=== PATIENT | female | born 1980 | race Caucasian/White ===

== ENCOUNTER 2020-05-05 16:34 | Outpatient (REF) | payer BC, SELFPAY | END 2020-05-05 16:35 | disposition home or self-care (01) | LOC: HO.LAB 16:34 | PROVIDERS: Visit Provider Hospitalist | DX: Z20.828 Contact with and (suspected) exposure to other viral communicable diseases (principal) | CPT/HCPCS: U0003 ==

== ENCOUNTER 2020-07-23 20:38 | Emergency (ER) | payer BC, OTHER, SELFPAY ==
--- NOTE | ~2020-07-23 | XR_ITS ---
EXAMINATION: XR ANKLE, LEFT CLINICAL INFORMATION: Ankle pain COMPARISON: None TECHNIQUE: AP, lateral, and mortise views of the left ankle. FINDINGS: Visualized portion of the distal tibia and fibula demonstrate no fracture. There is no focal soft tissue swelling of the ankle. Ankle mortise is well-maintained. No gross ankle joint effusion. XR/XR ankle LT 2V IMPRESSION: No fracture or dislocation left ankle.
[2020-07-23 21:04] VITALS: BP 123/80; PULSE 82; RESP 15; TEMP 36.6; O2SAT 96; BMI 37.8
--- NOTE | 2020-07-23 21:13 | ED.LOWEXIN ---
HPI - Extremity Injury (Lower) General Chief Complaint: Extremity Injury, Lower Stated Complaint: Ankle Injury Time Seen by Provider: 07/23/20 21:13 Source: patient Mode of arrival: ambulatory History of Present Illness HPI Narrative: This is a 39-year-old female without significant past medical history who states that she misstepped and fell down 3 stairs and describes an inversion injury to the left ankle at which time she felt/heard a pop and had immediate swelling afterwards. She denies any numbness or tingling in that lower extremity. Patient denies hitting her head or LOC. Related Data Previous Rx's Medication Instructions Recorded ondansetron HCl 8 mg tablet 8 mg PO Q8H PRN #20 tab 05/05/20 hydroxyzine HCl 50 mg tablet 50 mg PO Q6H PRN 30 Days #120 tab 06/29/20 zolpidem 10 mg tablet 10 mg PO BEDTIME PRN 30 Days #30 06/29/20 tab Allergies Allergy/AdvReac Type Severity Reaction Status Date / Time acetaminophen [From PERCOCET] Allergy Severe HIVES Verified 07/23/20 21:01 oxycodone [From PERCOCET] Allergy Severe HIVES Verified 07/23/20 21:01 codeine [CODEINE] Allergy Unknown HIVES Verified 07/23/20 21:01 guaifenesin AdvReac Unknown HEART RACES Verified 07/23/20 21:01 [From ROBITUSSIN CHEST CONGESTION] Codeine Phosphate Allergy Unknown Hives Uncoded 07/23/20 21:01 Pt states no food allergies Allergy Unknown Unknown Uncoded 07/23/20 21:01 Robitussin Chest Congestion Allergy Unknown Hives Uncoded 07/23/20 21:01 Robitussin Cold/Congestion Allergy Unknown Hives Uncoded 07/23/20 21:01 Review of Systems Review of Systems: Pertinent positives and negatives as stated in HPI 10 point review of systems is otherwise negative. [facility] Past Medical History Source: nursing notes reviewed Social History Social History Alcohol intake: never Smoked in Last 30 Days: No Use of substances other than those prescribed or required for medical reasons: No Substance Use Type: Marijuana Advance Directives: No Advance Directives Information Provided: Yes Physical Exam Vital Signs: Vital Signs: Last Vital Signs Temp 97.8 F 07/23/20 21:04 Pulse 82 02/28/21 21:04 Resp 15 07/23/20 21:04 BP 123/80 07/23/20 21:04 Pulse Ox 96 07/23/20 21:04 Body Mass Index 37.8 VITAL SIGNS: Reviewed. GENERAL: Well developed, well nourished, in no acute distress. HEAD: Normocephalic/atraumatic OROPHARYNX: no oral lesions noted, posterior pharynx clear NECK: Supple, no adenopathy LUNGS: Normal breath sounds. No adventitious sounds or accessory muscle use. SpO2<96> CARDIOVASCULAR: Regular rate and rhythm without noted murmurs ABDOMEN: Soft, non-tender, non-distended with bowel sounds. LEFT ANKLE: There is swelling noted to the medial and lateral malleolus with tenderness on palpation, no mid foot or calcaneal tenderness, sensation is intact, capillary refill less than 3 seconds, palpable DP/PT pulses SKIN: Inspection of the skin reveals no rashes NEUROLOGIC: Alert and oriented x 4. Course Course Course Narrative: This is a 39-year-old female with history and clinical presentation consistent with ankle sprain which was further corroborated by x-rays that were negative for fracture or dislocation. Patient was treated with comp patient analgesics, and Alexis wrap was applied, and patient was provided with crutches and crutch training. She was then discharged in stable condition with instructions to follow-up with a primary care provider. Discharge Plan Discharge Clinical Impression: Left ankle sprain Qualifiers: Encounter type: initial encounter Involved ligament of ankle: unspecified ligament Qualified Code(s): S93.402A - Sprain of unspecified ligament of left ankle, initial encounter Patient Disposition: Home, Self-Care Instructions: Crutch Instructions (ED), Ankle Sprain (ED) Additional Instructions: 1. Tylenol 1000 mg, orally, every 6 hours as needed for pain control. Do not exceed 4000 mg within 24 hours. 2. Ibuprofen 400 mg, orally with milk or food, every 6 hours as needed for pain control. Take in conjunction with the Tylenol for synergistic effect. 3. Apply ice to unexposed skin for 15-20 minutes, 3 to 4 times a day, and elevate when possible. 4. Please follow-up with your primary care provider for re-evaluation and continued outpatient management in 2-3 days. Do not hesitate to return to the emergency department for any acute worsening of your symptoms. Prescriptions: No Action zolpidem [Ambien] 10 mg tablet 10 mg PO BEDTIME PRN (Reason: insomnia) 30 Days Qty: 30 RF: 3 hydroxyzine HCl 50 mg tablet 50 mg PO Q6H PRN (Reason: anxiety) 30 Days Qty: 120 RF: 3 ondansetron HCl 8 mg tablet 8 mg PO Q8H PRN (Reason: nausea and vomiting) Qty: 20 RF: 0 Referrals: Rikki Stearns MD [Primary Care Provider] - 2 days (Re-evaluation outpatient management of left ankle sprain.) Stand Alone Forms: Work/School Release
[2020-07-23] MEDS: Ketorolac Tromethamine 15 MG/ML VIAL IM (21:54)
[2020-07-23] MEDS: Acetaminophen 325 MG TABLET 975 MG PO (21:54)
== END 2020-07-23 22:40 | disposition home or self-care (01) ==
PROVIDERS: Emergency Provider Student in an Organized Health Care Education/Training Program; PCP Internal Medicine
DX: S93.402A Sprain of unspecified ligament of left ankle, initial encounter (principal); M25.572 Pain in left ankle and joints of left foot; W10.9XXA Fall (on) (from) unspecified stairs and steps, initial encounter; Y93.9 Activity, unspecified; Y92.9 Unspecified place or not applicable; Y99.9 Unspecified external cause status; Z79.899 Other long term (current) drug therapy
CPT/HCPCS: 73600; 96372; 99284; J1885

== ENCOUNTER 2021-03-20 09:58 | Outpatient (REF) | payer BC, OTHER, SELFPAY ==
[2021-03-20 13:05] LABS: HIV AB/AG Nonreactive (Nonreactive); HIV Num 1 0.06 S/CO (0.00-0.99); ~HepC Num1 0.07 S/CO (0.00-0.79); ~Hepatitis C Antibody Nonreactive (Nonreactive)
[2021-03-20 13:45] LABS: HBc Num1 0.07 S/CO (0.00-0.79); Hepatitis B Core Antibody Nonreactive (Nonreactive)
[2021-03-20 14:00] LABS: CT PCR NOT DETECTED (Not Detect.); NG PCR NOT DETECTED (Not Detect.)
[2021-03-21 07:49] LABS: Syphilis Screen Nonreactive (Nonreactive)
[2021-03-21 08:30] LABS: BV Int Neg Control Negative (Negative); BV Int Pos Control Positive (Positive)
[2021-03-23 15:01] LABS: HPV mRNA E6/E7 rflx Not Detected (Not Detected)
== END 2021-03-20 09:59 | disposition home or self-care (01) ==
LOC: HO.LAB 09:58
PROVIDERS: PCP Internal Medicine; Visit Provider Advanced Practice Midwife
DX: Z01.411 Encounter for gynecological examination (general) (routine) with abnormal findings (principal); Z11.4 Encounter for screening for human immunodeficiency virus [HIV]; Z11.3 Encounter for screening for infections with a predominantly sexual mode of transmission; N92.1 Excessive and frequent menstruation with irregular cycle; Z20.2 Contact with and (suspected) exposure to infections with a predominantly sexual mode of transmission; Z97.5 Presence of (intrauterine) contraceptive device
CPT/HCPCS: 36415; 86704; 86780; 86803; 87389; 87480; 87491; 87510; 87591; 87624; 87660; 88142

== ENCOUNTER → 2021-05-08 09:44 | Outpatient (BNVA) | payer BC, OTHER, SELFPAY | PROVIDERS: PCP Internal Medicine; Visit Provider Advanced Practice Midwife | DX: Z30.433 Encounter for removal and reinsertion of intrauterine contraceptive device (principal) | CPT/HCPCS: 58300; 58301 ==

== ENCOUNTER 2021-08-12 03:46 | Emergency (ER) | payer BC, OTHER, SELFPAY ==
[2021-08-12 03:49] VITALS: BP 128/78; PULSE 85; RESP 16; TEMP 36.7; O2SAT 97; BMI 35.6
[2021-08-12 05:10] VITALS: BP 129/81; PULSE 81; RESP 12; TEMP 36.7; O2SAT 96
--- NOTE | 2021-08-12 05:18 | ED_ITS ---
HPI - Dental/Oral General Chief complaint: Dental/Oral Stated complaint: facial swelling Time Seen by Provider: 08/12/21 05:18 Source: patient Mode of arrival: ambulatory Limitations: no limitations History of Present Illness HPI Narrative: Patient's history of dental cavities comes here for increased pain the right lower molar with swelling of the face for last 2 days no fever no chills patient able to open the mouth Related Data Previous Rx's Medication Instructions Recorded zolpidem 10 mg tablet (Ambien) 10 mg PO BEDTIME PRN 30 Days #30 02/15/21 tab hydroxyzine HCl 50 mg tablet 50 - 100 mg PO Q6H PRN #240 tab 07/26/21 mirtazapine 15 mg tablet 15 mg PO BEDTIME #30 tab 07/26/21 clindamycin HCl 300 mg capsule 300 mg PO Q6H #40 cap 08/12/21 tramadol 50 mg tablet 50 mg PO Q6H PRN #20 tab 08/12/21 Allergies Allergy/AdvReac Type Severity Reaction Status Date / Time acetaminophen [From PERCOCET] Allergy Severe HIVES Verified 05/08/21 10:31 oxycodone [From PERCOCET] Allergy Severe HIVES Verified 05/08/21 10:31 codeine [CODEINE] Allergy Unknown HIVES Verified 05/08/21 10:31 guaifenesin AdvReac Unknown HEART RACES Verified 05/08/21 10:31 [From ROBITUSSIN CHEST CONGESTION] Codeine Phosphate Allergy Unknown Hives Uncoded 01/09/21 13:07 Pt states no food allergies Allergy Unknown Unknown Uncoded 01/09/21 13:07 Robitussin Chest Congestion Allergy Unknown Hives Uncoded 01/09/21 13:07 Review of Systems Review of Systems: Yes all other systems are reviewed and are negative PMFSH Past Medical History Medical History Anxiety Depression GERD without esophagitis Insomnia Obesity Surgical History History of lumpectomy of right breast History of renal stent Social History Social History Housing: Apartment Alcohol intake: never Patient Tobacco Use Status: Never used Tobacco Second Hand Smoke Exposure: Yes Substance Use Type: Marijuana Advance Directives: No Patient : No service: No Current occupational status: employed 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 Oriented X3. No acute distress. ENT: Pharynx normal. Oral Mucosa moist Мария to right lower 2nd molar, diffuse caries, no significant gum swelling, right facial cellulitis+ sinuses not tender Neck: Normal inspection. Neck supple. CVS: Normal heart rate and rhythm. Pulses normal. Respiratory: No respiratory distress. Equal air entry bilateral, no wheezing/rales/rhonchi Abdomen: Soft and nontender. Bowel sounds are present, Skin: Skin warm and dry. Normal skin color. Normal skin turgor. Extremities: No lower extremity edema. No calf tenderness Neuro: Oriented X 3. HENMT: Teeth image: 1. Broken tooth with diffuse caries Discharge Plan Discharge Clinical Impression: Dental caries Patient Disposition: Home, Self-Care Instructions: Tooth Extraction (DC) Additional Instructions: Take medication as prescribed Follow with dentist Report to ER if worsening of the swelling of pain or high-grade Prescriptions: New clindamycin HCl 300 mg capsule 300 mg PO Q6H Qty: 40 0RF tramadol 50 mg tablet 50 mg PO Q6H PRN (Reason: pain) Qty: 20 0RF No Action zolpidem [Ambien] 10 mg tablet 10 mg PO BEDTIME PRN (Reason: insomnia) 30 Days Qty: 30 3RF Rx Instructions: #14 due to pts insurance - may partially fill hydroxyzine HCl 50 mg tablet 50 - 100 mg PO Q6H PRN (Reason: for anxiety) Qty: 240 0RF mirtazapine 15 mg tablet 15 mg PO BEDTIME Qty: 30 0RF Stand Alone Forms: Work/School Release Interventions: ED Discharge Assessment Last Done: 08/12/21 05:41 Discharge Date/Time: 08/12/21 05:43
[2021-08-12] MEDS: traMADoL HCL 50 MG TABLET PO (05:34)
[2021-08-12] MEDS: Clindamycin HCL 300 MG CAPSULE PO (05:34)
== END 2021-08-12 05:43 | disposition home or self-care (01) ==
PROVIDERS: Emergency Provider Internal Medicine; PCP Internal Medicine
DX: K02.9 Dental caries, unspecified (principal); Z79.899 Other long term (current) drug therapy
CPT/HCPCS: 99283

== ENCOUNTER 2021-12-19 12:00 | Outpatient (REF) | payer BC, OTHER, SELFPAY ==
[2021-12-19 13:19] LABS: Hematocrit 42.2 % (37.0-47.0); Hemoglobin 14.2 g/dl (12.0-16.0); Mean Corpuscular HGB Conc 33.6 g/dl (31.0-35.0); Mean Corpuscular Hemoglobin 28.4 pg (27.0-33.0); Mean Corpuscular Volume 84.4 fL (80.0-98.0); Mean Platelet Volume 8.6 fL (9.4-12.3); Platelet Count 324 X10*3/uL (160-400); Red Cell Distribution Width 12.4 % (11.0-16.0); White Blood Count 8.3 X10*3/uL (4.8-10.8)
[2021-12-19 13:40] LABS: Alanine Aminotransferase 30 U/L (0-31); Albumin Level 4.3 g/dL (3.5-5.0); Alkaline Phosphatase 53 U/L (39-117); Anion Gap 12 (12-20); Aspartate Amino Transferase 19 U/L (5-31); Bilirubin Direct 0.3 mg/dL (0.0-0.5); Bilirubin Total 0.7 mg/dL (0.0-1.0); Blood Urea Nitrogen 11 mg/dL (9-16); Carbon Dioxide 22 mmol/L (22-29); Chloride 105 mmol/L (96-108); Estimated Glomerular Filt Rate > 60; Glucose Random 105 mg/dL (60-115); Potassium 4.5 mmol/L (3.3-5.1); Sodium 134 mmol/L (135-145); Total Protein 7.3 g/dL (6.5-8.0)
[2021-12-19 14:02] LABS: TSH reflex Free T4 1.07 uIU/mL (0.32-4.0)
== END 2021-12-19 12:01 | disposition home or self-care (01) ==
LOC: HO.LAB 12:00
PROVIDERS: PCP Internal Medicine; Visit Provider Physician Assistant
DX: M54.81 Occipital neuralgia (principal); I10 Essential (primary) hypertension
CPT/HCPCS: 36415; 80048; 80076; 84443; 85027

== ENCOUNTER 2022-06-24 16:47 | Outpatient (REF) | payer BC, OTHER, SELFPAY ==
[2022-06-24 17:30] LABS: Influenza A PCR NEGATIVE (Negative); Influenza B PCR NEGATIVE (Negative); Resp Syncy Virus RNA Qual PCR NEGATIVE (Negative); SARS COV2 PCR INHOUSE NEGATIVE (Negative)
== END 2022-06-24 16:48 | disposition home or self-care (01) ==
LOC: HO.LNP 16:47
PROVIDERS: Visit Provider Physician Assistant
DX: Z20.822 Contact with and (suspected) exposure to COVID-19 (principal); R51.9 Headache, unspecified
CPT/HCPCS: 0241U

== ENCOUNTER 2022-07-29 10:28 | Outpatient (REF) | payer BC, OTHER, SELFPAY ==
--- NOTE | ~2022-07-29 | XR_ITS ---
EXAMINATION: CERVICAL SPINE 3 VIEWS CLINICAL INFORMATION: Cervicalgia. COMPARISON: None. TECHNIQUE: Frontal, lateral and odontoid views are obtained. FINDINGS: Vertebral body heights are normal. There is mild reversal of the normal lordotic curvature. At C3-C4, there is a 2 mm anterolisthesis. At C4-C5 and C5-C6, there are 3 mm anterolistheses. No acute fracture or spondylolisthesis is seen. There is multi-level mild lower cervical anterior spondylosis. The dens is intact. The posterior elements are intact. No prevertebral soft tissue swelling is seen. XR/XR thoracic spine 2V IMPRESSION: 1. There is mild degenerative disc disease at C3-C4 through C5-C6. 2. There is mild lower cervical spondylosis. EXAMINATION: XR THORACIC SPINE CLINICAL INFORMATION: Pain. COMPARISON: None TECHNIQUE: AP and lateral views of the thoracic spine were obtained. FINDINGS: Vertebral body heights and alignment are normal. The disc spaces are well-maintained. No acute fracture or spondylolisthesis is seen. There is multi-level mild lower thoracic spondylosis. The posterior elements are intact. There is no prevertebral soft tissue swelling. The dens and C7-T1 interface are normal. IMPRESSION: 1. No acute fracture or spondylolisthesis is seen. 2. The thoracic disc spaces are well-maintained. 3. There is multi-level mild lower thoracic spondylosis.
--- NOTE | ~2022-07-29 | XR_ITS ---
EXAMINATION: CERVICAL SPINE 3 VIEWS CLINICAL INFORMATION: Cervicalgia. COMPARISON: None. TECHNIQUE: Frontal, lateral and odontoid views are obtained. FINDINGS: Vertebral body heights are normal. There is mild reversal of the normal lordotic curvature. At C3-C4, there is a 2 mm anterolisthesis. At C4-C5 and C5-C6, there are 3 mm anterolistheses. No acute fracture or spondylolisthesis is seen. There is multi-level mild lower cervical anterior spondylosis. The dens is intact. The posterior elements are intact. No prevertebral soft tissue swelling is seen. XR/XR cervical spine 2V IMPRESSION: 1. There is mild degenerative disc disease at C3-C4 through C5-C6. 2. There is mild lower cervical spondylosis. EXAMINATION: XR THORACIC SPINE CLINICAL INFORMATION: Pain. COMPARISON: None TECHNIQUE: AP and lateral views of the thoracic spine were obtained. FINDINGS: Vertebral body heights and alignment are normal. The disc spaces are well-maintained. No acute fracture or spondylolisthesis is seen. There is multi-level mild lower thoracic spondylosis. The posterior elements are intact. There is no prevertebral soft tissue swelling. The dens and C7-T1 interface are normal. IMPRESSION: 1. No acute fracture or spondylolisthesis is seen. 2. The thoracic disc spaces are well-maintained. 3. There is multi-level mild lower thoracic spondylosis.
[2022-07-29 10:41] LABS: MANUAL DIFF FLAG NO
[2022-07-29 11:08] LABS: Basophils Absolute Auto 0.1 X10*3/uL (0.0-0.2); Basophils Percent Auto 0.6 % (0-2); Eosinophils Absolute Auto 0.1 X10*3/uL (0.0-0.4); Eosinophils Percent Auto 1.2 % (0-4); Hemoglobin 14.5 g/dl (12.0-16.0); Imm Gran Abs Auto 0.06 X10*3/uL (0.00-0.03); Imm Gran Pct Auto 0.7 % (0.0-0.4); Lymphocytes Absolute Auto 2.2 X10*3/uL (1.2-4.9); Lymphocytes Percent Auto 26.3 % (20-40); Mean Corpuscular Hemoglobin 28.7 pg (27.0-33.0); Mean Platelet Volume 8.5 fL (9.4-12.3); Monocytes Absolute Auto 0.7 X10*3/uL (0.1-1.2); Monocytes Percent Auto 8.2 % (2-11); Neutrophils Absolute Auto 5.1 x10*3/uL (2.0-8.3); Platelet Count 317 X10*3/uL (160-400); Red Blood Count 5.06 X10*6/uL (4.20-5.50); Red Cell Distribution Width 13.1 % (11.0-16.0); White Blood Count 8.2 X10*3/uL (4.8-10.8)
[2022-07-29 12:02] LABS: Alanine Aminotransferase 28 U/L (0-31); Albumin Level 4.2 g/dL (3.5-5.0); Alkaline Phosphatase 54 U/L (39-117); Anion Gap 12 (12-20); Aspartate Amino Transferase 17 U/L (5-31); Bilirubin Total 0.9 mg/dL (0.0-1.0); Blood Urea Nitrogen 9 mg/dL (9-16); Calcium 8.8 mg/dL (8.4-10.2); Carbon Dioxide 25 mmol/L (22-29); Chloride 106 mmol/L (96-108); Cholesterol 184 mg/dL; Estimated Glomerular Filt Rate > 60; Glucose Random 119 mg/dL (60-115); HDL Cholesterol 48 mg/dL; LDL Cholesterol Calculated 119 mg/dl; Potassium 4.7 mmol/L (3.3-5.1); Sodium 138 mmol/L (135-145); Total Protein 6.9 g/dL (6.5-8.0); Triglycerides 88 mg/dL
[2022-07-29 12:24] LABS: TSH reflex Free T4 1.37 uIU/mL (0.32-4.0); Vitamin B12 281 pg/mL (200-900); Vitamin D 25-OH Total 6.7 ng/mL (>30)
== END 2022-07-29 10:29 | disposition home or self-care (01) ==
LOC: HO.LAB 10:28
PROVIDERS: PCP Internal Medicine; Visit Provider Nurse Practitioner Family
DX: Z13.29 Encounter for screening for other suspected endocrine disorder (principal); Z13.21 Encounter for screening for nutritional disorder; Z13.0 Encounter for screening for diseases of the blood and blood-forming organs and certain disorders involving the immune mechanism; M54.2 Cervicalgia; M54.6 Pain in thoracic spine
CPT/HCPCS: 36415; 72040; 72070; 80053; 80061; 82306; 82607; 84443; 85025

== ENCOUNTER 2022-08-12 10:47 | Emergency (ER) | payer BC, OTHER, SELFPAY ==
--- NOTE | ~2022-08-12 | CT_ITS ---
EXAMINATION: CT ABDOMEN AND PELVIS WITHOUT CONTRAST CLINICAL INFORMATION: Right-sided abdominal pain. COMPARISON: None available. TECHNIQUE: Multidetector volumetric imaging was performed from the superior aspect of the liver through the pubic symphysis. Sagittal and coronal reformatted images were obtained on the technologist's workstation. This CT examination was performed using dose optimization techniques as appropriate, variously including the following: *Automated exposure control *Adjustment of mA and/or kV according to patient size (this includes techniques or standardized protocols for targeted exams where dose is matched to indication/reason for exam; i.e. extremities or head) *Use of iterative reconstruction technique DLP: 840 mGy-cm FINDINGS: Lung bases: There is minimal atelectatic changes in both lung bases. Heart size is normal. LIVER, GALLBLADDER, AND BILIARY TREE: The liver is normal in size, shape, and attenuation. No focal hepatic lesion or biliary ductal dilatation is present. The gallbladder is unremarkable with no evidence of radiopaque gallstones, gallbladder wall thickening, or obvious pericholecystic inflammatory changes. PANCREAS: Unremarkable. SPLEEN: Unremarkable. ADRENAL GLANDS: Unremarkable. KIDNEYS AND URETERS: The kidneys are normal in size, shape, and attenuation. No hydronephrosis, hydroureter, or calculi seen. No perinephric stranding. BLADDER: Unremarkable. GASTROINTESTINAL TRACT: The small and large bowel are unremarkable. The appendix is unremarkable. ABDOMINAL WALL: No significant hernia is appreciated. LYMPH NODES: Normal. VASCULAR: Unremarkable. PELVIC VISCERA: There is 3.8 x 3.4 cm left ovarian cyst. The uterus is anteverted with an IUD in place. OSSEOUS STRUCTURES: No aggressive lytic or sclerotic process seen. CT/CT abdomen pelvis wo IV con IMPRESSION: No significant abnormality seen. Especially there is no abnormality seen in the right lower quadrant. Left ovarian simple cyst. Fleischner guidelines were followed.
[2022-08-12 10:50] VITALS: BP 148/86; PULSE 85; RESP 18; TEMP 36.6; O2SAT 98; BMI 37.8
--- NOTE | 2022-08-12 10:54 | ED.ABDPAIN ---
HPI - Abdominal Pain General Chief Complaint: Abdominal Pain <ROSAS Cabrales - Last Filed: 08/12/22 10:56> Stated Complaint: sharp abd pain, nauseous, vomiting <ROSAS Cabrales - Last Filed: 08/12/22 10:56> Time Seen by Provider: 08/12/22 12:23 <ROSAS Cabrales - Last Filed: 08/12/22 10:56> Source: patient <Trent Macias MD - Last Filed: 08/12/22 16:18> Mode of arrival: ambulatory <Trent Macias MD - Last Filed: 08/12/22 16:18> Limitations: no limitations <Trent Macias MD - Last Filed: 08/12/22 16:18> History of Present Illness HPI narrative: 41-year-old female came in for evaluation of abdominal pain. Since yesterday patient been having mid abdominal pain stabbing wound that radiates to the right upper quadrant area and the right lower quadrant area. Pain is intermittent associated with nausea but no vomiting. Patient has no frequency urination, no dysuria, no blood in the urine, normal bowel movement yesterday with no diarrhea or blood. Never had surgery in the past. Patient decline of being . <Trent Macias MD - Last Filed: 08/12/22 16:18> Related Data Home Medications: Previous Rx's Medication Instructions Recorded albuterol sulfate 90 mcg/actuation 2 puff inhalation Q6H PRN 02/11/22 aerosol inhaler (ProAir HFA) shortness of breath or wheezing 30 days #18 grams hydroxyzine HCl 50 mg tablet 50 - 100 mg PO Q6H PRN for anxiety 07/01/22 #240 tabs tizanidine 2 mg tablet 2 mg PO Q8H PRN muscle spasms 30 07/01/22 days #90 tabs zolpidem 10 mg tablet (Ambien) 10 mg PO BEDTIME PRN insomnia 30 07/01/22 days #30 tabs cholecalciferol (vitamin D3) 50 50 mcg PO DAILY #30 caps 07/29/22 mcg (2,000 unit) capsule nitrofurantoin 100 mg PO BID #14 caps 08/12/22 monohydrate/macrocrystals 100 mg capsule (Macrobid) <ROSAS Cabrales - Last Filed: 08/12/22 10:56> Allergies/Adverse Reactions: Allergies Allergy/AdvReac Type Severity Reaction Status Date / Time acetaminophen [From PERCOCET] Allergy Severe HIVES Verified 08/12/22 10:50 oxycodone [From PERCOCET] Allergy Severe HIVES Verified 08/12/22 10:50 codeine [CODEINE] Allergy Unknown HIVES Verified 08/12/22 10:50 guaifenesin AdvReac Unknown HEART RACES Verified 08/12/22 10:50 [From ROBITUSSIN CHEST CONGESTION] Codeine Phosphate Allergy Unknown Hives Uncoded 08/12/22 10:50 Pt states no food allergies Allergy Unknown Unknown Uncoded 08/12/22 10:50 Robitussin Chest Congestion Allergy Unknown Hives Uncoded 08/12/22 10:50 <ROSAS Cabrales - Last Filed: 08/12/22 10:56> Review of Systems Review of Systems All other systems are reviewed and are negative Constitutional: Reports as per HPI and Reports no additional constitutional complaints Eyes: Reports as per HPI and Reports no additional eye complaints Reports system reviewed and no additional complaints, except as documented Cardiovascular: Reports as per HPI and Reports no additional cardiovascular complaints Respiratory: Reports as per HPI and Reports no additional respiratory complaints Gastrointestinal: Reports as per HPI and Reports no additional gastrointestinal complaints Genitourinary: Reports no additional female genitourinary complaints Musculoskeletal: Reports no additional musculoskeletal complaints Skin/Breast: Reports system reviewed and no additional complaints, except as docu Psychiatric: Reports no additional psychiatric complaints Endocrine: Reports no additional endocrine complaints Hematologic/Lymphatic: Reports no additional hematologic/lymphatic complaints Allergic/Immunologic: Reports no additional allergic/immunologic complaints Reports system reviewed and no additional complaints, except as documented and Reports Abnormal speech present <Trent Macias MD - Last Filed: 08/12/22 16:18> [facility] Past Medical History Medical History: Medical History Anxiety Degenerative disc disease, cervical Depression GERD without esophagitis Impaired glucose metabolism Insomnia Migraines Obesity Right leg paresthesias Thoracic back pain Thoracic spondylosis <ROSAS Cabrales - Last Filed: 08/12/22 10:56> Surgical History: Surgical History History of lumpectomy of right breast History of renal stent <ROSAS Cabrales - Last Filed: 08/12/22 10:56> Social History Social History: Social History Housing: Apartment Alcohol intake: never Patient Tobacco Use Status: Never used Tobacco Tobacco use type: Cigarette Smoked in Last 30 Days: Yes e-Cigarette/Vaping Use: Never Used Second Hand Smoke Exposure: Yes Use of substances other than those prescribed or required for medical reasons: No Substance Use Type: Marijuana Advance Directives: No Advance Directives Information Provided: Yes Patient : No service: No Current occupational status: employed 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 Cognitive needs: No Hearing needs: No Vision needs: No <ROSAS Cabrales - Last Filed: 08/12/22 10:56> Physical Exam ED Vital Signs: Vital Signs - 24 hr 08/12/22 10:50 08/12/22 11:15 08/12/22 12:25 Temperature 98 F 98.9 F 98 F Pulse Rate 85 79 81 Respiratory Rate 18 18 18 Blood Pressure 148/86 H 140/80 H 126/73 Pulse Oximetry 98 98 95 Oxygen Delivery Method Room Air Room Air Room Air 08/12/22 15:17 Temperature 98 F Pulse Rate 70 Respiratory Rate 17 Blood Pressure 128/77 Pulse Oximetry 96 Oxygen Delivery Method Room Air BMI result Body Mass Index 37.8 <ROSAS Cabrales - Last Filed: 08/12/22 10:56> Vital Signs - 24 hr 08/12/22 10:50 08/12/22 11:15 08/12/22 12:25 Temperature 98 F 98.9 F 98 F Pulse Rate 85 79 81 Respiratory Rate 18 18 18 Blood Pressure 148/86 H 140/80 H 126/73 Pulse Oximetry 98 98 95 Oxygen Delivery Method Room Air Room Air Room Air 08/12/22 15:17 Temperature 98 F Pulse Rate 70 Respiratory Rate 17 Blood Pressure 128/77 Pulse Oximetry 96 Oxygen Delivery Method Room Air BMI result Body Mass Index 37.8 Vital signs have been reviewed as appeared to be correct. Blood pressure normal. Heart rate normal. Respiration rate normal. Temperature normal. Oxygen saturation normal. <Trent Macias MD - Last Filed: 08/12/22 16:18> Appearance: Alert. Oriented X3. No acute distress. Head: Normal external exam. Normocephalic. Atraumatic. No Michelle signs noted. No raccoon eyes noted Eyes: PERRLA. EOMI. Conjunctiva and sclera normal. Eyelids normal. ENT: TM's Normal. Pharynx normal. Uvula midline. Moist mucous membranes. No trismus noted. No drooling noted. No muffled voice noted. Neck: Normal inspection. Neck supple. FROM. No adenopathy. Thyroid Normal. No meningeal signs. No neck mass noted. CVS: Normal heart rate and rhythm. Heart sound normal. No murmurs noted. Pulses normal throughout. Respiratory: No respiratory distress. Painless inspiration. Breath sounds normal. No wheezes/rales/rhonchi noted. Chest nontender. No accessory muscle usage noted or decreased air movement noted. Abdomen: Soft and nontender. Bowel sounds normal in all 4 quadrants. No distention noted. No organomegaly noted. No visible injury noted. Back: No CVA tenderness. Full range of motion noted. Skin: Skin warm and dry. Normal skin color. Normal skin turgor. No rashes/lesions/lacerations noted. Extremities: No lower extremity edema. Extremities exhibit normal range of motion. Extremities nontender. Neuro: Oriented X 3. Cranial nerve exam: II-XII are grossly intact No motor deficit. No sensory deficit. Reflexes normal. <Trent Macias MD - Last Filed: 08/12/22 16:18> Course Course Course Narrative: This is an RME: Additional HPI, ROS, PE not included below will be deferred to primary provider. 41-year-old female history of depression, bipolar disorder presents with epigastric pain that radiates to the right upper quadrant 20 meds 1 day. Patient reports associated nausea, vomiting, diarrhea. No known sick contacts. Was not drinking for the holidays. Denies fevers, chills, chest pain, shortness of breath, hematemesis, hematochezia. Physical exam-well appearing, no acute distress Plan- labs, medication. <ROSAS Cabrales - Last Filed: 08/12/22 10:56> This is an RME: Additional HPI, ROS, PE not included below will be deferred to primary provider. 41-year-old female history of depression, bipolar disorder presents with epigastric pain that radiates to the right upper quadrant 20 meds 1 day. Patient reports associated nausea, vomiting, diarrhea. No known sick contacts. Denies fevers, chills, chest pain, shortness of breath, hematemesis, hematochezia. Physical exam-well appearing, no acute distress Plan- labs, medication. <Trent Macias MD - Last Filed: 08/12/22 16:18> Reevaluation(s) Reevaluation #1: UTI start on Macrobid and encouraged to drink plenty of fluids. <Trent Macias MD - Last Filed: 08/12/22 16:18> Time: 14:41 <Trent Macias MD - Last Filed: 08/12/22 16:18> Medical Decision Making Differential Diagnosis Differential Diagnoses: The differential diagnosis associated with the presentation includes (Kidney stone, kidney infection, gallbladder disease, sepsis, gastritis.) <Trent Macias MD - Last Filed: 08/12/22 16:18> Lab Data MDM Lab Attestation statement: I reviewed the patient's lab results. <Trent Macias MD - Last Filed: 08/12/22 16:18> Result Diagrams: 08/12/22 11:02 08/12/22 11:02 <ROSAS Cabrales - Last Filed: 08/12/22 10:56> Labs: Lab Results 08/12/22 08/12/22 08/12/22 Range/Units 11:02 11:02 11:02 WBC 10.4 (4.8-10.8) X10*3/uL RBC 4.90 (4.20-5.50) X10*6/uL Hgb 14.1 (12.0-16.0) g/dl Hct 42.8 (37.0-47.0) % MCV 87.3 (80.0-98.0) fL MCH 28.8 (27.0-33.0) pg MCHC 32.9 (31.0-35.0) g/dl RDW 13.0 (11.0-16.0) % Plt Count 270 (160-400) X10*3/uL MPV 8.5 L (9.4-12.3) fL Immature Gran % (Auto) 0.7 H (0.0-0.4) % Neut % (Auto) 73.1 H (45-73) % Lymph % (Auto) 17.5 L (20-40) % [place] % (Auto) 7.3 (2-11) % Eos % (Auto) 0.9 (0-4) % Baso % (Auto) 0.5 (0-2) % Lymph # (Auto) 1.8 (1.2-4.9) X10*3/uL [place] # (Auto) 0.8 (0.1-1.2) X10*3/uL Eos # (Auto) 0.1 (0.0-0.4) X10*3/uL Baso # (Auto) 0.1 (0.0-0.2) X10*3/uL Abs Immat Gran (auto) 0.07 H (0.00-0.03) X10*3/uL Absolute Neuts (auto) 7.6 (2.0-8.3) x10*3/uL Absolute Nucleated RBC 0.000 (0.0-0.012) X10*3/uL Nucleated RBC % (auto) 0.0 (0.0-0.2) /100WBC Sodium 137 (135-145) mmol/L Potassium 4.2 (3.3-5.1) mmol/L Chloride 106 (96-108) mmol/L Carbon Dioxide 25 (22-29) mmol/L Anion Gap 10 L (12-20) BUN 10 (9-16) mg/dL Creatinine 0.75 (0.5-1.4) mg/dL Estim Creat Clear Calc 113.5 Estimated GFR > 60 Random Glucose 128 H (60-115) mg/dL Calcium 8.6 (8.4-10.2) mg/dL Magnesium 2.2 (1.6-2.6) mg/dL Total Bilirubin 0.7 (0.0-1.0) mg/dL AST 15 (5-31) U/L ALT 27 (0-31) U/L Alkaline Phosphatase 58 (39-117) U/L Total Protein 6.9 (6.5-8.0) g/dL Albumin 4.0 (3.5-5.0) g/dL Lipase 14 (8-78) U/L Urine Color Urine Appearance Urine pH (5.0-9.0) Ur Specific [place] (1.005-1.025) Urine Protein (Neg-Trace) mg/dL Urine Glucose (UA) (Negative) mg/dL Urine Ketones (Negative) mg/dL Urine Blood (Negative) Urine Nitrite (Negative) Ur Leukocyte Esterase (Negative) Urine RBC (0-2) /HPF Urine WBC (0-5) /HPF Ur Squamous Epith Cells (0-2) /HPF Urine Bacteria (None Seen) Hyaline Casts (0-2) /LPF Urine Test (NEGATIVE) COVID-19 (BRYAN) (Negative) COVID-19 Clin Com Influenza Type A (BART) Negative (Negative) Influenza Type B (BART) Negative (Negative) Influenza A & B Note See Note 08/12/22 08/12/22 08/12/22 Range/Units 11:02 11:02 11:02 WBC (4.8-10.8) X10*3/uL RBC (4.20-5.50) X10*6/uL Hgb (12.0-16.0) g/dl Hct (37.0-47.0) % MCV (80.0-98.0) fL MCH (27.0-33.0) pg MCHC (31.0-35.0) g/dl RDW (11.0-16.0) % Plt Count (160-400) X10*3/uL MPV (9.4-12.3) fL Immature Gran % (Auto) (0.0-0.4) % Neut % (Auto) (45-73) % Lymph % (Auto) (20-40) % [place] % (Auto) (2-11) % Eos % (Auto) (0-4) % Baso % (Auto) (0-2) % Lymph # (Auto) (1.2-4.9) X10*3/uL [place] # (Auto) (0.1-1.2) X10*3/uL Eos # (Auto) (0.0-0.4) X10*3/uL Baso # (Auto) (0.0-0.2) X10*3/uL Abs Immat Gran (auto) (0.00-0.03) X10*3/uL Absolute Neuts (auto) (2.0-8.3) x10*3/uL Absolute Nucleated RBC (0.0-0.012) X10*3/uL Nucleated RBC % (auto) (0.0-0.2) /100WBC Sodium (135-145) mmol/L Potassium (3.3-5.1) mmol/L Chloride (96-108) mmol/L Carbon Dioxide (22-29) mmol/L Anion Gap (12-20) BUN (9-16) mg/dL Creatinine (0.5-1.4) mg/dL Estim Creat Clear Calc Estimated GFR Random Glucose (60-115) mg/dL Calcium (8.4-10.2) mg/dL Magnesium (1.6-2.6) mg/dL Total Bilirubin (0.0-1.0) mg/dL AST (5-31) U/L ALT (0-31) U/L Alkaline Phosphatase (39-117) U/L Total Protein (6.5-8.0) g/dL Albumin (3.5-5.0) g/dL Lipase (8-78) U/L Urine Color Yellow Urine Appearance Clear Urine pH 6.0 (5.0-9.0) Ur Specific [place] 1.020 (1.005-1.025) Urine Protein Negative (Neg-Trace) mg/dL Urine Glucose (UA) Negative (Negative) mg/dL Urine Ketones Negative (Negative) mg/dL Urine Blood Negative (Negative) Urine Nitrite Negative (Negative) Ur Leukocyte Esterase Moderate (2+) H (Negative) Urine RBC 0-2 (0-2) /HPF Urine WBC 11-20 H (0-5) /HPF Ur Squamous Epith Cells 3-5 (0-2) /HPF Urine Bacteria Trace (None Seen) Hyaline Casts 0-2 (0-2) /LPF Urine Test NEGATIVE (NEGATIVE) COVID-19 (BRYAN) Negative (Negative) COVID-19 Clin Com See Note Influenza Type A (BART) (Negative) Influenza Type B (BART) (Negative) Influenza A & B Note <ROSAS Cabrales Last Filed: 08/12/22 10:56> Lab Results 08/12/22 08/12/22 08/12/22 Range/Units 11:02 11:02 11:02 WBC 10.4 (4.8-10.8) X10*3/uL RBC 4.90 (4.20-5.50) X10*6/uL Hgb 14.1 (12.0-16.0) g/dl Hct 42.8 (37.0-47.0) % MCV 87.3 (80.0-98.0) fL MCH 28.8 (27.0-33.0) pg MCHC 32.9 (31.0-35.0) g/dl RDW 13.0 (11.0-16.0) % Plt Count 270 (160-400) X10*3/uL MPV 8.5 L (9.4-12.3) fL Immature Gran % (Auto) 0.7 H (0.0-0.4) % Neut % (Auto) 73.1 H (45-73) % Lymph % (Auto) 17.5 L (20-40) % [place] % (Auto) 7.3 (2-11) % Eos % (Auto) 0.9 (0-4) % Baso % (Auto) 0.5 (0-2) % Lymph # (Auto) 1.8 (1.2-4.9) X10*3/uL [place] # (Auto) 0.8 (0.1-1.2) X10*3/uL Eos # (Auto) 0.1 (0.0-0.4) X10*3/uL Baso # (Auto) 0.1 (0.0-0.2) X10*3/uL Abs Immat Gran (auto) 0.07 H (0.00-0.03) X10*3/uL Absolute Neuts (auto) 7.6 (2.0-8.3) x10*3/uL Absolute Nucleated RBC 0.000 (0.0-0.012) X10*3/uL Nucleated RBC % (auto) 0.0 (0.0-0.2) /100WBC Sodium 137 (135-145) mmol/L Potassium 4.2 (3.3-5.1) mmol/L Chloride 106 (96-108) mmol/L Carbon Dioxide 25 (22-29) mmol/L Anion Gap 10 L (12-20) BUN 10 (9-16) mg/dL Creatinine 0.75 (0.5-1.4) mg/dL Estim Creat Clear Calc 113.5 Estimated GFR > 60 Random Glucose 128 H (60-115) mg/dL Calcium 8.6 (8.4-10.2) mg/dL Magnesium 2.2 (1.6-2.6) mg/dL Total Bilirubin 0.7 (0.0-1.0) mg/dL AST 15 (5-31) U/L ALT 27 (0-31) U/L Alkaline Phosphatase 58 (39-117) U/L Total Protein 6.9 (6.5-8.0) g/dL Albumin 4.0 (3.5-5.0) g/dL Lipase 14 (8-78) U/L Urine Color Urine Appearance Urine pH (5.0-9.0) Ur Specific [place] (1.005-1.025) Urine Protein (Neg-Trace) mg/dL Urine Glucose (UA) (Negative) mg/dL Urine Ketones (Negative) mg/dL Urine Blood (Negative) Urine Nitrite (Negative) Ur Leukocyte Esterase (Negative) Urine RBC (0-2) /HPF Urine WBC (0-5) /HPF Ur Squamous Epith Cells (0-2) /HPF Urine Bacteria (None Seen) Hyaline Casts (0-2) /LPF Urine Test (NEGATIVE) COVID-19 ([facility]AN) (Negative) COVID-19 Clin Com Influenza Type A (BART) Negative (Negative) Influenza Type B (BART) Negative (Negative) Influenza A & B Note See Note 08/12/22 08/12/22 08/12/22 Range/Units 11:02 11:02 11:02 WBC (4.8-10.8) X10*3/uL RBC (4.20-5.50) X10*6/uL Hgb (12.0-16.0) g/dl Hct (37.0-47.0) % MCV (80.0-98.0) fL MCH (27.0-33.0) pg MCHC (31.0-35.0) g/dl RDW (11.0-16.0) % Plt Count (160-400) X10*3/uL MPV (9.4-12.3) fL Immature Gran % (Auto) (0.0-0.4) % Neut % (Auto) (45-73) % Lymph % (Auto) (20-40) % [place] % (Auto) (2-11) % Eos % (Auto) (0-4) % Baso % (Auto) (0-2) % Lymph # (Auto) (1.2-4.9) X10*3/uL [place] # (Auto) (0.1-1.2) X10*3/uL Eos # (Auto) (0.0-0.4) X10*3/uL Baso # (Auto) (0.0-0.2) X10*3/uL Abs Immat Gran (auto) (0.00-0.03) X10*3/uL Absolute Neuts (auto) (2.0-8.3) x10*3/uL Absolute Nucleated RBC (0.0-0.012) X10*3/uL Nucleated RBC % (auto) (0.0-0.2) /100WBC Sodium (135-145) mmol/L Potassium (3.3-5.1) mmol/L Chloride (96-108) mmol/L Carbon Dioxide (22-29) mmol/L Anion Gap (12-20) BUN (9-16) mg/dL Creatinine (0.5-1.4) mg/dL Estim Creat Clear Calc Estimated GFR Random Glucose (60-115) mg/dL Calcium (8.4-10.2) mg/dL Magnesium (1.6-2.6) mg/dL Total Bilirubin (0.0-1.0) mg/dL AST (5-31) U/L ALT (0-31) U/L Alkaline Phosphatase (39-117) U/L Total Protein (6.5-8.0) g/dL Albumin (3.5-5.0) g/dL Lipase (8-78) U/L Urine Color Yellow Urine Appearance Clear Urine pH 6.0 (5.0-9.0) Ur Specific [place] 1.020 (1.005-1.025) Urine Protein Negative (Neg-Trace) mg/dL Urine Glucose (UA) Negative (Negative) mg/dL Urine Ketones Negative (Negative) mg/dL Urine Blood Negative (Negative) Urine Nitrite Negative (Negative) Ur Leukocyte Esterase Moderate (2+) H (Negative) Urine RBC 0-2 (0-2) /HPF Urine WBC 11-20 H (0-5) /HPF Ur Squamous Epith Cells 3-5 (0-2) /HPF Urine Bacteria Trace (None Seen) Hyaline Casts 0-2 (0-2) /LPF Urine Test NEGATIVE (NEGATIVE) COVID-19 ([facility]YAN) Negative (Negative) COVID-19 Clin Com See Note Influenza Type A (BART) (Negative) Influenza Type B (BART) (Negative) Influenza A & B Note <Trent Macias MD - Last Filed: 08/12/22 16:18> Independent Interpretation I performed an independent interpretation of an: CT Scan (Abdomen: No acute pathology.) <Trent Macias MD - Last Filed: 08/12/22 16:18> Radiology Impression Discussion of test interpretation with radiology: I have reviewed the radiologist's reading. (No significant abnormality seen. Especially there is no abnormality seen in the right lower quadrant. Left ovarian simple cyst. ) <Trent Macias MD - Last Filed: 08/12/22 16:18> Medications Administered Discontinued Medications Generic Name Dose Route Start Last Admin Trade Name Freq PRN Reason Stop Dose Admin Al Hydroxide/Mg Hydroxide 30 ml 08/12/22 10:53 08/12/22 11:42 Magnesium Hydrox/Alum Hydrox 30 Ml Oral.Susp PO 08/12/22 10:54 30 ml ONCE ONE Administration Belladonna Alkaloids/Phenobarbital 10 ml 08/12/22 10:53 08/12/22 11:42 Phenobarb/Hyoscy/Atropine/Scop 10 Ml Elixir PO 08/12/22 10:54 10 ml ONCE ONE Administration Hydromorphone HCl 1 mg 08/12/22 15:02 08/12/22 15:28 Hydromorphone Hcl 2 Mg Tablet PO 08/12/22 15:03 1 mg ONCE ONE Administration Loperamide HCl 2 mg 08/12/22 10:53 08/12/22 11:41 Loperamide Hcl 2 Mg Capsule PO 08/12/22 10:54 2 mg ONCE ONE Administration Ondansetron HCl 4 mg 08/12/22 10:53 08/12/22 11:41 Ondansetron Odt 4 Mg Tab.Rapdis TRANSLINGU 08/12/22 10:54 4 mg ONCE ONE Administration <ROSAS Cabrales - Last Filed: 08/12/22 10:56> Medications Administered Discontinued Medications Generic Name Dose Route Start Last Admin Trade Name Torsten PRN Reason Stop Dose Admin Al Hydroxide/Mg Hydroxide 30 ml 08/12/22 10:53 08/12/22 11:42 Magnesium Hydrox/Alum Hydrox 30 Ml Oral.Susp PO 08/12/22 10:54 30 ml ONCE ONE Administration Belladonna Alkaloids/Phenobarbital 10 ml 08/12/22 10:53 08/12/22 11:42 Phenobarb/Hyoscy/Atropine/Scop 10 Ml Elixir PO 08/12/22 10:54 10 ml ONCE ONE Administration Hydromorphone HCl 1 mg 08/12/22 15:02 08/12/22 15:28 Hydromorphone Hcl 2 Mg Tablet PO 08/12/22 15:03 1 mg ONCE ONE Administration Loperamide HCl 2 mg 08/12/22 10:53 08/12/22 11:41 Loperamide Hcl 2 Mg Capsule PO 08/12/22 10:54 2 mg ONCE ONE Administration Ondansetron HCl 4 mg 08/12/22 10:53 08/12/22 11:41 Ondansetron Odt 4 Mg Tab.Rapdis TRANSLINGU 08/12/22 10:54 4 mg ONCE ONE Administration <Trent Macias MD - Last Filed: 08/12/22 16:18> Discharge Plan Discharge Clinical Impression: Abdominal pain, UTI (urinary tract infection) <ROSAS Cabrales - Last Filed: 08/12/22 10:56> Patient Disposition: Home, Self-Care <ROSAS Cabrales - Last Filed: 08/12/22 10:56> Instructions: Urinary Tract Infection in Women (ED) <ROSAS Cabrales - Last Filed: 08/12/22 10:56> Prescriptions: New nitrofurantoin monohyd/m-cryst [Macrobid] 100 mg capsule 100 mg PO BID Qty: 14 0RF Rx Instructions: must administer with a meal/food No Action albuterol sulfate [ProAir HFA] 90 mcg/actuation HFA aerosol inhaler 2 puff inhalation Q6H PRN (Reason: shortness of breath or wheezing) 30 Days Qty: 18 1RF cholecalciferol (vitamin D3) 50 mcg (2,000 unit) capsule 50 mcg PO DAILY Qty: 30 3RF hydroxyzine HCl 50 mg tablet 50 - 100 mg PO Q6H PRN (Reason: for anxiety) Qty: 240 2RF tizanidine 2 mg tablet 2 mg PO Q8H PRN (Reason: muscle spasms) 30 Days Qty: 90 2RF zolpidem [Ambien] 10 mg tablet 10 mg PO BEDTIME PRN (Reason: insomnia) 30 Days Qty: 30 2RF Rx Instructions: #14 due to pts insurance - may partially fill <ROSAS Cabrales - Last Filed: 08/12/22 10:56> Referrals: Rikki Stearns MD [Primary Care Provider] - <ROSAS Cabrales - Last Filed: 08/12/22 10:56> Stand Alone Forms: Work/School Release <ROSAS Cabrales - Last Filed: 08/12/22 10:56>
[2022-08-12 11:08] LABS: MANUAL DIFF FLAG NO
[2022-08-12 11:10] LABS: Basophils Absolute Auto 0.1 X10*3/uL (0.0-0.2); Basophils Percent Auto 0.5 % (0-2); Eosinophils Absolute Auto 0.1 X10*3/uL (0.0-0.4); Eosinophils Percent Auto 0.9 % (0-4); Hematocrit 42.8 % (37.0-47.0); Hemoglobin 14.1 g/dl (12.0-16.0); Imm Gran Abs Auto 0.07 X10*3/uL (0.00-0.03); Imm Gran Pct Auto 0.7 % (0.0-0.4); Lymphocytes Absolute Auto 1.8 X10*3/uL (1.2-4.9); Lymphocytes Percent Auto 17.5 % (20-40); Mean Corpuscular HGB Conc 32.9 g/dl (31.0-35.0); Mean Corpuscular Hemoglobin 28.8 pg (27.0-33.0); Mean Corpuscular Volume 87.3 fL (80.0-98.0); Mean Platelet Volume 8.5 fL (9.4-12.3); Monocytes Absolute Auto 0.8 X10*3/uL (0.1-1.2); Monocytes Percent Auto 7.3 % (2-11); Neutrophils Absolute Auto 7.6 x10*3/uL (2.0-8.3); Neutrophils Percent Auto 73.1 % (45-73); Platelet Count 270 X10*3/uL (160-400); White Blood Count 10.4 X10*3/uL (4.8-10.8)
[2022-08-12 11:12] LABS: Appearance Urine Clear; Color Urine Yellow; Glucose Urine UA Negative (Negative); Leukocyte Esterase Urine Moderate (2+) (Negative); Nitrite Urine Negative (Negative); UMIC TRIGGER UACC YES; Urine Blood Negative (Negative); Urine Ketones Negative (Negative); Urine Protein Negative (Neg-Trace)
[2022-08-12 11:15] VITALS: BP 140/80; PULSE 79; RESP 18; TEMP 37.2; O2SAT 98
[2022-08-12 11:18] LABS: UPreg QC Valid YES; Urine Pregnancy NEGATIVE (NEGATIVE)
[2022-08-12 11:25] LABS: IDNOW Serial# 9DB6401D; Influenza A Negative (Negative); Influenza B2 Negative (Negative)
[2022-08-12 11:26] LABS: COVID-19 Test Negative (Negative); IDNOW Serial# BCCEAD1C
[2022-08-12 11:29] LABS: Alanine Aminotransferase 27 U/L (0-31); Alkaline Phosphatase 58 U/L (39-117); Anion Gap 10 (12-20); Aspartate Amino Transferase 15 U/L (5-31); Bilirubin Total 0.7 mg/dL (0.0-1.0); Blood Urea Nitrogen 10 mg/dL (9-16); Calcium 8.6 mg/dL (8.4-10.2); Carbon Dioxide 25 mmol/L (22-29); Chloride 106 mmol/L (96-108); Creatinine Clr Calc Pharmacy 113.5; Estimated Glomerular Filt Rate > 60; Glucose Random 128 mg/dL (60-115); Magnesium 2.2 mg/dL (1.6-2.6); Potassium 4.2 mmol/L (3.3-5.1); Sodium 137 mmol/L (135-145); Total Protein 6.9 g/dL (6.5-8.0)
[2022-08-12] MEDS: Loperamide HCl 2 MG CAPSULE PO (11:41)
[2022-08-12] MEDS: Ondansetron ODT 4 MG TAB.RAPDIS TRANSLINGU (11:41)
[2022-08-12] MEDS: Magnesium Hydrox/Alum Hydrox 30 ML ORAL.SUSP PO (11:42)
[2022-08-12] MEDS: PHENobarb/Hyoscy/Atropine/Scop 10 ML ELIXIR PO (11:42)
[2022-08-12 12:05] LABS: Bacteria Urine Trace (None Seen); Hyaline Casts Urine 0-2 /LPF (0-2); RBC Urine 0-2 /HPF (0-2); UACC Culture Trigger YES
[2022-08-12 12:06] LABS: Lipase 14 U/L (8-78)
[2022-08-12 12:25] VITALS: BP 126/73; PULSE 81; RESP 18; TEMP 36.6; O2SAT 95
--- NOTE | 2022-08-12 13:10 | PC.NURSE ---
jacquie (mlp) at bedside. pt/son-in-law aware of plan of care.
[2022-08-12 15:17] VITALS: BP 128/77; PULSE 70; RESP 17; TEMP 36.6; O2SAT 96
[2022-08-12] MEDS: HYDROmorphone HCl 2 MG TABLET 1 MG PO (15:28)
[2022-08-12 17:21] VITALS: BP 128/69; PULSE 84; RESP 16; O2SAT 97
== END 2022-08-12 17:22 | disposition home or self-care (01) ==
PROVIDERS: Physician Assistant; Emergency Provider Emergency Medicine; PCP Internal Medicine
DX: N39.0 Urinary tract infection, site not specified (principal); R10.11 Right upper quadrant pain; R10.31 Right lower quadrant pain; Z20.822 Contact with and (suspected) exposure to COVID-19; R11.0 Nausea; M50.30 Other cervical disc degeneration, unspecified cervical region
CPT/HCPCS: 74176; 80053; 81001; 81025; 83690; 83735; 85025; 87086; 87502; 87635; 99284

== ENCOUNTER 2022-10-09 13:30 | Outpatient (RCR) | payer BC, OTHER, SELFPAY ==
[2022-09-20 10:55] VITALS: BP 136/82; PULSE 88; TEMP 37
[2022-09-20 10:58] VITALS: BMI 36.3
--- NOTE | 2022-09-20 11:33 | PC.ADMIT ---
Patient is a 41 year old female who was referred to PHP by [facility] crisis d/t increased depression and anxiety with panic attacks. Patient denied SI. 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 Patient also reports having panic attacks at work. Patient reports she has been on a leave of absence from work since August 27, 2022 d/t her mental health sxs. 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 Patient presents with depressed mood, anxious affect. Denied SI or thoughts to harm herself. She is alert and oriented x4. Calm and cooperative. Medications reconciled with patient and patient's pharmacy. Patient stated she takes Hydroxyzine 50 mg tab for anxiety prn and at times has taken 4 tabs to try and relieve her anxiety however it is still not working. I advised her not to take 4 tabs and to take it as prescribed. I also educated her on potential side effects of taken more than the prescribed dose. Ashely Issa CNP is aware. She also reports Ambien not working for sleep. Ashely Whalen CNP is also aware.
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
--- NOTE | 2022-09-20 14:36 | PC.NURSE ---
Ashely Issa CNP discontinued Hydroxyzine.
--- NOTE | 2022-09-26 15:18 | HO.PHP ---
Clients case was reviewed and opened today in treatment team.
--- NOTE | 2022-09-27 09:55 | P.PNPSP_ITS ---
Subjective Subjective Date of Service: 09/27/22 Reason For Visit: bipolar depression, anxiety Medical Problems Affecting Mental Status: No Interim History: Reports having increased anxiety, panic attacks. Grieving loss of her aunt who earlier this week. States ?I am super emotional right now ?. No SI, no safety concerns. Medication Compliance: Yes Side effects from medications: No Attending Groups: Yes Review of Systems Acute medical concerns: No Medical Review of Systems: unchanged Review of Systems Review of Systems Yes all other systems are reviewed and are negative Constitutional: Reports no additional constitutional complaints Mental Status Exam Mental Status Exam Narrative: Anxious, tearful during encounter Patient Appearance: Well Grooomed Patient Orientation: Person, Place, Time and Situation Level of Consciousness: Appropriate Patient Behavior: Appropriate, Cooperative and Crying Mood Description: Depressed and Anxious Affect Description: Depressed and Anxious Patient Cognition Impaired: No Ability to Follow Directions: Excellent Speech Pattern: Clear Memory Description: Intact Hallucinations: None Delusions: Not Present Thought Process: Intact Thought Content: positive for Intact Depressive Symptoms: Increased Anxiety, Crying Spells, Sleeping More Than Usual, Loss of Int. in Activity, Isolating-Friends/Family, Unhappiness, Increased Fatigue, Low Self Esteem and Loss of Energy Judgement: Fair Diagnostics Vital Signs (24Hr): BMI result Body Mass Index 36.3 Assessment & Plan Assessment & Plan (1) Bipolar 2 disorder: Status: Acute Code(s): F31.81 - Bipolar II disorder Assessment and Plan: Continues with anxiety, depression. Experiencing anxiety regarding eventual return to work. Also lost her on a earlier this week, grieving her passing. Reports experiencing panic attacks several times past few days. States that these have been debilitating when they occur. States the clonidine is helping overall with anxiety, she has been using 0.1 mg b.i.d. with good effect. Blood pressure has been okay. Checked in this office, currently 129/87, pulse 94. We discussed her ongoing depression. Due to underlying bipolar disorder hesitant to start an antidepressant, discussed this with her in detail, as not wanting to induce manic or hypomanic state. She was in agreement with this. She denies any SI, feels safe. Reviewed lamotrigine titration schedule. Has taken 1 full week of lamotrigine 25 mg, 1 week left. Discussed titrating up to 50 mg x 2 weeks, to be followed by 100 mg daily. She states that she understands. She has not experienced any side effects. Patient has taken lorazepam in the past, found it helpful. Discussed adding a short 1 times script, due to current panic attacks. Discussed 1st trying the clonidine and coping skills learned in group, and if no positive affect, then will try the Ativan. She was in agreement with this plan. Reviewed medications in general, including indications for use, side effects both benign and more serious, benefits. (2) Generalized anxiety disorder: Status: Acute Code(s): F41.1 - Generalized anxiety disorder Plan 1. Continue with current [facility] plan of care. 2. Refill for clonidine 0.1 mg b.i.d. p.r.n./anxiety sent to pharmacy. 3. Start lorazepam 0.5 mg daily p.r.n./anxiety, panic. 4. Patient to continue with 1 week left of lamotrigine 25 mg daily. 5. Two week script for lamotrigine 50 mg daily times 14 days sent, along with lamotrigine 100 mg daily, to start after completion of 50 mg daily. 6. Follow-up as per protocol. Patient educated on: diagnosis, medication risk/benefits and therapeutic strategies Informed Consent: understands Reason for contiued partial hosp. stay Substantial Risk for: inability to function and rapid decompensation Certification I certify that partial hospital treatment is medically necessary due to the symptoms and problems resulting from the patient's mental illness and the failure to treat the patient at the partial hospital level of care would likely result in the patient requiring inpatient psychiatric care which could not be prevented at a less intensive level of care. Total time managing care of this patient today _20___ minutes. Discharge Plan Discharge Attending provider: Stefano Ashford Medications: New lamotrigine 25 mg tablet 25 mg PO DAILY 14 Days Qty: 14 0RF clonidine HCl 0.1 mg tablet See Rx Instructions .ROUTE .COMPLEX Qty: 14 0RF Rx Instructions: Take 1/2 half to one tab twice daily as needed for anxiety. Hold if bp below 90/60. lamotrigine 25 mg tablet 50 mg PO DAILY 14 Days Qty: 28 0RF Rx Instructions: After completion of lamotrigine 25mg daily for 14 days, start taking lamotrigine 50mg (2 tabs) for 14 days. lamotrigine 100 mg tablet 100 mg PO DAILY Qty: 30 0RF Rx Instructions: After completion of lamotrigine 50mg daily for 14 days, start lamotrigine 100mg daily. clonidine HCl 0.1 mg tablet 0.1 mg PO BID PRN (Reason: anxiety) Qty: 60 0RF Rx Instructions: Take one tab twice daily as needed for anxiety. Hold for BP under 90/60 lorazepam 0.5 mg tablet 0.5 mg PO DAILY PRN (Reason: anxiety ) Qty: 10 0RF Rx Instructions: Take one daily as needed for anxiety. No Action cholecalciferol (vitamin D3) 50 mcg (2,000 unit) capsule 50 mcg PO DAILY Qty: 30 3RF zolpidem [Ambien] 10 mg tablet 10 mg PO BEDTIME PRN (Reason: insomnia) 30 Days Qty: 30 2RF Rx Instructions: #14 due to pts insurance - may partially fill tizanidine 2 mg tablet 2 mg PO Q8H PRN (Reason: muscle spasms) 30 Days Qty: 90 2RF Stand Alone Forms: Patient Portal Discharge page Patient Education: Clonidine (By mouth), Lorazepam (By mouth), Lamotrigine (By mouth)
--- NOTE | 2022-09-27 15:33 | HO.PHP ---
[facility] staff met with Misti to review her treatment plan. After reviewing the treatment plan, Misti was struggling with controlling her emotions and was crying. Misti engaged in conversation with [facility] staff around the passing of her family member and how that is bringing a lot of other emotions up around losing her brother and parents. Misti talked about her relationship with her half sister and the reason she resents her. Misti mentioned wanting a relationship with her half sister because she cares about her but doesn't know if her half sister will ever understand. [facility] staff actively listened to Misti and provided support. Misti was able to regulate and return back to groups.
--- NOTE | 2022-09-30 15:00 | HO.PHP ---
Contacted [facility] to place a referral and left a message. [facility] staff is awaiting a phone call back.
--- NOTE | 2022-10-01 07:33 | HO.PHP ---
[facility] staff placed a referral for OP and Psychiatric Services through [facility] for Misti.
--- NOTE | 2022-10-07 13:36 | HO.PHP ---
PHP staff followed up with Misti after the third group and prior to the fourth group to gather information regarding if she was feeling unsafe due to having feelings of being watched. Misti disclosed that she is not feeling unsafe. Misti mentioned her home is her safe place. Misti disclosed that she does not think someone is actually watching her and was more so scared due to seeing shadows and hearing knocking. PHP staff was receptive and stated if she was feeling unsafe she could go to get evaluated. Misti expressed no concerns around safety. PHP staff further assessed for safety and there were no concerns presented around self-harm, SI, plan and intent, or HI. Misti spoke with the staff member about her level of stress. Misti noted wanting to join a DBT group. PHP staff disclosed that she has been actively looking and mentioned that there is a waitlist at this time for the programs contacted. Misti was receptive. PHP staff mentioned she will continue to look and place referrals. Misti was in agreement.
--- NOTE | 2022-10-09 11:13 | P.PNPSP_ITS ---
Subjective Subjective Date of Service: 10/09/22 Reason For Visit: bipolar depression, anxiety Interim History: Continues with dysphoric mood, anxious, some panic attacks. Reports that she had ?a rough weekend ?. States that she felt as if somebody was watching her, believes it was related to increased anxiety. Reports the panic mostly regarding expected RTW, as she is hesitant to do so. 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 No SI, no safety concerns. Engaging in SIB, scratching antecubital areas on arms. REports a rash, states that it appears periodically when she is experiencing increased levels of stress. Currently taking lamotrigine 50mg, does not believe rash is related to medication, as she often has had it prior to meds. Medication Compliance: Yes Side effects from medications: No Attending Groups: Yes Review of Systems Acute medical concerns: No Medical Review of Systems: unchanged Review of Systems Review of Systems Yes all other systems are reviewed and are negative Skin/Breast: Reports rash (L arm antecub area, approx 7-8 cm area fine rash, multiple scratch chávez) Mental Status Exam Mental Status Exam Narrative: Anxious, tearful at times. Patient Appearance: Appropriate Patient Orientation: Person, Place, Time and Situation Level of Consciousness: Appropriate Patient Behavior: Appropriate, Cooperative and Crying (tearful at times) Mood Description: Depressed and Anxious Affect Description: Depressed (appears improving) and Anxious (less) Patient Cognition Impaired: No Ability to Follow Directions: Excellent Speech Pattern: Clear Memory Description: Intact Hallucinations: None Delusions: Not Present Thought Process: Intact Thought Content: positive for Intact and positive for Perseveration (focused on expected return to work, which she finds extremely stressful.) Depressive Symptoms: Increased Anxiety, Crying Spells, Loss of Int. in Activity and Loss of Energy Judgement: Good Diagnostics Vital Signs (24Hr): BMI result Body Mass Index 36.3 Assessment & Plan Assessment & Plan (1) Bipolar 2 disorder: Status: Acute Code(s): F31.81 - Bipolar II disorder Assessment and Plan: Continues with dysphoric mood, anxious, some panic attacks. Reports that she had ?a rough weekend ?. States that she felt as if somebody was watching her, believes it was related to increased anxiety. Sensation has ceased. Reports the panic mostly regarding expected RTW, as she is hesitant to do so. Feels overwhelmed at current position, has been seeking employment elsewhere. Has been interviewing, waiting to hear back. Is hopeful regarding this. Plans to return to current position part-time, at first. No SI, no safety concerns. Engaging in SIB, scratching antecubital areas on arms. Upon examination there are some scratch chávez present, slight rash. She states that this is normal for her, that she has a rash in this area whenever she feels overwhelmed, with multiple stressors. Reviewed lamotrigine titration schedule. In several days she is scheduled to increase dose to 100 mg daily. If rash worsens/breads, she knows to stop taking the medication and notify provider. She has outpatient therapy appointment scheduled for this Friday, and psychiatric intake appointment on October 22. Took the short script of lorazepam an, found it helpful. Using clonidine, with good effect. Feels fairly stable for discharge from [facility] at this time. (2) Generalized anxiety disorder: Status: Acute Code(s): F41.1 - Generalized anxiety disorder Plan 1. Patient appears stable for discharge from [facility] at this time. 2. Patient has adequate supply of medication until psychiatry appointment on October 22. 3. Patient to follow-up with outpatient providers going forward. Patient educated on: diagnosis, medication risk/benefits and therapeutic strategies Informed Consent: understands Reason for contiued partial hosp. stay Substantial Risk for: stable for discharge Certification I certify that partial hospital treatment is medically necessary due to the symptoms and problems resulting from the patient's mental illness and the failure to treat the patient at the partial hospital level of care would likely result in the patient requiring inpatient psychiatric care which could not be prevented at a less intensive level of care. Total time managing care of this patient today ___20_ minutes. Discharge Plan Discharge Attending provider: Stefano Ashford Medications: New lamotrigine 25 mg tablet 25 mg PO DAILY 14 Days Qty: 14 0RF clonidine HCl 0.1 mg tablet See Rx Instructions .ROUTE .COMPLEX Qty: 14 0RF Rx Instructions: Take 1/2 half to one tab twice daily as needed for anxiety. Hold if bp below 90/60. lamotrigine 25 mg tablet 50 mg PO DAILY 14 Days Qty: 28 0RF Rx Instructions: After completion of lamotrigine 25mg daily for 14 days, start taking lamot rigine 50mg (2 tabs) for 14 days. lamotrigine 100 mg tablet 100 mg PO DAILY Qty: 30 0RF Rx Instructions: After completion of lamotrigine 50mg daily for 14 days, start lamotrigine 100mg daily. clonidine HCl 0.1 mg tablet 0.1 mg PO BID PRN (Reason: anxiety) Qty: 60 0RF Rx Instructions: Take one tab twice daily as needed for anxiety. Hold for BP under 90/60 lorazepam 0.5 mg tablet 0.5 mg PO DAILY PRN (Reason: anxiety ) Qty: 10 0RF Rx Instructions: Take one daily as needed for anxiety. No Action cholecalciferol (vitamin D3) 50 mcg (2,000 unit) capsule 50 mcg PO DAILY Qty: 30 3RF zolpidem [Ambien] 10 mg tablet 10 mg PO BEDTIME PRN (Reason: insomnia) 30 Days Qty: 30 2RF Rx Instructions: #14 due to pts insurance - may partially fill tizanidine 2 mg tablet 2 mg PO Q8H PRN (Reason: muscle spasms) 30 Days Qty: 90 2RF Stand Alone Forms: Patient Portal Discharge page Patient Education: Clonidine (By mouth), Lorazepam (By mouth), Lamotrigine (By mouth), Depression (DC)
== END 2022-10-09 23:59 | disposition home or self-care (01) ==
LOC: HO.PHPA 13:30
PROVIDERS: Visit Provider Psychiatry & Neurology Psychiatry
DX: F31.81 Bipolar II disorder (principal); F41.1 Generalized anxiety disorder
CPT/HCPCS: 90791; 90853

== ENCOUNTER 2023-01-10 11:05 | Outpatient (REF) | payer BC, OTHER, SELFPAY ==
--- NOTE | ~2023-01-10 | XR_ITS ---
EXAMINATION: XR CHEST 2 VIEWS CLINICAL INFORMATION: Cough. COMPARISON: Chest radiographs dated 10/11/2018. TECHNIQUE: Frontal and lateral views of the chest were obtained. FINDINGS: The heart, great vessels, pulmonary vasculature and mediastinum are normal. The lungs show no focal infiltrate, effusion or pneumothorax. There is no acute osseous abnormality. There is mild thoracic spondylosis. XR/XR chest 2V IMPRESSION: No active cardiopulmonary disease.
[2023-01-10 11:18] LABS: MANUAL DIFF FLAG NO
[2023-01-10 11:44] LABS: Basophils Absolute Auto 0.1 X10*3/uL (0.0-0.2); Basophils Percent Auto 0.6 % (0-2); Eosinophils Absolute Auto 0.1 X10*3/uL (0.0-0.4); Hematocrit 44.4 % (37.0-47.0); Hemoglobin 14.7 g/dl (12.0-16.0); Imm Gran Abs Auto 0.06 X10*3/uL (0.00-0.03); Imm Gran Pct Auto 0.7 % (0.0-0.4); Lymphocytes Percent Auto 22.5 % (20-40); Mean Corpuscular HGB Conc 33.1 g/dl (31.0-35.0); Mean Corpuscular Hemoglobin 30.1 pg (27.0-33.0); Mean Platelet Volume 9.1 fL (9.4-12.3); Monocytes Absolute Auto 0.7 X10*3/uL (0.1-1.2); Monocytes Percent Auto 7.8 % (2-11); Neutrophils Absolute Auto 5.9 x10*3/uL (2.0-8.3); Neutrophils Percent Auto 67.4 % (45-73); Platelet Count 331 X10*3/uL (160-400); Red Blood Count 4.88 X10*6/uL (4.20-5.50); Red Cell Distribution Width 12.7 % (11.0-16.0); White Blood Count 8.8 X10*3/uL (4.8-10.8)
[2023-01-10 12:45] LABS: Alanine Aminotransferase 41 U/L (0-31); Albumin Level 4.3 g/dL (3.5-5.0); Alkaline Phosphatase 59 U/L (39-117); Anion Gap 14 (12-20); Aspartate Amino Transferase 21 U/L (5-31); Bilirubin Total 0.4 mg/dL (0.0-1.0); Blood Urea Nitrogen 12 mg/dL (9-16); Calcium 9.2 mg/dL (8.4-10.2); Carbon Dioxide 23 mmol/L (22-29); Chloride 106 mmol/L (96-108); Cholesterol 173 mg/dL; Estimated Glomerular Filt Rate > 60; Glucose Fasting 151 mg/dL (60-99); HDL Cholesterol 47 mg/dL; LDL Cholesterol Calculated 105 mg/dl; Potassium 4.3 mmol/L (3.3-5.1); Sodium 139 mmol/L (135-145); Total Protein 7.4 g/dL (6.5-8.0); Triglycerides 107 mg/dL
[2023-01-10 12:46] LABS: Troponin-I High Sensitivity < 2.7 ng/L (<3.5-17.0)
[2023-01-10 13:00] LABS: TSH reflex Free T4 0.83 uIU/mL (0.32-4.0); Vitamin D 25-OH Total 16.2 ng/mL (>30)
[2023-01-10 13:45] LABS: Appearance Urine Clear; Color Urine Yellow; Glucose Urine UA Negative (Negative); Leukocyte Esterase Urine Moderate (2+) (Negative); Nitrite Urine Negative (Negative); Specific Gravity - Urine 1.025 (1.005-1.025); UMIC TRIGGER UACC YES; Urine Blood Negative (Negative); Urine Ketones Negative (Negative); Urine Protein Negative (Neg-Trace)
[2023-01-10 13:47] LABS: Bacteria Urine 1+ (None Seen); Hyaline Casts Urine 0-2 /LPF (0-2); RBC Urine 0-2 /HPF (0-2); UACC Culture Trigger YES; WBC Urine 21-50 /HPF (0-5)
== END 2023-01-10 11:06 | disposition home or self-care (01) ==
LOC: HO.LAB 11:05
PROVIDERS: PCP Internal Medicine; Visit Provider Internal Medicine
DX: Z00.00 Encounter for general adult medical examination without abnormal findings (principal); R07.9 Chest pain, unspecified; I10 Essential (primary) hypertension; E55.9 Vitamin D deficiency, unspecified; J98.8 Other specified respiratory disorders; R05.9 Cough, unspecified; E78.00 Pure hypercholesterolemia, unspecified; R30.0 Dysuria
CPT/HCPCS: 36415; 71046; 80053; 80061; 81001; 82306; 84443; 84484; 85025; 87086

== ENCOUNTER 2023-02-19 13:28 | Outpatient (AMB) | payer BC, OTHER, SELFPAY ==
[2023-02-19 13:31] VITALS: BP 124/80; PULSE 90; O2SAT 97; BMI 34.2
--- NOTE | 2023-02-19 13:31 | A.OFFPC_ITS ---
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 Accompanied by: Self / Same As Patient Allergies acetaminophen [From PERCOCET] Allergy (Severe, Verified 02/19/23 14:01) HIVES oxycodone [From PERCOCET] Allergy (Severe, Verified 02/19/23 14:01) HIVES codeine [CODEINE] Allergy (Unknown, Verified 02/19/23 14:01) HIVES guaifenesin [From ROBITUSSIN CHEST CONGESTION] Adverse Reaction (Unknown, Verified 02/19/23 14:01) HEART RACES Codeine Phosphate Allergy (Unknown, Uncoded 02/19/23 14:01) Hives Pt states no food allergies Allergy (Unknown, Uncoded 02/19/23 14:01) Unknown Robitussin Chest Congestion Allergy (Unknown, Uncoded 02/19/23 14:01) Hives Medication List - Last Reconciled 02/19/23 by Rikki Stearns MD buspirone 7.5 mg PO BID clonidine HCl 0.1 mg PO TID PRN lamotrigine 100 mg PO DAILY lamotrigine 50 mg (2 x 25 mg) PO DAILY 14 days prazosin 1 mg PO BID tizanidine 2 mg PO Q8H PRN 30 days zolpidem (Ambien) 10 mg PO BEDTIME PRN 30 days Tobacco use date assessed: 02/19/23 Dental Screening Dental Screen Date: 02/19/23 Did you have a dental visit in the last 12 months?: No Did you have a dental problem in the last 6 months where you did not have access to dental care?: No Was dental information given to patient?: No HPI 3 MONTH F/U HPI Details Patient comes in today for her follow up visit States that she still has frequent MANJARREZ, jimena in the morning Notes (+) recurrent non-productive cough often and states that her breathing will then start to ease up once her coughing fits calm down She denies any nasal or sinus congestion; denies any fever or sore throat Denies any headaches or dizziness Denies any chest pains No nausea/vomiting, no abdominal pain No change in bowel habits noted States that she has noticed high blood sugar readings lately when she checks her blood sugar and reports that her readings went up to over 250 mg/dl a couple of times States that her grandmother is a diabetic so she is aware of what to look out for and what dietary changes to make or do for diabetes Feels that her anxiety and depression are now better controlled States that she went back to work a while ago and going back to work actually helped her a lot as it helps keep her mind busy Had her follow up labs done last month - to discuss her results [facility] Medical History (Updated 02/19/23 @ 15:23 by Rikki Stearns MD) Vitamin D deficiency Diabetes mellitus Obesity (BMI 30-39.9) Osteoarthritis Degenerative disc disease, cervical Thoracic spondylosis Impaired glucose metabolism Thoracic back pain Right leg paresthesias Migraines Obesity GERD without esophagitis Depression Anxiety Insomnia Surgical History History of renal stent History of lumpectomy of right breast Social History Household Members: Other Household Members Other:: 22 yr old daughter Housing: Apartment Alcohol intake: never Patient Tobacco Use Status: Never used Tobacco Tobacco use type: Cigarette e-Cigarette/Vaping Use: Never Used Second Hand Smoke Exposure: Yes Substance Use Type: Marijuana service: No Current occupational status: employed 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 1. Little interest or pleasure in doing things: nearly every day 2. Feeling down, depressed, or hopeless: nearly every day 3. Trouble falling or staying asleep, or sleeping too much: nearly every day 4. Feeling tired or having little energy: nearly every day 5. Poor appetite or overeating: nearly every day 6. Feeling bad about yourself - or that you are a failure or have let yourself or your family down: nearly every day 7. Trouble concentrating on things, such as reading the newspaper or watching television: nearly every day 8. Moving or speaking so slowly that other people could have noticed. Or the opposite - being so fidgety or restless that you have been moving around a lot more than usual: nearly every day 9. Thoughts that you would be better off or of hurting yourself in some way: not at all Total score: 24 Depression Screening Interpretation: Positive Depression Screening Follow-up: Existing condition and In treatment 91434 - PHQ-9 Billing: Yes Source: Developed by Drs. Misha Rock, Linda Forbes, James Jones and colleagues, with an educational irene from [employer]. Thrive Questionnaire Date Thrive assessed: 02/19/23 I am a: Patient What is your living situation today?: I have a steady place to live Within the past 12 months, did the food you bought not last and you didn't have the money to get more?: Never true Within the past 12 months, did you worry whether your food would run out before you got money to buy more?: Never true Do you have trouble paying for medicines?: No Do you have trouble getting transportation to medical appointments?: No Do you have trouble paying your heating and electricity bill?: No Do you have trouble taking care of your child, family member or friend?: No Do you have trouble with day-to-day activities such as bathing, preparing meals, shopping, managing finances, etc.?: No Are you currently unemployed and looking for a job?: No Are you interested in more education?: No Please select the resources that you would like help with: None Currently or been in a relationship where the following occur: no concerns reported AUDIT C Alcohol Use Questionnaire (AUDIT-C) 1. How often do you have a drink containing alcohol?: Never 3. How often do you have six or more drinks on one occasion?: Never Total Score: 0 Score Reviewed/Action Taken: Yes ELLEN-7 AMB Questionnaire ELLEN-7 Date ELLEN - 7 assessed: 02/19/23 Feeling nervous, anxious, or on edge: 0 = Not at all Not being able to stop or control worryin = Not at all Worrying too much about different things: 0 = Not at all Trouble relaxin = Not at all Being so restless that it is hard to sit still: 0 = Not at all Becoming easily annoyed or irritable: 0 = Not at all Feeling afraid as if something awful might happen: 0 = Not at all Total ELLEN-7 score (0-4 normal; 5-9 mild; 10-14 moderate; 15-21 severe): 0 Source: Developed by Drs. Misha Rock, Linda Forbes, James Jones and colleagues, with an educational irene from [employer]. Review of Systems Const Reports difficulty sleeping (better lately), Reports fatigue, Denies fever(s) and Denies headache(s) ENT Denies dysphagia, Denies dizziness, Denies otalgia, Denies headache(s), Reports neck pain (on and off), Denies odynophagia and Denies sore throat Card Denies chest pain, Denies rapid heart rate, Denies irregular heart rhythm, Denies palpitations and Reports dyspnea on exertion Resp Denies chest congestion (but chest feels tight at times), Reports cough (recurrent - see HPI), Reports dyspnea on exertion and Denies wheezing GI Denies abdominal pain, Denies constipation, Denies dysphagia, Denies heartburn, Denies diarrhea, Denies nausea, Denies odynophagia and Denies vomiting Denies hematuria, Denies urinary frequency, Reports nocturia, Denies dysuria, Denies urinary incontinence and Denies urinary urgency Musc Reports back pain (on and off), Denies arthralgias and Reports neck pain (on and off) Skin/Breast Denies rash Neuro Denies dizziness, Denies headache(s) and Denies paresthesias Psych Denies anxiety and Denies depression Endo Reports fatigue and Denies palpitations Harvey/Lymph Denies easy bruising Aller/Immun Denies wheezing Physical exam (Primary Care) Vital Signs: Last Vital Signs Pulse 90 02/19/23 13:31 BP 124/80 02/19/23 13:31 Pulse Ox 97 02/19/23 13:31 Oxygen Delivery Method Room Air 02/19/23 13:31 BMI result Body Mass Index 34.2 Tobacco/Smoking Status: Tobacco use Status Tobacco use date assessed 02/19/23 02/19/23 13:38 Patient Tobacco Use Status Never used Tobacco 02/19/23 13:38 Tobacco use type Cigarette 02/19/23 13:38 e-Cigarette/Vaping Use Never Used 02/19/23 13:38 PHQ-9: PHQ-9 Score PHQ-9: Total score 24 02/19/23 14:08 Depression Screening Interpretation: Positive Depression Screening Follow-up: Existing condition and In treatment Thrive Assessment: Date of Thrive Assessment Date Thrive assessed 02/19/23 02/19/23 13:38 Currently or been in a relationship where the following occur: no concerns reported Const General: no acute distress and alert HENMT Ears: TM's normal bilaterally and EAC's normal Throat: Yes posterior oropharynx normal and Yes tonsils normal (no TP congestion) Neck Neck: Yes no lymphadenopathy and Yes supple Thyroid: Thyroid normal Resp Auscultation: no rales, no wheezes and diminished lung sounds (lungs sound tight) bilateral Cardio Rate: regular rate Rhythm: regular rhythm Heart sounds: no murmurs GI Palpation (GI): Soft to palpation and nontender Auscultation: normal bowel sounds Back/Spine/Pelvis Cervical Spine: Cervical spine tenderness (mild) Thoracic/Lumbar Spine: thoracic spinal tenderness (mild) Skin Rashes: no rashes Extrem General: Yes no clubbing, cyanosis or edema Results AMB Hemoglobin A1c AMB Hemoglobin A1c 6.8 % Last Edit by Rolando Desai on 02/19/23 14:17 Results Reviewed Results Reviewed: Laboratory Tests 01/10/23 01/10/23 11:17 12:35 WBC 8.8 Hgb 14.7 Hct 44.4 Plt Count 331 Sodium 139 Potassium 4.3 Creatinine 0.79 Estimated GFR > 60 Fasting Glucose 151 H Calcium 9.2 D AST 21 ALT 41 H Triglycerides 107 Cholesterol 173 LDL Cholesterol, Calc 105 HDL Cholesterol 47 25-OH Vitamin D Total 16.2 TSH 0.83 Ur Specific Gooding 1.025 Urine Protein Negative Urine Glucose (UA) Negative Urine Blood Negative Assessment and Plan Assessment & Plan (1) Diabetes mellitus: Code(s): E11.9 - Type 2 diabetes mellitus without complications Qualifiers: Diabetes mellitus type: type 2 Diabetes mellitus nursing home insulin use: without watermelon inspector use Diabetes mellitus complication status: with hyperglycemia Qualified Code(s): E11.65 - Type 2 diabetes mellitus with hyperglycemia Plan: Newly-diagnosed In-office HgbA1c done today is at 6.8% Patient reports getting high blood sugar readings often lately when she checks her own blood sugar, and has gotten readings as high as >250 mg/dl a couple of times Advised that a HgbA1c of 6.8% classifies her now as a diabetic Discussed diabetic diet - patient states that she has prior knowledge and experience with diabetes and diabetic diets as her grandmother is a diabetic Will start her on Metformin 500 mg BID Will have her recheck her labs in 3 months for follow up (2) Dyspnea: Code(s): R06.00 - Dyspnea, unspecified Qualifiers: Dyspnea type: unspecified Qualified Code(s): R06.00 - Dyspnea, unspecified Plan: Patient reports feeling SOB often lately, 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 activities tend to trigger bouts/fits of coughing for a while Advised that her exam today revealed (+) tight breath sounds bilaterally Chest x-rays done last month came out normal Will send her for PFTs for further evaluation Will start her for now on Albuterol HFA 1 to 2 inhalations every 6 hours PRN (3) Migraines: Code(s): G43.909 - Migraine, unspecified, not intractable, without status migrainosus Qualifiers: Migraine type: unspecified Status migrainosus presence: without status migrainosus Intractability: not intractable Qualified Code(s): G43.909 - Migraine, unspecified, not intractable, without status migrainosus Plan: Reinforced avoidance of all potential migraine triggers May continue taking OTC headache meds PRN (4) Vitamin D deficiency: Code(s): E55.9 - Vitamin D deficiency, unspecified Plan: Advised that her Vitamin D level was very low on her recent labs Will start her on Vitamin D3 2000 units QD (5) Degenerative disc disease, cervical: Comment: mild degenerative disc disease C3-C4 throughout C5-C6 Code(s): M50.30 - Other cervical disc degeneration, unspecified cervical region Plan: Continue OTC Ibuprofen PRN (6) Thoracic spondylosis: Code(s): M47.814 - Spondylosis without myelopathy or radiculopathy, thoracic region Plan: Continue Tizanidine 2 mg Q HS PRN - Rx refilled (7) Insomnia: Code(s): G47.00 - Insomnia, unspecified Qualifiers: Insomnia type: unspecified Qualified Code(s): G47.00 - Insomnia, unspe cified Plan: Sleep hygiene reinforced Continue Zolpidem 10 mg Q HS (8) Generalized anxiety disorder: Code(s): F41.1 - Generalized anxiety disorder Plan: Continue Clonidine 0.1 mg TID and Buspirone 7.5 mg BID Follow up with psychiatry as scheduled (9) PTSD (post-traumatic stress disorder): Code(s): F43.10 - Post-traumatic stress disorder, unspecified Plan: Continue Prazosin 1 mg BID Follow up with psychiatry as scheduled (10) Bipolar 2 disorder: Code(s): F31.81 - Bipolar II disorder Plan: Continue Lamotrigine 150 mg QD and Prazosin 1 mg BID Follow up with psychiatry as scheduled (11) Obesity (BMI 30-39.9): Code(s): E66.9 - Obesity, unspecified Plan: Reinforced diet/exercise as tolerated/lose weight Plan Follow up in 3 months Orders: Orders Hemoglobin A1c 3 Months E11.9 - Type 2 diabetes mellitus without complications Complete Blood Count Auto Diff 3 Months I10 - Essential (primary) hypertension UA CC w/rflx Micro + Cult 3 Months R30.0 - Dysuria AMB Hemoglobin A1c Today Z13.9 - Encounter for screening, unspecified PFT pulmonary function test Today R06.00 - Dyspnea, unspecified Comprehensive [place]. Panel Fast 3 Months E78.00 - Pure hypercholesterolemia, unspecified Lipid Panel 3 Months E78.00 - Pure hypercholesterolemia, unspecified Microalbumin, Random (w Creat) 3 Months E11.9 - Type 2 diabetes mellitus without complications Medications: New metformin 500 mg PO BID 30 days 60 tabs 3RF albuterol sulfate 90 mcg/actuation (Ventolin HFA) 2 puffs inhalation Q6H 30 days PRN 8.5 grams 5RF shortness of breath or wheezing cholecalciferol (vitamin D3) 50 mcg PO DAILY 90 caps 3RF 90 days E55.9 - Vitamin D deficiency, unspecified Refilled tizanidine 2 mg PO Q8H 30 days PRN 90 tabs 2RF muscle spasms M54.2 - Cervicalgia zolpidem (Ambien) #14 due to pts insurance - may partially fill 10 mg PO BEDTIME 30 days PRN 30 tabs 2RF insomnia Coding Level of Care Code Est Pt Level 4 (47798) Diagnoses Type 2 diabetes mellitus with hyperglycemia, without long-term current use of insulin E11.65 Diabetes mellitus type: type 2 Diabetes mellitus nursing home insulin use: without nursing home use Diabetes mellitus complication status: with hyperglycemia Dyspnea, unspecified type R06.00 Dyspnea type: unspecified Migraine without status migrainosus, not intractable, unspecified migraine type G43.909 Migraine type: unspecified Status migrainosus presence: without status migrainosus Intractability: not intractable Vitamin D deficiency E55.9 Degenerative disc disease, cervical M50.30 Thoracic spondylosis M47.814 Insomnia, unspecified type G47.00 Insomnia type: unspecified Generalized anxiety disorder F41.1 PTSD (post-traumatic stress disorder) F43.10 Bipolar 2 disorder F31.81 Obesity (BMI 30-39.9) E66.9
== END 2023-02-19 14:28 | disposition home or self-care (01) ==
PROVIDERS: PCP Internal Medicine; Visit Provider Internal Medicine
DX: E11.65 Type 2 diabetes mellitus with hyperglycemia (principal); F31.81 Bipolar II disorder; R06.00 Dyspnea, unspecified; G43.909 Migraine, unspecified, not intractable, without status migrainosus; E55.9 Vitamin D deficiency, unspecified; M50.30 Other cervical disc degeneration, unspecified cervical region; M47.814 Spondylosis without myelopathy or radiculopathy, thoracic region; G47.00 Insomnia, unspecified; F41.1 Generalized anxiety disorder; F43.10 Post-traumatic stress disorder, unspecified; E66.9 Obesity, unspecified; Z68.34 Body mass index [BMI] 34.0-34.9, adult
CPT/HCPCS: 83036; 99214

== ENCOUNTER 2023-03-31 14:58 | Outpatient (REF) | payer BC, OTHER, SELFPAY ==
--- NOTE | 2023-03-31 15:55 | PFT_ITS ---
Forced vital capacity 75%, FEV1 72%. FEV1/FVC ratio is 78. [id number] 64% and MVV 63%. Post bronchodilator therapy, there is no significant change. Total lung capacity 70%. Residual volume 72%. Diffusion capacity 64%. CONCLUSION: Moderate degree of restrictive pulmonary disorder. There may be a mild degree of small airway obstructive disorder. No response to bronchodilator therapy. Clinical correlation is recommended. MD JENN Garcia/DANELLE / [id number]
== END 2023-03-31 14:59 | disposition home or self-care (01) ==
LOC: HO.RESP 14:58
PROVIDERS: PCP Internal Medicine; Visit Provider Internal Medicine
DX: R06.00 Dyspnea, unspecified (principal)
CPT/HCPCS: 94010; 94727; 94729

== ENCOUNTER → 2023-03-31 15:55 | Outpatient (BNV) | payer BC, OTHER, SELFPAY | PROVIDERS: PCP Internal Medicine; Visit Provider Internal Medicine | DX: R06.00 Dyspnea, unspecified (principal) | CPT/HCPCS: 94060; 94727; 94729 ==

== ENCOUNTER 2023-04-20 10:04 | Emergency (ER) | payer BC, OTHER, SELFPAY ==
[2023-04-20 10:13] VITALS: BP 166/100; PULSE 98; RESP 16; TEMP 37.1; O2SAT 98; BMI 34.2
[2023-04-20 10:31] LABS: Hematocrit 45.8 % (37.0-47.0); Hemoglobin 15.3 g/dl (12.0-16.0); Mean Corpuscular HGB Conc 33.4 g/dl (31.0-35.0); Mean Corpuscular Hemoglobin 30.3 pg (27.0-33.0); Mean Corpuscular Volume 90.7 fL (80.0-98.0); Mean Platelet Volume 8.5 fL (9.4-12.3); Platelet Count 321 X10*3/uL (160-400); Red Blood Count 5.05 X10*6/uL (4.20-5.50); Red Cell Distribution Width 12.4 % (11.0-16.0); White Blood Count 10.7 X10*3/uL (4.8-10.8)
--- NOTE | 2023-04-20 10:44 | ED_ITS ---
HPI - Headache General Chief Complaint: Nausea/Vomiting/Diarrhea Stated Complaint: Nausea, vomiting, fever Time Seen by Provider: 04/20/23 10:43 Source: patient and old records reviewed Mode of arrival: ambulatory Limitations: no limitations History of Present Illness HPI Narrative: 42 yo female with PMH of migraines, DM, bipolar disorder, anxiety here with c/o gradual onset headache yesterday while at rest that has worsened today. She is not on thinners but notes headache makes her feel woozy with photophobia, and n/v. She also feels more pain in face and pain with leaning forward. MD elicited complaint: migraine Pertinent past history: migraines Onset (ago): day(s) (yesterday) Onset description: gradually Location: frontal Severity: moderate Quality & Timing: throbbing Exacerbating factors: light and noise Relieving factors: rest and dark room Context: occurred at rest Associated symptoms: nausea, photophobia and other (facial pain) Treatments prior to arrival: none Related Data Home Medications Medication Instructions Recorded Confirmed buspirone 7.5 mg tablet 7.5 mg PO BID 11/20/22 02/19/23 clonidine HCl 0.1 mg tablet 0.1 mg PO TID PRN anxiety 11/20/22 02/19/23 prazosin 1 mg capsule 1 mg PO BID 11/20/22 02/19/23 Previous Rx's Medication Instructions Recorded lamotrigine 100 mg tablet 100 mg PO DAILY #30 tabs 09/27/22 lamotrigine 25 mg tablet 50 mg (2 x 25 mg) PO DAILY 14 days 09/27/22 #28 tabs albuterol sulfate 90 mcg/actuation 2 puff inhalation Q6H PRN 02/19/23 aerosol inhaler (Ventolin HFA) shortness of breath or wheezing 30 days #8.5 grams cholecalciferol (vitamin D3) 50 50 mcg PO DAILY 90 days #90 caps 02/19/23 mcg (2,000 unit) capsule metformin 500 mg tablet 500 mg PO BID 30 days #60 tabs 02/19/23 zolpidem 10 mg tablet (Ambien) 10 mg PO BEDTIME PRN insomnia 30 02/19/23 days #30 tabs fluticasone propionate 115 2 puff inhalation BID #12 grams 04/08/23 mcg-salmeterol 21 mcg/actuation HFA inhaler (Advair HFA) tizanidine 2 mg tablet 2 mg PO Q8H PRN muscle spasms 30 04/10/23 days #90 tabs Allergies Allergy/AdvReac Type Severity Reaction Status Date / Time acetaminophen [From PERCOCET] Allergy Severe HIVES Verified 04/20/23 10:13 oxycodone [From PERCOCET] Allergy Severe HIVES Verified 04/20/23 10:13 codeine [CODEINE] Allergy Unknown HIVES Verified 04/20/23 10:13 guaifenesin AdvReac Unknown HEART RACES Verified 04/20/23 10:13 [From ROBITUSSIN CHEST CONGESTION] Codeine Phosphate Allergy Unknown Hives Uncoded 04/20/23 10:13 Pt states no food allergies Allergy Unknown Unknown Uncoded 04/20/23 10:13 Robitussin Chest Congestion Allergy Unknown Hives Uncoded 04/20/23 10:13 Review of Systems 2 Review of Systems: Constitutional : No Fever, No Chills, No Fatigue ENT/Mouth : No sore throat, No Rhinorrhea, pos nasal congestion Eyes: pos Eye Pain, No Swelling, No Redness Cardiovascular : No Chest Pain, No SOB, No Dyspnea on Exertion Respiratory : No Cough, No Sputum Gastrointestinal : pos Nausea, No Vomiting, No Diarrhea, No abdominal Pain Genitourinary : No Dysuria, No Urinary Frequency, No Hematuria, Musculoskeletal : No joint pain, No Myalgias, No Joint Swelling Skin : No Skin Lesions, No rash Neuro : No Weakness, No Numbness, No Dizziness, positive Headache Psych : No Anxiety/Panic, No Depression Heme/Lymph: No Bruising, No Bleeding,No Lymphadenopathy Endocrine : No Polyuria, No Polydipsia All other systems reviewed and are negative [facility] Past Medical History Attestation statement: The following information was validated with the patient. Source: old records reviewed Medical History Vitamin D deficiency Diabetes mellitus Obesity (BMI 30-39.9) Osteoarthritis Degenerative disc disease, cervical Thoracic spondylosis Impaired glucose metabolism Thoracic back pain Right leg paresthesias Migraines Obesity GERD without esophagitis Depression Anxiety Insomnia Surgical History History of renal stent History of lumpectomy of right breast Social History (Reviewed 11/26/23 @ 11:16 by KESHA Lechuga Household Members: Other Household Members Other:: 22 yr old daughter Housing: Apartment Alcohol intake: never Patient Tobacco Use Status: Never used Tobacco Tobacco use type: Cigarette e-Cigarette/Vaping Use: Never Used Second Hand Smoke Exposure: Yes Substance Use Type: Marijuana Advance Directives: No Advance Directives Information Provided: No Patient : No service: No Current occupational status: employed 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 Oriented X3. No acute distress. Eyes: Pupils equal, round and reactive to light. ENT: Pharynx normal. Neck: Normal inspection. Neck supple. no meningeal signs CVS: Normal heart rate and rhythm. Pulses normal. Respiratory: No respiratory distress. Breath sounds normal. Abdomen: Soft and non-tender. Skin: Skin warm and dry. Normal skin color. Normal skin turgor. Extremities: No lower extremity edema. No calf ttp Neuro: Oriented X 3. No motor deficit. No sensory deficit. Medications Administered Discontinued Medications Generic Name Dose Route Start Last Admin Trade Name Freq PRN Reason Stop Dose Admin Diphenhydramine HCl 25 mg 04/20/23 10:55 04/20/23 11:03 Diphenhydramine Hcl 50 Mg/Ml Vial IVPUSH 04/20/23 10:56 25 mg ONCE ONE Administration Sodium Chloride 1,000 mls @ 999 mls/hr 04/20/23 11:00 04/20/23 11:03 Ns IV 04/20/23 12:00 999 mls/hr .Q1H1M SIDRA Administration Ketorolac Tromethamine 15 mg 04/20/23 10:55 04/20/23 11:03 Ketorolac Tromethamine 15 Mg/Ml Vial IVPUSH 04/20/23 10:56 15 mg ONCE ONE Administration Metoclopramide HCl 10 mg 04/20/23 10:55 04/20/23 11:03 Metoclopramide Hcl 10 Mg/2 Ml Vial IVPUSH 04/20/23 10:56 10 mg ONCE ONE Administration Medical Decision Making Medical Decision Making [facility] Narrative: 42 yo female with PMH of migraines, DM, bipolar disorder, anxiety now with c/o gradual onset headache but not on thinners no meningeal signs no fevers, not on thinners - doubt [employer] infection, gradual onset hx of headaches in past doubt SAH. At this time could be viral infection, sinusitis or migraine headache - viral panel, supportive medications ordered. Differential Diagnosis Differential Diagnoses: The differential diagnosis associated with the presentation includes migraine headache, viral panel, sinusitis Admission/Observation Consideration of admission/observation: Escalation of care including admission/observation considered feels much better stable for DC Lab Data [facility] Lab Attestation statement: I reviewed the patient's lab results. 04/20/23 10:23 04/20/23 10:23 Labs: Lab Results 04/20/23 Range/Units 10:23 WBC 10.7 (4.8-10.8) X10*3/uL RBC 5.05 (4.20-5.50) X10*6/uL Hgb 15.3 (12.0-16.0) g/dl Hct 45.8 (37.0-47.0) % MCV 90.7 (80.0-98.0) fL MCH 30.3 (27.0-33.0) pg MCHC 33.4 (31.0-35.0) g/dl RDW 12.4 (11.0-16.0) % Plt Count 321 (160-400) X10*3/uL MPV 8.5 L (9.4-12.3) fL Absolute Nucleated RBC 0.000 (0.0-0.012) X10*3/uL Nucleated RBC % (auto) 0.0 (0.0-0.2) /100WBC Sodium 140 (135-145) mmol/L Potassium 4.0 (3.3-5.1) mmol/L Chloride 106 (96-108) mmol/L Carbon Dioxide 25 (22-29) mmol/L Anion Gap 13 (12-20) BUN 8 L (9-16) mg/dL Creatinine 0.82 (0.5-1.4) mg/dL Estim Creat Clear Calc 97.2 Estimated GFR > 60 Random Glucose 126 H (60-115) mg/dL Calcium 9.7 (8.4-10.2) mg/dL Total Bilirubin 0.6 (0.0-1.0) mg/dL AST 19 (5-31) U/L ALT 37 H (0-31) U/L Alkaline Phosphatase 58 (39-117) U/L Total Protein 7.8 (6.5-8.0) g/dL Albumin 4.6 (3.5-5.0) g/dL Influenza Type A (PCR) NEGATIVE (Negative) Influenza Type B (PCR) NEGATIVE (Negative) RSV RNA Qual (PCR) NEGATIVE (Negative) SARS-CoV-2 RNA (RT-PCR) NEGATIVE (Negative) External Record Review External record reviewed: Inpatient record Prescription Management no fevers, no sig congestion will hold off oral antibiotics did discuss with patient Discharge Plan Discharge Clinical Impression: Viral syndrome Headache, migraine Qualifiers: Migraine type: unspecified Status migrainosus presence: without status migrainosus Intractability: not intractable Qualified Code(s): G43.909 - Migraine, unspecified, not intractable, without status migrainosus Patient Disposition: Home, Self-Care Instructions: Migraine Headache (ED), Viral Syndrome (ED) Additional Instructions: return for worsening pain, fevers, confusion, numbness, weakness or any other concerns. negative for flu and covid Prescriptions: No Action fluticasone propion-salmeterol [Advair HFA] 115-21 mcg/actuation HFA aerosol inhaler 2 puff inhalation BID Qty: 12 2RF tizanidine 2 mg tablet 2 mg PO Q8H PRN (Reason: muscle spasms) 30 Days Qty: 90 2RF lamotrigine 25 mg tablet 50 mg PO DAILY 14 Days Qty: 28 0RF Rx Instructions: After completion of lamotrigine 25mg daily for 14 days, start taking lamotrigine 50mg (2 tabs) for 14 days. lamotrigine 100 mg tablet 100 mg PO DAILY Qty: 30 0RF Rx Instructions: After completion of lamotrigine 50mg daily for 14 days, start lamotrigine 100mg daily. prazosin 1 mg capsule 1 mg PO BID buspirone 7.5 mg tablet 7.5 mg PO BID clonidine HCl 0.1 mg tablet 0.1 mg PO TID PRN (Reason: anxiety) Rx Instructions: Take one tab 3 times daily for anxiety. Hold for BP under 90/60 metformin 500 mg tablet 500 mg PO BID 30 Days Qty: 60 3RF albuterol sulfate [Ventolin HFA] 90 mcg/actuation HFA aerosol inhaler 2 puff inhalation Q6H PRN (Reason: shortness of breath or wheezing) 30 Days Qty: 8.5 5RF zolpidem [Ambien] 10 mg tablet 10 mg PO BEDTIME PRN (Reason: insomnia) 30 Days Qty: 30 2RF Rx Instructions: #14 due to pts insurance - may partially fill cholecalciferol (vitamin D3) 50 mcg (2,000 unit) capsule 50 mcg PO DAILY 90 Days Qty: 90 3RF Stand Alone Forms: Work/School Release
[2023-04-20 10:46] LABS: Alanine Aminotransferase 37 U/L (0-31); Albumin Level 4.6 g/dL (3.5-5.0); Alkaline Phosphatase 58 U/L (39-117); Anion Gap 13 (12-20); Aspartate Amino Transferase 19 U/L (5-31); Bilirubin Total 0.6 mg/dL (0.0-1.0); Blood Urea Nitrogen 8 mg/dL (9-16); Calcium 9.7 mg/dL (8.4-10.2); Carbon Dioxide 25 mmol/L (22-29); Chloride 106 mmol/L (96-108); Creatinine Clr Calc Pharmacy 97.2; Estimated Glomerular Filt Rate > 60; Glucose Random 126 mg/dL (60-115); Sodium 140 mmol/L (135-145); Total Protein 7.8 g/dL (6.5-8.0)
[2023-04-20] MEDS: 0.9 % Sodium Chloride 1,000 ML 999 ML IV (11:03)
[2023-04-20] MEDS: Metoclopramide HCl 10 MG/2 ML VIAL IVPUSH (11:03)
[2023-04-20] MEDS: diphenhydrAMINE HCL 50 MG/ML VIAL 25 MG IVPUSH (11:03)
[2023-04-20] MEDS: Ketorolac Tromethamine 15 MG/ML VIAL IVPUSH (11:03)
[2023-04-20 11:13] LABS: Influenza A PCR NEGATIVE (Negative); Influenza B PCR NEGATIVE (Negative); Resp Syncy Virus RNA Qual PCR NEGATIVE (Negative); SARS COV2 PCR INHOUSE NEGATIVE (Negative)
== END 2023-04-20 12:46 | disposition home or self-care (01) ==
PROVIDERS: Emergency Provider Emergency Medicine; PCP Internal Medicine
DX: B34.9 Viral infection, unspecified (principal); G43.909 Migraine, unspecified, not intractable, without status migrainosus; R11.2 Nausea with vomiting, unspecified; H53.143 Visual discomfort, bilateral; Z20.822 Contact with and (suspected) exposure to COVID-19; Z20.828 Contact with and (suspected) exposure to other viral communicable diseases; Z79.899 Other long term (current) drug therapy
CPT/HCPCS: 0241U; 36415; 80053; 85027; 96361; 96374; 96375; 99284; J1200; J1885; J2765

== ENCOUNTER 2023-05-15 10:44 | Outpatient (AMB) | payer BC, OTHER, SELFPAY ==
[2023-05-15 10:45] VITALS: BP 122/86; PULSE 84; O2SAT 98; BMI 34.2
--- NOTE | 2023-05-15 10:45 | MHC.OFFVIS ---
Intake Vital Signs 05/15/23 10:45 Height 5 ft 4 in Weight 199 lb 8.293 oz BMI 34.2 BP 122/86 Blood Pressure Location Rt brachial Position Sitting Pulse 84 Pulse Source Doppler Pulse Oximetry (%) 98 Oxygen Delivery Method Room Air Intake Visit Reasons: dyspnea Allergies acetaminophen [From PERCOCET] Allergy (Severe, Verified 05/15/23 10:48) HIVES oxycodone [From PERCOCET] Allergy (Severe, Verified 05/15/23 10:48) HIVES codeine [CODEINE] Allergy (Unknown, Verified 05/15/23 10:48) HIVES guaifenesin [From ROBITUSSIN CHEST CONGESTION] Adverse Reaction (Unknown, Verified 05/15/23 10:48) HEART RACES Codeine Phosphate Allergy (Unknown, Uncoded 04/20/23 10:13) Hives Pt states no food allergies Allergy (Unknown, Uncoded 04/20/23 10:13) Unknown Robitussin Chest Congestion Allergy (Unknown, Uncoded 04/20/23 10:13) Hives HPI dyspnea HPI Details 42-year-old lady, nonsmoker, referred for evaluation of dyspnea on exertion. Patient states that she gets dyspnea when walking on level ground after several 100 yd, and also with significant dyspnea when going up hill climbing stairs. Furthermore patient complains of orthopnea and paroxysmal nocturnal dyspnea symptoms. However, she denies lower extremity edema. 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 She has no family history of lung disease. Patient does have a cat as a pet. [facility] Medical History Vitamin D deficiency Diabetes mellitus Obesity (BMI 30-39.9) Osteoarthritis Degenerative disc disease, cervical Thoracic spondylosis Impaired glucose metabolism Thoracic back pain Right leg paresthesias Migraines Obesity GERD without esophagitis Depression Anxiety Insomnia Surgical History History of renal stent History of lumpectomy of right breast Social History Household Members: Other Household Members Other:: 22 yr old daughter Housing: Apartment Alcohol intake: never Patient Tobacco Use Status: Never used Tobacco Tobacco use type: Cigarette e-Cigarette/Vaping Use: Never Used Second Hand Smoke Exposure: Yes Substance Use Type: Marijuana service: No Current occupational status: employed 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 Current occupational exposures/hazards: No Cognitive needs: No Hearing needs: No Vision needs: No Review of Systems Const Denies daytime sleepiness, Denies excessive sweating, Denies fatigue, Denies fever(s), Denies lethargy, Denies malaise, Denies night sweats, Denies snoring and Denies weight loss Eyes Denies blurry vision and Denies itchy eyes ENT Denies nasal congestion, Denies post nasal drip, Denies sinus pain, Denies sinus pressure and Denies other ( Thrush) Card Denies chest pain, Denies pedal edema, Denies dyspnea, Reports dyspnea on exertion, Reports orthopnea and Denies paroxysmal nocturnal dyspnea Resp Denies cough, Denies hemoptysis, Denies excessive phlegm production, Denies dyspnea, Reports dyspnea on exertion, Denies snoring and Denies wheezing GI Denies abdominal pain and Denies heartburn Musc Denies myalgias, Denies arthralgias and Denies joint swelling Skin/Breast Denies rash Neuro Denies memory loss and Denies seizure-like activity Psych Denies abnormal sleep pattern, Denies anxiety and Denies memory loss Endo Denies excessive sweating, Denies fatigue and Denies heat intolerance Harvey/Lymph Denies easy bruising Aller/Immun Denies itchy eyes, Denies seasonal rhinorrhea and Denies wheezing Physical Exam Vital Signs: Last Vital Signs Pulse 84 05/15/23 10:45 BP 122/86 05/15/23 10:45 Pulse Ox 98 05/15/23 10:45 Oxygen Delivery Method Room Air 05/15/23 10:45 BMI result Body Mass Index 34.2 Const General: no acute distress and alert Nutritional Appearance: not obese Orientation/consciousness: Other orientation findings ( oriented) HEENT Head: Yes atraumatic Eyes General: appearance normal, both eyes and all related structures Sclerae: sclerae normal EOM: EOMs intact bilaterally Neck Neck: Yes supple Lymphatic: no lymphadenopathy noted Resp Effort & Inspection: normal respiratory effort and no use of accessory muscles Auscultation: clear to auscultation bilaterally Cardio Rate: regular rate Rhythm: regular rhythm Heart sounds: no gallops, no murmurs and no rubs Skin General skin exam: other ( warm) Extrem General: No clubbing, No cyanosis and No edema Assessment & Plan Assessment & Plan (1) Dyspnea: Code(s): R06.00 - Dyspnea, unspecified Qualifiers: Dyspnea type: unspecified Qualified Code(s): R06.00 - Dyspnea, unspecified Plan: Unclear etiology, may have pulmonary and/or cardiac component. Will obtain 2D echocardiogram to evaluate cardiac contribution. (2) ILD (interstitial lung disease): Code(s): J84.9 - Interstitial pulmonary disease, unspecified Plan: Results for function test reviewed, underlying mild restrictive physiology with decreased diffusion capacity, concern for an early ILD, will obtain CT chest. Orders: Orders CA echo transthoracic complete Today R06.00 - Dyspnea, unspecified CT chest wo IV con Today J84.9 - Interstitial pulmonary disease, unspecified Medications: New fluticasone propion-salmeterol 115-21 mcg/actuation (Advair HFA) administer with spacer 2 puffs inhalation BID 1 ea 6RF 30 days Coding Level of Care Code New Pt Level 4 (49757) Diagnoses Dyspnea, unspecified type R06.00 Dyspnea type: unspecified ILD (interstitial lung disease) J84.9
== END 2023-05-15 11:03 | disposition home or self-care (01) ==
PROVIDERS: PCP Internal Medicine; Referring Provider Internal Medicine; Visit Provider Internal Medicine Pulmonary Disease
DX: R06.00 Dyspnea, unspecified (principal); J84.9 Interstitial pulmonary disease, unspecified
CPT/HCPCS: 99204

== ENCOUNTER → 2023-05-15 10:44 | Outpatient (BNVA) | payer BC, OTHER, SELFPAY | PROVIDERS: PCP Internal Medicine; Referring Provider Internal Medicine; Visit Provider Internal Medicine Pulmonary Disease ==

== ENCOUNTER → 2023-06-25 10:59 | Outpatient (REF) | payer BC, SELFPAY ==
--- NOTE | 2023-06-25 11:02 | CA_ITS ---
Transthoracic Echocardiogram Patient (Last, First, Middle): Misti Cornell I Gender: Female Date of : 1980 Age: 42 Procedure Date: 06/25/2023 Procedure Type: Transthoracic Echocardiogram Location: OP Height: 162.56 cm Weight: 90.27 kg BSA: 1.95 m2 Heart Rate: bpm BP: 126 / 86 mmHg Steam Station Supervisor: MARLEN Referring MD: Obdulio Steward MD Raspberry Checker: Odell Ruiz MD Symptoms: R06.00 - Dyspnea, unspecified Study Quality: Adequate ECG Rhythm: Sinus Conclusions: - 1. Normal LV systolic function with grade 1 diastolic dysfunction 2. Normal cardiac valvular Doppler 3. No gross pericardial effusion Findings Left Ventricle Normal left ventricular size, thickness, and systolic function. The visually estimated ejection fraction is between 65-70%. Spectral Doppler is indicative of an impaired relaxation filling pattern. E/E prime ratio is <8, consistent with normal filling pressures. Peak GLS is -19.7%, which is within normal limits. Right Ventricle Normal right ventricular cavity size and systolic function. Atria Both atria are normal in size. There is no evidence of interatrial shunt. Aortic Valve Normal aortic valve structure and function. There is no aortic valve stenosis. There is no aortic valve regurgitation. Mitral Valve Normal mitral valve structure and function. There is trace mitral valve regurgitation. There is no mitral valve stenosis. Pulmonic Valve The pulmonic valve is likely normal. There is trace pulmonic valve regurgitation. Tricuspid Valve Normal tricuspid valve structure. Tricuspid regurgitation envelope is inadequate for calculation of right ventricular systolic pressure. Normal right atrial pressure. Great Vessels All visible segments of the aorta are normal in size. The pulmonary artery was not well visualized. There is no dilatation of the sinuses of Valsalva. Venous The inferior vena cava is normal in size and collapses greater than 50% with inspiration. Pericardium/Pleural There is no evidence of pericardial effusion. Prior Study Comparison No prior study available for comparison. Measurements 2D Linear Measurements IVSd: 0.99 0.6-0.9/0.6-1.0 cm LVIDd: 4.37 3.9-5.3/4.2-5.9 cm LVIDd Index: 2.24 2.4-3.2/2.2-3.1 cm/m2 LVIDs: 2.70 2.0-3.6 cm LVPWd: 0.97 0.7-1.1 cm LA Diam: 3.40 2.7-3.8/3.0-4.0 cm LAIDs Index: 1.74 1.5-2.3 cm/m2 LV Mass: 177.87 67-162/88-224 g LV Mass Index: 91.21 43-95/49-115 g/m2 LVOT Diam: 1.90 3.0+(-)1.3 cm 2D Systolic Function EF 4C: 66.00 >55% EF 2C: 66.30 >55% EF BiP: 67.00 >55% Mitral Valve MV Pk E: 0.67 MV PK A: 0.83 MV Decel Time: 242.00 E/A: 0.80 E'Lateral: 7.40 E'Medial: 5.11 E/E' Med: 13.20 E/E' Lat: 9.10 PHT: 71.00 MVA PHT: 3.10 Decel Pinal: 2.78 Aortic Valve AoV Pk Harley: 1.40 AoV Mn Harley: 0.97 AoV VTI: 0.30 AoV Pk Grad: 8.00 Aov Mn Grad: 4.00 HECTOR Cont.VTI: 1.81 LVOT LVOT Pk Harley: 0.89 LVOT Mn Harley: 0.61 LVOT VTI: 0.19 LVOT Pk Grad: 3.00 LVOT Mn Grad: 2.00 LVOT Diam: 1.90 LVOT Area: 2.84 Diastolic Function MV Pk E: 0.67 MV Pk A: 0.83 E/A: 0.80 E'Medial: 5.11 E/E' Med: 13.20 E' Laterial: 7.40 E/E' Lat: 9.10 Right Ventricle TAPSE (mm): 18.20 TVS' Harley: 10.20 Tricuspid Valve RA Press: 3.00 Great Vessels Aorta Sinus of Valsalva: 3.03 2.0-3.[address] Ridge: 2.43 1.7-3.4 cm Ao Asc: 3.30 2.1-3.4 cm Ao Arch: 2.60 Updated in Other Vendor System with Status of Final Odell Ruiz MD electronically signed on 06/27/2023 8:51:13 AM with status of Final
== END ==
LOC: HO.CARD 10:59
PROVIDERS: PCP Internal Medicine; Visit Provider Internal Medicine Pulmonary Disease
DX: R06.00 Dyspnea, unspecified (principal)
CPT/HCPCS: 93306; 93356

== ENCOUNTER → 2023-06-25 11:02 | Outpatient (BNV) | payer BC, SELFPAY | PROVIDERS: PCP Internal Medicine; Visit Provider Internal Medicine Cardiovascular Disease | DX: R06.02 Shortness of breath (principal) | CPT/HCPCS: 93306 ==

== ENCOUNTER 2023-07-30 10:03 | Outpatient (AMB) | payer BC, MEDICAID, SELFPAY ==
[2023-07-30 10:08] VITALS: BP 120/80; PULSE 99; O2SAT 99; BMI 33.8
--- NOTE | 2023-07-30 10:08 | MHC.PC.OV ---
Vital Signs 07/30/23 10:08 Height 5 ft 4 in Weight 197 lb BMI 33.8 BP 120/80 Blood Pressure Location Lt brachial Position Sitting Pulse 99 Pulse Source Pulse Oximeter Pulse Oximetry (%) 99 Oxygen Delivery Method Room Air Intake Visit Reasons: follow up Stopper Maker Required: No Accompanied by: Self / Same As Patient Allergies acetaminophen [From PERCOCET] Allergy (Severe, Verified 07/30/23 10:49) HIVES oxycodone [From PERCOCET] Allergy (Severe, Verified 07/30/23 10:49) HIVES codeine [CODEINE] Allergy (Unknown, Verified 07/30/23 10:49) HIVES guaifenesin [From ROBITUSSIN CHEST CONGESTION] Adverse Reaction (Unknown, Verified 07/30/23 10:49) HEART RACES Codeine Phosphate Allergy (Unknown, Uncoded 07/30/23 10:49) Hives Pt states no food allergies Allergy (Unknown, Uncoded 07/30/23 10:49) Unknown Robitussin Chest Congestion Allergy (Unknown, Uncoded 07/30/23 10:49) Hives Medication List - Last Reconciled 07/30/23 by Rikki Stearns MD albuterol sulfate 90 mcg/actuation (Ventolin HFA) 2 puffs inhalation Q6H PRN 30 days clonidine HCl 0.1 mg PO Q6H PRN fluticasone propion-salmeterol 115-21 mcg/actuation (Advair HFA) 2 puffs inhalation BID 30 days lamotrigine 200 mg PO DAILY metformin 500 mg PO BID 30 days tizanidine 2 mg PO Q8H PRN 30 days zolpidem (Ambien) 10 mg PO BEDTIME PRN 30 days Tobacco use date assessed: 07/30/23 Dental Screening Dental Screen Date: 07/30/23 Did you have a dental visit in the last 12 months?: No Did you have a dental problem in the last 6 months where you did not have access to dental care?: No Was dental information given to patient?: No HPI follow up HPI Details Patient comes in today for her follow up visit States that she feels okay Is still experiencing increased anxiety and depression - states that psychiatry recently adjusted some of her medications and she is starting to feel some improvement of her symptoms She denies any headaches or dizziness Denies any chest pains, no increased SOB No nausea/vomiting, no abdominal pain No change in bowel habits noted She has not yet gotten her previously ordered follow up labs done yet - states that she will try to get them done [facility] Medical History Vitamin D deficiency Diabetes mellitus Obesity (BMI 30-39.9) Osteoarthritis Degenerative disc disease, cervical Thoracic spondylosis Impaired glucose metabolism Thoracic back pain Right leg paresthesias Migraines Obesity GERD without esophagitis Depression Anxiety Insomnia Surgical History History of renal stent History of lumpectomy of right breast Social History Household Members: Other Household Members Other:: 22 yr old daughter Housing: Apartment Alcohol intake: never Patient Tobacco Use Status: Never used Tobacco Tobacco use type: Cigarette e-Cigarette/Vaping Use: Never Used Second Hand Smoke Exposure: Yes Substance Use Type: Marijuana service: No Current occupational status: employed 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 1. Little interest or pleasure in doing things: nearly every day 2. Feeling down, depressed, or hopeless: nearly every day 3. Trouble falling or staying asleep, or sleeping too much: nearly every day 4. Feeling tired or having little energy: nearly every day 5. Poor appetite or overeating: nearly every day 6. Feeling bad about yourself - or that you are a failure or have let yourself or your family down: nearly every day 7. Trouble concentrating on things, such as reading the newspaper or watching television: nearly every day 8. Moving or speaking so slowly that other people could have noticed. Or the opposite - being so fidgety or restless that you have been moving around a lot more than usual: nearly every day 9. Thoughts that you would be better off or of hurting yourself in some way: not at all Total score: 24 Depression Screening Interpretation: Positive Depression Screening Follow-up: Existing condition and In treatment Depression Screening Done: Yes 38660 - PHQ-9 Billing: Yes Source: Developed by Drs. Misha Rock, James Guy and colleagues, with an educational irene from [email or web address]. Thrive Questionnaire Date Thrive assessed: 07/30/23 I am a: Patient What is your living situation today?: I have a steady place to live Within the past 12 months, did the food you bought not last and you didn't have the money to get more?: Never true Within the past 12 months, did you worry whether your food would run out before you got money to buy more?: Never true Do you have trouble paying for medicines?: No Do you have trouble getting transportation to medical appointments?: No Do you have trouble paying your heating and electricity bill?: No Do you have trouble taking care of your child, family member or friend?: No Do you have trouble with day-to-day activities such as bathing, preparing meals, shopping, managing finances, etc.?: No Are you currently unemployed and looking for a job?: No Are you interested in more education?: No Please select the resources that you would like help with: None Currently or been in a relationship where the following occur: no concerns reported THRIVE Score: 0 AUDIT C Alcohol Use Questionnaire (AUDIT-C) 1. How often do you have a drink containing alcohol?: Never 3. How often do you have six or more drinks on one occasion?: Never Total Score: 0 Score Reviewed/Action Taken: Yes ELLEN-7 AMB Questionnaire ELLEN-7 Date ELLEN - 7 assessed: 07/30/23 Feeling nervous, anxious, or on edge: 0 = Not at all Not being able to stop or control worryin = Not at all Worrying too much about different things: 0 = Not at all Trouble relaxin = Not at all Being so restless that it is hard to sit still: 0 = Not at all Becoming easily annoyed or irritable: 0 = Not at all Feeling afraid as if something awful might happen: 0 = Not at all Total ELLEN-7 score (0-4 normal; 5-9 mild; 10-14 moderate; 15-21 severe): 0 Source: Developed by Linda Love Kurt Kroenke and colleagues, with an educational irene from [email or web address]. Review of Systems Const Denies chills, Reports difficulty sleeping, Reports fatigue, Denies fever(s) and Denies headache(s) ENT Denies dysphagia, Denies dizziness, Denies otalgia, Denies headache(s), Denies neck pain, Denies odynophagia and Denies sore throat Card Denies chest pain, Denies palpitations and Reports dyspnea on exertion (frequent) Resp Denies chest congestion, Denies cough, Denies pain on inspiration and Reports dyspnea on exertion (frequent) GI Denies abdominal pain, Denies constipation, Denies dysphagia, Denies heartburn, Denies diarrhea, Denies nausea, Denies odynophagia and Denies vomiting Denies difficulty voiding, Denies nocturia, Denies dysuria and Denies urinary urgency Musc Denies neck pain Skin/Breast Denies rash Neuro Denies dizziness and Denies headache(s) Psych Reports anxiety and Reports depression Endo Reports fatigue and Denies palpitations Physical exam (Primary Care) Vital Signs: Last Vital Signs Pulse 99 07/30/23 10:08 BP 120/80 07/30/23 10:08 Pulse Ox 99 07/30/23 10:08 Oxygen Delivery Method Room Air 07/30/23 10:08 BMI result Body Mass Index 33.8 Tobacco/Smoking Status: Tobacco use Status Tobacco use date assessed 07/30/23 07/30/23 10:11 Patient Tobacco Use Status Never used Tobacco 07/30/23 10:11 Tobacco use type Cigarette 07/30/23 10:11 e-Cigarette/Vaping Use Never Used 07/30/23 10:11 PHQ-9: PHQ-9 Score PHQ-9: Total score 08/16/23 00:31 Depression Screening Interpretation: Positive Depression Screening Follow-up: Existing condition and In treatment Thrive Assessment: Date of Thrive Assessment Date Thrive assessed 07/30/23 07/30/23 10:11 Currently or been in a relationship where the following occur: no concerns reported Const General: no acute distress and alert HENMT Ears: TM's normal bilaterally and EAC's normal Throat: Yes posterior oropharynx normal and Yes tonsils normal (no TP congestion) Neck Neck: Yes no lymphadenopathy and Yes supple Resp Auscultation: no crackles, no rales, no wheezes and diminished lung sounds bilateral Cardio Rate: regular rate Rhythm: regular rhythm Heart sounds: no murmurs GI Palpation (GI): Soft to palpation, nontender and No hepatosplenomegaly present Skin General skin exam: no rashes or lesions noted Extrem General: Yes no clubbing, cyanosis or edema Assessment and Plan Assessment & Plan (1) Diabetes mellitus: Code(s): E11.9 - Type 2 diabetes mellitus without complications Qualifiers: Diabetes mellitus type: type 2 Diabetes mellitus longterm insulin use: without superintendent [employer] use Diabetes mellitus complication status: with hyperglycemia Qualified Code(s): E11.65 - Type 2 diabetes mellitus with hyperglycemia Plan: In-office HgbA1c was at 6.8% when last checked a few months ago - goal is at least <7.0% She has not yet gotten her follow up labs done and is encouraged to try to get them done DARIUS Reinforced diabetic diet Continue Metformin 500 mg BID for now Will have her recheck her labs again in 3 months for follow up (2) Dyspnea: Code(s): R06.00 - Dyspnea, unspecified Qualifiers: Dyspnea type: unspecified Qualified Code(s): R06.00 - Dyspnea, unspecified Plan: Patient continues to report experiencing SOB often, 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 where even minimal exertional activities tend to trigger bouts/fits of coughing Her physical exam continues to reveal (+) tight breath sounds bilaterally Chest x-rays done a few months ago came out normal PFTs done in March 2023 revealed findings of mild restrictive lung disease with decreased diffusion capacity, which raises concerns for possible interstitial disease She was seen by pulmonary and send for chest CT for further evaluation - this was scheduled for last month but it looks like patient did not get this done - she is encouraged to reach out to radiology to get this rescheduled DARIUS Continue Albuterol HFA 1 to 2 inhalations every 6 hours PRN for now Follow up with pulmonary as scheduled (3) Migraines: Code(s): G43.909 - Migraine, unspecified, not intractable, without status migrainosus Qualifiers: Migraine type: unspecified Status migrainosus presence: without status migrainosus Intractability: not intractable Qualified Code(s): G43.909 - Migraine, unspecified, not intractable, without status migrainosus Plan: Reinforced avoidance of all potential migraine triggers May continue taking OTC headache meds PRN for now (4) Vitamin D deficiency: Code(s): E55.9 - Vitamin D deficiency, unspecified Plan: Continue Vitamin D3 2000 units QD (5) Degenerative disc disease, cervical: Comment: mild degenerative disc disease C3-C4 throughout C5-C6 Code(s): M50.30 - Other cervical disc degeneration, unspecified cervical region Plan: Continue OTC Ibuprofen PRN (6) Thoracic spondylosis: Code(s): M47.814 - Spondylosis without myelopathy or radiculopathy, thoracic region Plan: Continue Tizanidine 2 mg Q HS PRN (7) Insomnia: Code(s): G47.00 - Insomnia, unspecified Qualifiers: Insomnia type: unspecified Qualified Code(s): G47.00 - Insomnia, unspecified Plan: Sleep hygiene reinforced Continue Zolpidem 10 mg Q HS (8) Generalized anxiety disorder: Code(s): F41.1 - Generalized anxiety disorder Plan: Continue Clonidine 0.1 mg TID and Buspirone 7.5 mg BID Follow up with psychiatry as scheduled (9) PTSD (post-traumatic stress disorder): Code(s): F43.10 - Post-traumatic stress disorder, unspecified Plan: Continue Prazosin 1 mg BID Follow up with psychiatry as scheduled (10) Bipolar 2 disorder: Code(s): F31.81 - Bipolar II disorder Plan: Continue Prazosin 1 mg BID; will try increasing her Lamotrigine to 200 mg BID but she is encouraged to also speak to psychiatry about this as I would prefer to leave the management of her bipolar disorder and mood disorder up to psychiatry Follow up with psychiatry as scheduled (11) Obesity (BMI 30-39.9): Code(s): E66.9 - Obesity, unspecified Plan: Reinforced diet/exercise as tolerated/lose weight Plan Follow up in 3 months Orders: Orders Hemoglobin A1c 3 Months E11.9 - Type 2 diabetes mellitus without complications TSH reflex Free T4 3 Months E78.00 - Pure hypercholesterolemia, unspecified UA CC w/rflx Micro + Cult 3 Months R30.0 - Dysuria Complete Blood Count Auto Diff 3 Months D64.9 - Anemia, unspecified Comprehensive [place]. Panel Fast 3 Months E78.00 - Pure hypercholesterolemia, unspecified Lipid Panel 3 Months E78.00 - Pure hypercholesterolemia, unspecified Microalbumin, Random (w Creat) 3 Months E11.9 - Type 2 diabetes mellitus without complications Vitamin D 25-OH Total 3 Months E55.9 - Vitamin D deficiency, unspecified Medications: Changed From lamotrigine After completion of lamotrigine 50mg daily for 14 days, start lamotrigine 100mg daily. 100 mg PO DAILY 30 tabs 0RF To lamotrigine After completion of lamotrigine 50mg daily for 14 days, start lamotrigine 100mg daily. 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 Diabetes mellitus complication status: with hyperglycemia Dyspnea, unspecified type R06.00 Dyspnea type: unspecified Migraine without status migrainosus, not intractable, unspecified migraine type G43.909 Migraine type: unspecified Status migrainosus presence: without status migrainosus Intractability: not intractable Vitamin D deficiency E55.9 Degenerative disc disease, cervical M50.30 Thoracic spondylosis M47.814 Insomnia, unspecified type G47.00 Insomnia type: unspecified Generalized anxiety disorder F41.1 PTSD (post-traumatic stress disorder) F43.10 Bipolar 2 disorder F31.81 Obesity (BMI 30-39.9) E66.9
== END 2023-07-30 10:56 | disposition home or self-care (01) ==
PROVIDERS: PCP Internal Medicine; Visit Provider Internal Medicine
DX: E11.65 Type 2 diabetes mellitus with hyperglycemia (principal); F31.81 Bipolar II disorder; R06.00 Dyspnea, unspecified; G43.909 Migraine, unspecified, not intractable, without status migrainosus; E55.9 Vitamin D deficiency, unspecified; M50.30 Other cervical disc degeneration, unspecified cervical region; M47.814 Spondylosis without myelopathy or radiculopathy, thoracic region; G47.00 Insomnia, unspecified; F41.1 Generalized anxiety disorder; F43.10 Post-traumatic stress disorder, unspecified; E66.9 Obesity, unspecified
CPT/HCPCS: 99214

== ENCOUNTER 2023-08-18 05:57 | Emergency (ER) | payer MEDICAID, SELFPAY ==
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
[2023-08-18 05:58] VITALS: BP 153/93; PULSE 98; RESP 18; TEMP 36.8; O2SAT 99; BMI 32.1
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
[2023-08-18 07:39] LABS: Glucose, Whole Blood 104 mg/dL (60-115)
[2023-08-18] MEDS: Albuterol Sulfate 90 MCG 8 GM INHALER 2 PUFF INHALE (07:39)
--- NOTE | 2023-08-18 07:40 | PC.NURSE ---
patient ambulated to room independently, speaking in full clear sentences. medicated per the MAR. no obvious signs/symptoms of distress noted at this time, call gordillo within reach
[2023-08-18 08:05] VITALS: BP 145/94; PULSE 83; RESP 18; TEMP 36.7; O2SAT 99
== END 2023-08-18 08:06 | disposition home or self-care (01) ==
PROVIDERS: Emergency Provider Emergency Medicine; PCP Internal Medicine
DX: T59.811A Toxic effect of smoke, accidental (unintentional), initial encounter (principal); R06.02 Shortness of breath; Y92.039 Unspecified place in apartment as the place of occurrence of the external cause; J45.909 Unspecified asthma, uncomplicated; I10 Essential (primary) hypertension; E11.9 Type 2 diabetes mellitus without complications; F31.9 Bipolar disorder, unspecified
CPT/HCPCS: 71045; 82947; 99282; 99284

== ENCOUNTER 2023-10-31 14:58 | Outpatient (AMB) | payer OTHER, SELFPAY ==
[2023-10-31 15:10] VITALS: BP 118/70; PULSE 91; O2SAT 98; BMI 33.3
--- NOTE | 2023-10-31 15:10 | A.OFFPC_ITS ---
Vital Signs 10/31/23 15:10 Height 5 ft 4 in Weight 194 lb BMI 33.3 BP 118/70 Blood Pressure Location Lt brachial Position Sitting Pulse 91 Pulse Source Pulse Oximeter Pulse Oximetry (%) 98 Oxygen Delivery Method Room Air Intake Visit Reasons: DM, depression, anxiety Product Development Consultant Required: No Jailer Chief: Not Required per policy Accompanied by: Self / Same As Patient Allergies acetaminophen [From PERCOCET] Allergy (Severe, Verified 10/31/23 15:40) HIVES oxycodone [From PERCOCET] Allergy (Severe, Verified 10/31/23 15:40) HIVES codeine [CODEINE] Allergy (Unknown, Verified 10/31/23 15:40) HIVES guaifenesin [From ROBITUSSIN CHEST CONGESTION] Adverse Reaction (Unknown, Verified 10/31/23 15:40) HEART RACES Codeine Phosphate Allergy (Unknown, Uncoded 10/31/23 15:40) Hives Pt states no food allergies Allergy (Unknown, Uncoded 10/31/23 15:40) Unknown Robitussin Chest Congestion Allergy (Unknown, Uncoded 10/31/23 15:40) Hives Medication List - Last Reconciled 10/31/23 by Rikki Stearns MD albuterol sulfate 90 mcg/actuation 2 puffs inhalation QID PRN albuterol sulfate 90 mcg/actuation (Ventolin HFA) 2 puffs inhalation Q6H PRN 30 days clonidine HCl 0.1 mg PO QID PRN clonidine HCl 0.1 mg PO Q6H PRN fluticasone propion-salmeterol 115-21 mcg/actuation (Advair HFA) 2 puffs inhalation BID 30 days lamotrigine 200 mg PO .QHS metformin 500 mg PO BID 30 days tizanidine 2 mg PO Q8H PRN 30 days zolpidem (Ambien) 10 mg PO BEDTIME PRN 30 days Tobacco use date assessed: 07/30/23 Dental Screening Dental Screen Date: 07/30/23 HPI DM, depression, anxiety HPI Details Patient comes in today for her follow up visit She feels that her anxiety and depression are currently much better controlled on her current Rx She has also lost some weight recently and is happy about her weight loss Notes that she feels less SOB lately - thinks that this is partly because of her weight loss She denies any headaches or dizziness Denies any chest pains No nausea/vomiting, no abdominal pain No change in bowel habits noted Needs a couple of her Rx refilled States that she was not able to get labs done yet as she had no insurance for a while since she lost her job recently She now has insurance coverage again and will try to get her labs done [facility] History Vitamin D deficiency Diabetes mellitus Obesity (BMI 30-39.9) Osteoarthritis Degenerative disc disease, cervical Thoracic spondylosis Impaired glucose metabolism Thoracic back pain Right leg paresthesias Migraines Obesity GERD without esophagitis Depression Anxiety Insomnia Surgical History History of renal stent History of lumpectomy of right breast Social History Household Members: Other Household Members Other:: 22 yr old daughter Housing: Apartment Alcohol intake: never Patient Tobacco Use Status: Never used Tobacco Tobacco use type: Cigarette e-Cigarette/Vaping Use: Never Used Second Hand Smoke Exposure: Yes Substance Use Type: Marijuana service: No Current occupational status: employed 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 Misha Rock, Linda Forbes, James Jones and colleagues, with an educational irene from [employer]. Review of Systems Const Denies chills, Denies fatigue, Denies fever(s) and Denies headache(s) ENT Denies dysphagia, Denies dizziness, Denies otalgia, Denies headache(s), Denies neck pain, Denies odynophagia and Denies sore throat Card Denies chest pain, Denies palpitations and Denies dyspnea Resp Denies chest congestion, Denies cough and Denies dyspnea GI Denies abdominal pain, Denies constipation, Denies dysphagia, Denies heartburn, Denies diarrhea, Denies nausea, Denies odynophagia and Denies vomiting Denies difficulty voiding, Denies nocturia, Denies dysuria and Denies urinary urgency Musc Denies neck pain Skin/Breast Denies rash Neuro Denies dizziness and Denies headache(s) Psych Denies anxiety (better controlled) and Denies depression (better controlled) Endo Denies fatigue and Denies palpitations Physical exam (Primary Care) Vital Signs: Last Vital Signs Pulse 91 10/31/23 15:10 BP 118/70 10/31/23 15:10 Pulse Ox 98 10/31/23 15:10 Oxygen Delivery Method Room Air 10/31/23 15:10 BMI result Body Mass Index 33.3 Tobacco/Smoking Status: Tobacco use Status Tobacco use date assessed 07/30/23 10/31/23 15:11 Patient Tobacco Use Status Never used Tobacco 10/31/23 15:11 Tobacco use type Cigarette 10/31/23 15:11 e-Cigarette/Vaping Use Never Used 10/31/23 15:11 Thrive Assessment: Date of Thrive Assessment Date Thrive assessed 07/30/23 10/31/23 15:11 Const General: no acute distress and alert HENMT Ears: TM's normal bilaterally and EAC's normal Throat: Yes posterior oropharynx normal and Yes tonsils normal (no TP congestion) Neck Neck: Yes no lymphadenopathy and Yes supple Thyroid: Thyroid normal Resp Auscultation: clear to auscultation bilaterally, no rales and no wheezes Cardio Rate: regular rate Rhythm: regular rhythm Heart sounds: no murmurs GI Palpation (GI): Soft to palpation and nontender Auscultation: normal bowel sounds General: Yes no CVA tenderness Back/Spine/Pelvis Back: no CVA tenderness Skin Rashes: no rashes Extrem General: Yes no clubbing, cyanosis or edema Results AMB Hemoglobin A1c AMB Hemoglobin A1c 6.2 % Last Edit by JEANA Jose on 10/31/23 15:31 Results Reviewed Results Reviewed: Laboratory Last Values Hgb A1c (Clinic) 6.2 % (4.0-6.0) H 10/31/23 15:18 Assessment and Plan Assessment & Plan (1) Diabetes mellitus: Code(s): E11.9 - Type 2 diabetes mellitus without complications Qualifiers: Diabetes mellitus complication status: with hyperglycemia Diabetes mellitus intermediate manager insulin use: without chcf use Diabetes mellitus type: type 2 Qualified Code(s): E11.65 - Type 2 diabetes mellitus with hyperglycemia Plan: Her in-office HgbA1c today is at 6.2% (was at 6.8% a few months ago) - goal is at least <7.0% She has not yet gotten her follow up labs done and is advised to try to get them done DARIUS Reinforced diabetic diet Continue Metformin 500 mg BID for now Will have her recheck her labs again in 4 months for follow up (2) Dyspnea: Code(s): R06.00 - Dyspnea, unspecified Qualifiers: Dyspnea type: unspecified Qualified Code(s): R06.00 - Dyspnea, unspecified Plan: Patient states that her SOB symptoms have improved a lot lately, likely due to the fact that she has lost some weight Chest x-rays done a few months ago came out normal PFTs done in March 2023 revealed findings of mild restrictive lung disease with decreased diffusion capacity, which raises concerns for possible interstitial disease She was seen by pulmonary and sent for chest CT for further evaluation but patient never did not get this done Continue Albuterol HFA 1 to 2 inhalations every 6 hours PRN for now Follow up with pulmonary as scheduled (3) Migraines: Code(s): G43.909 - Migraine, unspecified, not intractable, without status migrainosus Qualifiers: Migraine type: unspecified Status migrainosus presence: without status migrainosus Intractability: not intractable Qualified Code(s): G43.909 - Migraine, unspecified, not intractable, without status migrainosus Plan: States that her migraine headaches have been better controlled lately Reinforced avoidance of all potential migraine triggers May continue taking OTC headache meds PRN for now (4) Vitamin D deficiency: Code(s): E55.9 - Vitamin D deficiency, unspecified Plan: Continue Vitamin D3 2000 units QD (5) Degenerative disc disease, cervical: Comment: mild degenerative disc disease C3-C4 throughout C5-C6 Code(s): M50.30 - Other cervical disc degeneration, unspecified cervical region Plan: Continue OTC Ibuprofen PRN (6) Thoracic spondylosis: Code(s): M47.814 - Spondylosis without myelopathy or radiculopathy, thoracic region Plan: Continue Tizanidine 2 mg Q HS PRN (7) Insomnia: Code(s): G47.00 - Insomnia, unspecified Qualifiers: Insomnia type: unspecified Qualified Code(s): G47.00 - Insomnia, unspecified Plan: Sleep hygiene reinforced Continue Zolpidem 10 mg Q HS (8) Generalized anxiety disorder: Code(s): F41.1 - Generalized anxiety disorder Plan: Feels that her anxiety and mood disorder have been better controlled lately Continue Clonidine 0.1 mg TID and Buspirone 7.5 mg BID Follow up with psychiatry as scheduled (9) PTSD (post-traumatic stress disorder): Code(s): F43.10 - Post-traumatic stress disorder, unspecified Plan: Continue Prazosin 1 mg BID Follow up with psychiatry as scheduled (10) Bipolar 2 disorder: Code(s): F31.81 - Bipolar II disorder Plan: Continue Prazosin 1 mg BID and Lamotrigine 200 mg Q HS Follow up with psychiatry as scheduled (11) Obesity (BMI 30-39.9): Code(s): E66.9 - Obesity, unspecified Plan: Reinforced diet/exercise as tolerated/lose weight Plan Follow up in 4 months Orders: Orders AMB Hemoglobin A1c Today E11.65 - Type 2 diabetes mellitus with hyperglycemia Complete Blood Count Auto Diff 4 Months D64.9 - Anemia, unspecified Lipid Panel 4 Months E78.00 - Pure hypercholesterolemia, unspecified TSH reflex Free T4 4 Months E78.00 - Pure hypercholesterolemia, unspecified Hemoglobin A1c 4 Months E11.9 - Type 2 diabetes mellitus without complications Comprehensive [place]. Panel Fast 4 Months E78.00 - Pure hypercholesterolemia, unspecified UA CC w/rflx Micro + Cult 4 Months R30.0 - Dysuria Medications: Refilled tizanidine 2 mg PO Q8H 30 days PRN 90 tabs 0RF muscle spasms M54.2 - Cervicalgia zolpidem (Ambien) #14 due to pts insurance - may partially fill 10 mg PO BEDTIME 30 days PRN 30 tabs 0RF insomnia Coding Level of Care Code Est Pt Level 4 (01511) Diagnoses Type 2 diabetes mellitus with hyperglycemia, without long-term current use of insulin E11.65 Diabetes mellitus complication status: with hyperglycemia Diabetes mellitus chcf insulin use: without intermediate manager use Diabetes mellitus type: type 2 Dyspnea, unspecified type R06.00 Dyspnea type: unspecified Migraine without status migrainosus, not intractable, unspecified migraine type G43.909 Migraine type: unspecified Status migrainosus presence: without status migrainosus Intractability: not intractable Vitamin D deficiency E55.9 Degenerative disc disease, cervical M50.30 Thoracic spondylosis M47.814 Insomnia, unspecified type G47.00 Insomnia type: unspecified Generalized anxiety disorder F41.1 PTSD (post-traumatic stress disorder) F43.10 Bipolar 2 disorder F31.81 Obesity (BMI 30-39.9) E66.9
== END 2023-10-31 16:30 | disposition home or self-care (01) ==
PROVIDERS: PCP Internal Medicine; Visit Provider Internal Medicine
DX: E11.65 Type 2 diabetes mellitus with hyperglycemia (principal); F31.81 Bipolar II disorder; E66.9 Obesity, unspecified; Z68.33 Body mass index [BMI] 33.0-33.9, adult; R06.00 Dyspnea, unspecified; G43.909 Migraine, unspecified, not intractable, without status migrainosus; E55.9 Vitamin D deficiency, unspecified; M50.30 Other cervical disc degeneration, unspecified cervical region; M47.814 Spondylosis without myelopathy or radiculopathy, thoracic region; G47.00 Insomnia, unspecified; F41.1 Generalized anxiety disorder; F43.10 Post-traumatic stress disorder, unspecified
CPT/HCPCS: 83036; 99214

== ENCOUNTER 2023-12-30 14:04 | Outpatient (AMB) | payer OTHER, SELFPAY ==
--- NOTE | 2023-12-30 14:14 | A.OFFVIS_ITS ---
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 Required: No Information Interpreted: clinical only Ditcher: Ditcher Present Allergies acetaminophen [From PERCOCET] Allergy (Severe, Verified 12/30/23 14:17) HIVES oxycodone [From PERCOCET] Allergy (Severe, Verified 12/30/23 14:17) HIVES codeine [CODEINE] Allergy (Unknown, Verified 12/30/23 14:17) HIVES guaifenesin [From ROBITUSSIN CHEST CONGESTION] Adverse Reaction (Unknown, Verified 12/30/23 14:17) HEART RACES Codeine Phosphate Allergy (Unknown, Uncoded 12/30/23 14:17) Hives Pt states no food allergies Allergy (Unknown, Uncoded 12/30/23 14:17) Unknown Robitussin Chest Congestion Allergy (Unknown, Uncoded 12/30/23 14:17) Hives Medication List - Last Reconciled 12/30/23 by Erica Spencer CNM albuterol sulfate 90 mcg/actuation 2 puffs inhalation QID PRN albuterol sulfate 90 mcg/actuation (Ventolin HFA) 2 puffs inhalation Q6H PRN 30 days blood sugar diagnostic (FreeStyle Lite Strips) As directed once a day blood-glucose meter (FreeStyle Lite Meter kit) As directed clonidine HCl 0.1 mg PO Q6H PRN lamotrigine 200 mg PO .QHS lancets (FreeStyle Lancets) As directed once a day levonorgestrel (Mirena) intrauterine metformin 500 mg PO BID 30 days tizanidine 2 mg PO Q8H PRN 30 days zolpidem (Ambien) 10 mg PO BEDTIME PRN 30 days Is last menstrual period known: No (IUD) Do you need a note to return to daycare/school/sports/work: No HPI HPI 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 She is not getting her period on them. She was diagnosed with diabetes little over year ago and she has gotten her blood sugars in really good control and she lost a lot of weight simply by cutting out so the. She is feeling much better she lost a significant amount of weight. She is also having some mental health concerns because of toxic job and she is feeling things are much better managed now. She is on several medications but not experiencing any negative side effects from them. [facility] Medical History Vitamin D deficiency Diabetes mellitus Obesity (BMI 30-39.9) Osteoarthritis Degenerative disc disease, cervical Thoracic spondylosis Impaired glucose metabolism Thoracic back pain Right leg paresthesias Migraines Obesity GERD without esophagitis Depression Anxiety Insomnia Surgical History History of renal stent History of lumpectomy of right breast Social History Household Members: Other Household Members Other:: 22 yr old daughter Housing: Apartment Alcohol intake: never Patient Tobacco Use Status: Never used Tobacco Tobacco use type: Cigarette e-Cigarette/Vaping Use: Never Used Second Hand Smoke Exposure: Yes Substance Use Type: Marijuana service: No Current occupational status: employed 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 Current occupational exposures/hazards: No Cognitive needs: No Hearing needs: No Vision needs: No Female Reproductive History Menstrual Age of Menarche: 12 Duration of menses: 6-7 days control method: progestin IUCD Total pregnancies: 1 Full term: 1 Date of last pap smear: 03/21/21 (neg,previous pap 2014,WNL) History of abnormal pap smear: Yes (unsure date,23 yrs ago) History of abnormal mammogram: No (no previous mamm.) Physical Exam Vital Signs: Last Vital Signs BP 118/70 12/30/23 14:16 BMI result Body Mass Index 33.8 Const General: healthy appearing, comfortable, no acute distress, well developed and alert Nutritional Appearance: average body habitus Orientation/consciousness: patient oriented x3 Limitations: no limitations HEENT Head: Yes normocephalic Neck Neck: Yes normal visual inspection Chest Chest palpation & inspection: normal inspection of the chest Breast/axilla inspection: normal inspection of the breasts and normal inspection of the axillae Breast/axilla palpation: normal palpation of the breasts and normal palpation of the axillae Resp Effort & Inspection: normal respiratory effort GI Inspection: Yes normal to inspection, No Abdominal wall edema and No distended Palpation (GI): Soft to palpation and nontender General: Yes bladder normal to palpation External Female Exam: normal external appearance and normal appearance of the urethra Speculum Exam - Vagina: normal appearance of the vagina, normal palpation and normal vaginal discharge Speculum Exam - Cervix: normal appearance of the cervix, normal palpation and nontender Bimanual exam- vagina & uterus: normal bimanual exam, normal palpation, uterine size normal, bladder normal to palpation, consistency normal, normal palpation, uterine mobility normal, uterine shape normal, No Cervical tenderness present, non-tender and no cervical motion tenderness Bimanual Exam- Adnexa, other: normal adnexae, no masses, normal and No adnexal tenderness Neuro General: patient oriented x3 Assessment & Plan Assessment & Plan (1) Presence of 52 mg levonorgestrel-releasing intrauterine device (IUD): Comment: IUD was exchanged/replaced 05/08/2021 by BM. Code(s): Z97.5 - Presence of (intrauterine) contraceptive device Category: Social Hx Plan -----Discussed in this visit the following: healthy balanced diet, regular and consistent exercise, getting recommended health screens, doing the best she can for her particular health concerns, kegel exercises, pap smear screening and followup recommendations, mammography screening and SBE, normal changes in cycles in her life stage--- . Reviewed the newer guidelines for how long the Mirena can be used 5 years for managing abnormal bleeding 8 years for contraception however I also reviewed with her that if between 5 and 8 years if she returned to normal menses and experience symptoms of potential ovulation that it would not be gonzalez to depend on it for control and it would be completely reasonable to expect that it should be replaced under those circumstances. She also had questions relating to her daughter who had been told that she had a heart-shaped uterus she was wondering she might have endometriosis she does have care providers in another system and another town, and I suggested she and her daughter sit in right some question so that they can together ask questions of her provider and just And I discussed some generalities of the concerns Orders: Orders MM tomosynthesis screening BI Today Z12.31 - Encounter for screening mammogram for malignant neoplasm of breast, Z97.5 - Presence of (intrauterine) contraceptive device Bacterial Vaginosis Panel Today N89.8 - Other specified noninflammatory disorders of vagina CT NG by PCR Today Z20.2 - Contact with and (suspected) exposure to infections with a predominantly sexual mode of transmission Coding Level of Care Code Est Pt Prev Care 40-64y(62295) Diagnoses Presence of 52 mg levonorgestrel-releasing intrauterine device (IUD) Z97.5
[2023-12-30 14:16] VITALS: BP 118/70; BMI 33.8
== END 2023-12-30 15:16 | disposition home or self-care (01) ==
LOC: HO.HWSM 14:04
PROVIDERS: PCP Internal Medicine; Visit Provider Advanced Practice Midwife
DX: Z01.419 Encounter for gynecological examination (general) (routine) without abnormal findings (principal)
CPT/HCPCS: 99396

== ENCOUNTER 2023-12-30 14:04 | Outpatient (REF) | payer OTHER, SELFPAY ==
[2023-12-31 03:41] LABS: CT PCR NOT DETECTED (Not Detect.); NG PCR NOT DETECTED (Not Detect.)
[2023-12-31 11:33] LABS: Bacterial Vaginosis PCR NEGATIVE (Negative); Candida Group PCR NOT DETECTED (Not Detect); Candida glab krusei PCR NOT DETECTED (Not Detect); Trichomonas vaginalis PCR NOT DETECTED (Not Detect)
== END 2023-12-30 14:05 | disposition home or self-care (01) ==
LOC: HO.LAB 14:04
PROVIDERS: PCP Internal Medicine; Visit Provider Advanced Practice Midwife
DX: Z01.419 Encounter for gynecological examination (general) (routine) without abnormal findings (principal); N89.8 Other specified noninflammatory disorders of vagina; Z20.2 Contact with and (suspected) exposure to infections with a predominantly sexual mode of transmission; Z97.5 Presence of (intrauterine) contraceptive device
CPT/HCPCS: 0352U; 87491; 87591; 99396

== ENCOUNTER 2024-07-08 14:22 | Outpatient (AMB) | payer OTHER, SELFPAY ==
--- OUTSIDE RECORDS SUMMARY | 2024-07-08 14:25 | XMS_ITS | Clinical Summary ---
Author Organization [facility] Address [address] [place] [address] Care Team Providers Care Business Line Manager Name Role Phone Unavailable Primary Care Provider Unavailabl e Social History Tobacco Use Types Packs/Day Years Used Date Smoking Tobacco: Never Assessed Sex and Gender Information Value Date Recorded Sex Assigned at Not on file Gender Identity Not on file Sexual Orientation Not on file Plan of Treatment Health Maintenance Due Date Last Done Comments Hepatitis C Virus Screening 1980 HIV Screening 1993 DTaP/Tdap/Td Vaccines (1 - Tdap) 09/28/1999 Hepatitis B Vaccines (1 of 3 - 19+ 3-dose series) 09/28/1999 COVID-19 Vaccine (2023-2 5 season) 2024 HPV Vaccines Aged Out No longer eligi ble based on patient's age to complete this topic Pneumococcal Vaccine: Pediat adan (0-5 Years) and At-Risk Patients (6 to 49 Years) Aged Out No longer eligible b ased on patient's age to complete this topic
--- NOTE | 2024-07-08 14:30 | A.OFFPC_ITS ---
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 Accompanied by: Self / Same As Patient Allergies acetaminophen [From PERCOCET] Allergy (Severe, Verified 07/08/24 14:38) HIVES oxycodone [From PERCOCET] Allergy (Severe, Verified 07/08/24 14:38) HIVES codeine [CODEINE] Allergy (Unknown, Verified 07/08/24 14:38) HIVES guaifenesin [From ROBITUSSIN CHEST CONGESTION] Adverse Reaction (Unknown, Verified 07/08/24 14:38) HEART RACES Codeine Phosphate Allergy (Unknown, Uncoded 07/08/24 14:38) Hives Pt states no food allergies Allergy (Unknown, Uncoded 07/08/24 14:38) Unknown Robitussin Chest Congestion Allergy (Unknown, Uncoded 07/08/24 14:38) Hives Medication List - Last Reconciled 07/08/24 by PAVEL Velasquez albuterol sulfate 90 mcg/actuation 2 puffs inhalation QID PRN albuterol sulfate 90 mcg/actuation (Ventolin HFA) 2 puffs inhalation Q6H PRN 30 days blood sugar diagnostic (FreeStyle Lite Strips) As directed once a day blood-glucose meter (FreeStyle Lite Meter kit) As directed clonidine HCl 0.1 mg PO Q6H PRN lamotrigine 200 mg PO .QHS lancets (FreeStyle Lancets) As directed once a day levonorgestrel (Mirena) intrauterine metformin 500 mg PO BID 30 days tizanidine 2 mg PO Q8H PRN 30 days zolpidem (Ambien) 10 mg PO BEDTIME PRN 30 days Tobacco use date assessed: 07/08/24 Dental Screening Dental Screen Date: 07/08/24 Did you have a dental visit in the last 12 months?: No Did you have a dental problem in the last 6 months where you did not have access to dental care?: No Was dental information given to patient?: Patient has dentist HPI elevated BP HPI Details The patient is a 43-year-old female with significant past medical history of interstitial lung disease, diabetes mellitus, obesity, posttraumatic stress disorder, bipolar disorder and elevated blood pressure reading without diagnosis of hypertension Patient is presenting with concern of high blood pressure Reports that she does not check her blood pressure at home but the last 2 times she got sick She went to [facility] and her blood pressure was elevated there Reports her last episode was about a month ago when she had an ear infection Reports she does not have a blood pressure machine so she has not been checking her blood pressure at home Reports intermittent chest pain that feels like she cannot breathe or a squeezing sensation and sometimes like a sharp pain Patient reports a correlation with increased anxiety and stress during these episodes Reports that she is also concerned that she has been steadily increasing her weight and she has not been doing anything different with her diet Reports that the only thing different that she has been doing, since her daug hter started college and coming home later, she has been cooking later and eating later at night Discussed with patient that eating late might be the contributing factor to her weight gain Patient also reports that her anxiety has been bad, she has change job and that in itself makes her anxious She reports that she has been coping with it. The patient was encouraged to follow up with Psychiatry The patient endorses heartburn that is infrequent, about once a week. Discussed with patient that eating late might be a contributing factor along with the type of foods that she is eating FORMERLY [facility] Medical History Vitamin D deficiency Diabetes mellitus Obesity (BMI 30-39.9) Osteoarthritis Degenerative disc disease, cervical Thoracic spondylosis Impaired glucose metabolism Thoracic back pain Right leg paresthesias Migraines Obesity GERD without esophagitis Depression Anxiety Insomnia Surgical History History of renal stent History of lumpectomy of right breast Social History Household Members: Other Household Members Other:: 22 yr old daughter Housing: Apartment Alcohol intake: never Patient Tobacco Use Status: Never used Tobacco Tobacco use type: Cigarette e-Cigarette/Vaping Use: Never Used Second Hand Smoke Exposure: Yes Substance Use Type: Marijuana service: No Current occupational status: employed 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 1. Little interest or pleasure in doing things: not at all 2. Feeling down, depressed, or hopeless: not at all 3. Trouble falling or staying asleep, or sleeping too much: not at all 4. Feeling tired or having little energy: not at all 5. Poor appetite or overeating: not at all 6. Feeling bad about yourself - or that you are a failure or have let yourself or your family down: not at all 7. Trouble concentrating on things, such as reading the newspaper or watching television: not at all 8. Moving or speaking so slowly that other people could have noticed. Or the opposite - being so fidgety or restless that you have been moving around a lot more than usual: not at all 9. Thoughts that you would be better off or of hurting yourself in some way: not at all Total score: 0 Depression Screening Interpretation: Negative Depression Screening Done: Yes 74917 - PHQ-9 Billing: Yes Source: Developed by Drs. Misha Rock, Linda Forbes, James Jones and colleagues, with an educational irene from [employer]. Thrive Questionnaire Date Thrive assessed: 07/08/24 I am a: Patient What is your living situation today?: I have a steady place to live Within the past 12 months, did the food you bought not last and you didn't have the money to get more?: Never true Within the past 12 months, did you worry whether your food would run out before you got money to buy more?: Never true Do you have trouble paying for medicines?: No Do you have trouble getting transportation to medical appointments?: No Do you have trouble paying your heating and electricity bill?: No Do you have trouble taking care of your child, family member or friend?: No Do you have trouble with day-to-day activities such as bathing, preparing meals, shopping, managing finances, etc.?: No Are you currently unemployed and looking for a job?: No Are you interested in more education?: No Please select the resources that you would like help with: None THRIVE Score: 0 AUDIT C Alcohol Use Questionnaire (AUDIT-C) 1. How often do you have a drink containing alcohol?: Never Total Score: 0 ELLEN-7 AMB Questionnaire ELLEN-7 Date ELLEN - 7 assessed: 07/08/24 Feeling nervous, anxious, or on edge: 1 = Several days Not being able to stop or control worryin = Not at all Worrying too much about different things: 0 = Not at all Trouble relaxin = Not at all Being so restless that it is hard to sit still: 0 = Not at all Becoming easily annoyed or irritable: 0 = Not at all Feeling afraid as if something awful might happen: 0 = Not at all Total ELLEN-7 score (0-4 normal; 5-9 mild; 10-14 moderate; 15-21 severe): 1 Source: Developed by Drs. Misha Rock, Linda Forbes, James Jones and colleagues, with an educational irene from [employer]. ELLEN-7 Assessment Billing ELLEN-7 Assessment Tool: ELLEN-7 Assessment 80192 Review of Systems Const Details: Denies chills, Denies fatigue, Denies fever(s), Denies headache(s) and Denies weakness HEENT Denies change in vision, Denies dizziness, Denies headache(s), Denies hearing loss, Denies nasal congestion, Denies sinus pain, Denies sinus pressure and Denies sore throat Card + intermittently chest pain with anxiety, Denies lightheadedness, +dyspnea with anxiety and Denies other (palpitations) Resp Denies cough, +dyspnea with anxiety and Denies wheezing GI Denies abdominal pain, Denies melena, Denies hematochezia, Denies change in bowel habits, Denies dyspepsia and Denies nausea Denies hematuria and Denies dysuria Musc Denies abnormal gait, Denies myalgias, Denies arthralgias, Denies numbness and Denies tingling Skin/Breast Denies rash, Denies unusual bruising and Denies wounds Neuro Denies abnormal gait, Denies dizziness, Denies headache(s), Denies memory loss, Denies numbness, Denies Sensory deficit (Neuro), Denies tingling and Denies weakness Psych +anxiety, +depression and Denies memory loss Endo Denies cold intolerance, Denies fatigue, Denies heat intolerance, Denies polydipsia and Denies polyuria Harvey/Lymph Denies easy bleeding and Denies easy bruising Aller/Immun Denies wheezing Physical exam (Primary Care) Vital Signs: Last Vital Signs Temp 97.7 F 07/08/24 14:32 Pulse 92 07/08/24 14:32 BP 142/90 H 07/08/24 14:32 Pulse Ox 98 07/08/24 14:32 Oxygen Delivery Method Room Air 07/08/24 14:32 BMI result Body Mass Index 35.5 Tobacco/Smoking Status: Tobacco use Status Tobacco use date assessed 07/08/24 07/08/24 14:37 Patient Tobacco Use Status Never used Tobacco 07/08/24 14:37 Tobacco use type Cigarette 07/08/24 14:37 e-Cigarette/Vaping Use Never Used 07/08/24 14:37 PHQ-9: PHQ-9 Score PHQ-9: Total score 0 07/08/24 14:37 Depression Screening Interpretation: Negative Thrive Assessment: Date of Thrive Assessment Date Thrive assessed 07/08/24 07/08/24 14:37 Const Other: General: no acute distress, well developed, alert and awake Nutritional Appearance: well nourished Orientation/consciousness: patient oriented x3 HENMT Head: Yes normocephalic and Yes atraumatic Ears: hearing grossly normal bilaterally and TM's normal bilaterally General nose exam: Normal external nose present and Normal nares present Mouth: Normal oral and palatal mucosa present and moist mucous membranes Eyes Pupils: Equal, round and reactive pupils present and Pupil accommodation reflex normal EOM: EOMs intact bilaterally Neck Neck: Yes normal visual inspection, Yes no lymphadenopathy and Yes trachea midline Thyroid: Thyroid normal Carotids: no bruits Lymphatic: no lymphadenopathy noted Resp Effort & Inspection: normal respiratory effort Auscultation: clear to auscultation bilaterally Cardio Rate: regular rate Rhythm: regular rhythm Heart sounds: S1 normal heart sound present, S2 normal heart sound present, no gallops, no murmurs and no rubs GI Palpation (GI): No Abdominal aortic bruit present, Soft to palpation, nontender, No hepatosplenomegaly present and No Rebound tenderness present Auscultation: normal bowel sounds General: Yes no CVA tenderness Back/Spine/Pelvis Back: no CVA tenderness Cervical Spine: cervical ROM normal and No Cervical spine tenderness Thoracic/Lumbar Spine: No lumbar tenderness Skin General: warm and dry. Normal skin color. Normal skin turgor Lesions: no lesions Rashes: no rashes Trauma: no lacerations or abrasions Wounds: no wounds Nails: normal Neuro General: patient oriented x3, gait normal Cranial nerves: Yes Equal, round and reactive pupils present Cognition (Neuro): normal cognition Gait exam (Neuro): Normal gait present Extrem General: Yes normal to inspection, No edema and No calf tenderness Psych Appearance: grossly normal Affect: normal affect Attitude: cooperative Thought process: Normal thought process present Coding Level of Care Code Est Pt Level 4 (64464) Diagnoses Chest tightness R07.89 ILD (interstitial lung disease) J84.9 Type 2 diabetes mellitus with hyperglycemia, without long-term current use of insulin E11.65 Diabetes mellitus type: type 2 Diabetes 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 Diabetes mellitus complication status: with hyperglycemia Obesity (BMI 30-39.9) E66.9 Bipolar 2 disorder F31.81 Generalized anxiety disorder F41.1 GERD without esophagitis K21.9 Elevated blood pressure reading with diagnosis of hypertension I10 Additional Codes PHQ-9 - 93764 - PHQ-9 Billing: Yes ([id number]) ELLEN-7 Assessment Billing - ELLEN-7 Assessment Tool: ELLEN-7 Assessment 26641 ([id number]) Time Spent (min) 36 Assessment & Plan Assessment & Plan (1) Chest tightness: Code(s): R07.89 - Other chest pain Category: Medical Plan: Reports intermittent chest pain that feels like she cannot breathe or a squeezing sensation and sometimes like a sharp pain Patient reports a correlation with increasing anxiety and stress during these episodes Discussed with patient that if it her pain happens without anxiety or not stopping she should contact the office or go to the emergency room. Patient had an echocardiogram done on 06/25/2023. That showed normal left ventricle systolic with grade 1 diastolic dysfunction, normal valvular Doppler, and no pericardial effusion (2) ILD (interstitial lung disease): Code(s): J84.9 - Interstitial pulmonary disease, unspecified Category: Medical Plan: Continue albuterol sulfate 90 mcg/actuation 2 puffs inhalation q.i.d. p.r.n. 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 No recent labs, A1c ordered to be completed for next month follow up appointment (4) Obesity (BMI 30-39.9): Code(s): E66.9 - Obesity, unspecified Category: Medical Plan: Encouraged dietary modification and activity as tolerated (5) Bipolar 2 disorder: Code(s): F31.81 - Bipolar II disorder Category: Medical Plan: Continue lamotrigine 200 mg q.h.s. Follow up with Psychiatry as scheduled (6) Generalized anxiety disorder: Code(s): F41.1 - Generalized anxiety disorder Category: Medical Plan: Follow up with Psychiatry (7) GERD without esophagitis: Code(s): K21.9 - Gastro-esophageal reflux disease without esophagitis Category: Medical Plan: Reinforced dietary restrictions. Refrain from eating close to bedtime (8) Elevated blood pressure reading with diagnosis of hypertension: Code(s): I10 - Essential (primary) hypertension Category: Medical Plan: Reinforced low-sodium diet Start amlodipine 5 mg daily Monitor blood pressure regularly-patient reports she will get a blood pressure cuff Patient to return in 1 month for blood pressure evaluation Plan Patient to return in 1 month for blood pressure evaluation. New medications started for blood pressure. She has no recent labs, will order labs to be completed for a follow up appointment Orders: Orders UA CC w/rflx Micro + Cult 1 Month E11.65 - Type 2 diabetes mellitus with hyperglycemia, E55.9 - Vitamin D deficiency, unspecified, F31.81 - Bipolar II disorder, F32.9 - Major depressive disorder, single episode, unspecified, F41.1 - Generalized anxiety disorder, F41.9 - Anxiety disorder, unspecified, F43.10 - Post-traumatic stress disorder, unspecified, G43.909 - Migraine, unspecified, not intractable, without status migrainosus, I10 - Essential (primary) hypertension, J84.9 - Interstitial pulmonary disease, unspecified, K21.9 - Gastro-esophageal reflux disease without esophagitis, R07.89 - Other chest pain, R21 - Rash and other nonspecific skin eruption, R73.09 - Other abnormal glucose TSH reflex Free T4 1 Month E11.65 - Type 2 diabetes mellitus with hyperglycemia, E55.9 - Vitamin D deficiency, unspecified, F31.81 - Bipolar II disorder, F32.9 - Major depressive disorder, single episode, unspecified, F41.1 - Generalized anxiety disorder, F41.9 - Anxiety disorder, unspecified, F43.10 - Post-traumatic stress disorder, unspecified, G43.909 - Migraine, unspecified, not intractable, without status migrainosus, I10 - Essential (primary) hypertension, J84.9 - Interstitial pulmonary disease, unspecified, K21.9 - Gastro-esophageal reflux disease without esophagitis, R07.89 - Other chest pain, R21 - Rash and other nonspecific skin eruption, R73.09 - Other abnormal glucose Glucose Fasting 1 Month E11.65 - Type 2 diabetes mellitus with hyperglycemia, E55.9 - Vitamin D deficiency, unspecified, F31.81 - Bipolar II disorder, F32.9 - Major depressive disorder, single episode, unspecified, F41.1 - Generalized anxiety disorder, F41.9 - Anxiety disorder, unspecified, F43.10 - Post-traumatic stress disorder, unspecified, G43.909 - Migraine, unspecified, not intractable, without status migrainosus, I10 - Essential (primary) hypertension, J84.9 - Interstitial pulmonary disease, unspecified, K21.9 - Gastro-esophageal reflux disease without esophagitis, R07.89 - Other chest pain, R21 - Rash and other nonspecific skin eruption, R73.09 - Other abnormal glucose Complete Blood Count Auto Diff 1 Month E11.65 - Type 2 diabetes mellitus with hyperglycemia, E55.9 - Vitamin D deficiency, unspecified, F31.81 - Bipolar II disorder, F32.9 - Major depressive disorder, single episode, unspecified, F41.1 - Generalized anxiety disorder, F41.9 - Anxiety disorder, unspecified, F43.10 - Post-traumatic stress disorder, unspecified, G43.909 - Migraine, unspecified, not intractable, without status migrainosus, I10 - Essential (primary) hypertension, J84.9 - Interstitial pulmonary disease, unspecified, K21.9 - Gastro-esophageal reflux disease without esophagitis, R07.89 - Other chest pain, R21 - Rash and other nonspecific skin eruption, R73.09 - Other abnormal glucose Comprehensive Ball. Panel Fast 1 Month E11.65 - Type 2 diabetes mellitus with hyperglycemia, E55.9 - Vitamin D deficiency, unspecified, F31.81 - Bipolar II disorder, F32.9 - Major depressive disorder, single episode, unspecified, F41.1 - Generalized anxiety disorder, F41.9 - Anxiety disorder, unspecified, F43.10 - Post-traumatic stress disorder, unspecified, G43.909 - Migraine, unspecified, not intractable, without status migrainosus, I10 - Essential (primary) hypertension, J84.9 - Interstitial pulmonary disease, unspecified, K21.9 - Gastro-esophageal reflux disease without esophagitis, R07.89 - Other chest pain, R21 - Rash and other nonspecific skin eruption, R73.09 - Other abnormal glucose Lipid Panel 1 Month E11.65 - Type 2 diabetes mellitus with hyperglycemia, E55.9 - Vitamin D deficiency, unspecified, F31.81 - Bipolar II disorder, F32.9 - Major depressive disorder, single episode, unspecified, F41.1 - Generalized anxiety disorder, F41.9 - Anxiety disorder, unspecified, F43.10 - Post-traumatic stress disorder, unspecified, G43.909 - Migraine, unspecified, not intractable, without status migrainosus, I10 - Essential (primary) hypertension, J84.9 - Interstitial pulmonary disease, unspecified, K21.9 - Gastro-esophageal reflux disease without esophagitis, R07.89 - Other chest pain, R21 - Rash and other nonspecific skin eruption, R73.09 - Other abnormal glucose Vitamin D 25-OH Total 1 Month E11.65 - Type 2 diabetes mellitus with hyperglycemia, E55.9 - Vitamin D deficiency, unspecified, F31.81 - Bipolar II disorder, F32.9 - Major depressive disorder, single episode, unspecified, F41.1 - Generalized anxiety disorder, F41.9 - Anxiety disorder, unspecified, F43.10 - Post-traumatic stress disorder, unspecified, G43.909 - Migraine, unspecified, not intractable, without status migrainosus, I10 - Essential (primary) hypertension, J84.9 - Interstitial pulmonary disease, unspecified, K21.9 - Gastro-esophageal reflux disease without esophagitis, R07.89 - Other chest pain, R21 - Rash and other nonspecific skin eruption, R73.09 - Other abnormal glucose Hemoglobin A1c 1 Month E11.65 - Type 2 diabetes mellitus with hyperglycemia, E55.9 - Vitamin D deficiency, unspecified, F31.81 - Bipolar II disorder, F32.9 - Major depressive disorder, single episode, unspecified, F41.1 - Generalized anxiety disorder, F41.9 - Anxiety disorder, unspecified, F43.10 - Post-traumatic stress disorder, unspecified, G43.909 - Migraine, unspecified, not intractable, without status migrainosus, I10 - Essential (primary) hypertension, J84.9 - Interstitial pulmonary disease, unspecified, K21.9 - Gastro-esophageal reflux disease without esophagitis, R07.89 - Other chest pain, R21 - Rash and other nonspecific skin eruption, R73.09 - Other abnormal glucose Medications: New amlodipine 5 mg PO DAILY 30 tabs 1RF
[2024-07-08 14:32] VITALS: BP 142/90; PULSE 92; TEMP 36.5; O2SAT 98; BMI 35.5
== END 2024-07-08 15:06 | disposition home or self-care (01) ==
PROVIDERS: PCP Internal Medicine
DX: R07.89 Other chest pain (principal); J84.9 Interstitial pulmonary disease, unspecified; E11.65 Type 2 diabetes mellitus with hyperglycemia; E66.9 Obesity, unspecified; F31.81 Bipolar II disorder; F41.1 Generalized anxiety disorder; K21.9 Gastro-esophageal reflux disease without esophagitis; I10 Essential (primary) hypertension

== ENCOUNTER → 2024-07-08 14:22 | Outpatient (BNVA) | payer OTHER, SELFPAY | PROVIDERS: PCP Internal Medicine | DX: R07.89 Other chest pain (principal); J84.9 Interstitial pulmonary disease, unspecified; E11.65 Type 2 diabetes mellitus with hyperglycemia; E66.9 Obesity, unspecified; F31.81 Bipolar II disorder; F41.1 Generalized anxiety disorder; K21.9 Gastro-esophageal reflux disease without esophagitis; I10 Essential (primary) hypertension | CPT/HCPCS: 96127; 99212 ==

== ENCOUNTER 2024-08-01 09:55 | Emergency (ER) | payer MEDICAID, SELFPAY ==
--- NOTE | ~2024-08-01 | XR_ITS ---
CLINICAL HISTORY: cough 1 view chest x-ray Comparison: CR/SR - XR CHEST 1V - 08/18/23 06:18 EDT Findings: Patchy opacity in the left lower lobe is suggestive of a small infiltrate. No pleural effusion or pneumothorax. Normal size heart. No acute fracture. IMPRESSION: Patchy opacity in the left lower lobe is suggestive of a small infiltrate. This document has been electronically signed by: Hillary Avila DO on 08/01/2024 12:43:47
[2024-08-01 10:16] VITALS: BP 131/86; PULSE 93; RESP 20; TEMP 36.8; O2SAT 97; BMI 34.7
--- NOTE | 2024-08-01 10:47 | ED.URI ---
HPI - URI/Sore Throat General Chief Complaint: Upper Respiratory Symptoms Stated Complaint: cough Time Seen by Provider: 08/01/24 10:29 Source: patient and old records reviewed Mode of arrival: ambulatory Limitations: no limitations History of Present Illness ED Provider: CHAYITO NINO Narrative: 43 yo female with PMH of PTSD, HTN, diabetes, GERD, reactive airway disease here with c/o body aches, cough, fevers and sore throat since . No recent travel or sick contacts but has spent time at her daughters bedside recently and was in hospital waiting rooms etc. She denies hx of asthma to me. She notes no n/v/d. She feels her cough is deep and painful. MD elicited complaint: fever, cough, sore throat and rhinorrhea Onset (ago): day(s) (since ) Consistency: constant Severity: moderate Description of mucous: clear Able to tolerate fluids by mouth: Yes Exacerbating factors: swallowing Relieving factors: nothing Context: sick contacts Associated symptoms: fever, chills, myalgias, rhinorrhea, sore throat and cough Treatments prior to arrival: none Related Data Home Medications ?Medication ?Instructions ?Recorded ?Confirmed clonidine HCl 0.1 mg tablet 0.1 mg PO Q6H PRN anxiety 07/30/23 07/08/24 levonorgestrel 21 mcg/24 hr (up to intrauterine 12/30/23 07/08/24 8 years) 52 mg intrauterine device (Mirena) Previous Rx's ?Medication ?Instructions ?Recorded albuterol sulfate 90 mcg/actuation 2 puff inhalation Q6H PRN 02/19/23 aerosol inhaler (Ventolin HFA) shortness of breath or wheezing 30 days #8.5 grams albuterol sulfate 90 mcg/actuation 2 puff inhalation QID PRN 08/18/23 aerosol inhaler shortness of breath or wheezing #6.7 grams lamotrigine 200 mg tablet 200 mg PO .QHS #7 tabs 08/18/23 blood-glucose meter (FreeStyle #1 ea 12/02/23 Lite Meter kit) lancets 28 gauge (FreeStyle #100 ea 12/02/23 Lancets) blood sugar diagnostic (FreeStyle #100 ea 04/13/24 Lite Strips) metformin 500 mg tablet 500 mg PO BID 30 days #60 tabs 04/13/24 zolpidem 10 mg tablet (Ambien) 10 mg PO BEDTIME PRN insomnia 30 04/13/24 days #30 tabs amlodipine 5 mg tablet 5 mg PO DAILY #90 tabs 07/09/24 tizanidine 2 mg tablet 2 mg PO Q8H PRN muscle spasms 30 07/09/24 days #90 tabs albuterol sulfate 90 mcg/actuation 2 puff inhalation QID PRN 08/01/24 aerosol inhaler shortness of breath or wheezing #6.7 grams amoxicillin 875 mg-potassium 1 tab PO BID #14 tabs 08/01/24 clavulanate 125 mg tablet azithromycin 250 mg tablet See Rx Instructions PO .COMPLEX #6 08/01/24 tabs benzonatate 200 mg capsule 200 mg PO BID PRN cough #20 caps 08/01/24 prednisone 20 mg tablet 40 mg (2 x 20 mg) PO DAILY 5 days 08/01/24 #10 tabs Allergies Allergy/AdvReac Type Severity Reaction Status Date / Time acetaminophen [From PERCOCET] Allergy Severe HIVES Verified 08/01/24 10:19 oxycodone [From PERCOCET] Allergy Severe HIVES Verified 08/01/24 10:19 codeine [CODEINE] Allergy Unknown HIVES Verified 08/01/24 10:19 guaifenesin AdvReac Unknown HEART RACES Verified 08/01/24 10:19 [From ROBITUSSIN CHEST CONGESTION] Codeine Phosphate Allergy Unknown Hives Uncoded 07/08/24 14:38 Pt states no food allergies Allergy Unknown Unknown Uncoded 07/08/24 14:38 Robitussin Chest Congestion Allergy Unknown Hives Uncoded 07/08/24 14:38 Review of Systems Review of Systems: Constitutional : positive Fever, positive Chills, positive fatigue, positive Malaise ENT/Mouth : positive sore throat, positive runny nose Eyes: No Discharge Cardiovascular : No Chest Pain, No SOB Respiratory : pos Cough, No Sputum Gastrointestinal : No Nausea, No Vomiting, No Diarrhea Genitourinary : No Dysuria, No Urinary Frequency Musculoskeletal : positive Myalgia Skin : No rash Neuro : pos Headache All other systems reviewed and are negative PMFSH Past Medical History Attestation statement: The following information was validated with the patient. Source: old records reviewed Medical History Vitamin D deficiency Diabetes mellitus Obesity (BMI 30-39.9) Osteoarthritis Degenerative disc disease, cervical Thoracic spondylosis Impaired glucose metabolism Thoracic back pain Right leg paresthesias Migraines Obesity GERD without esophagitis Depression Anxiety Insomnia Surgical History History of renal stent History of lumpectomy of right breast Social History Social History Household Members: Other Household Members Other:: 22 yr old daughter Housing: Apartment Alcohol intake: never Patient Tobacco Use Status: Never used Tobacco Tobacco use type: Cigarette e-Cigarette/Vaping Use: Never Used Second Hand Smoke Exposure: Yes Substance Use Type: Marijuana Advance Directives: No Advance Directives Information Provided: Yes Do you have a plan to hurt others: No Plan service: No Current occupational status: employed 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 Oriented X3. No acute distress. Eyes: Pupils equal, round and reactive to light. ENT: Pharynx erythema but no exudates and uvula is midline Neck: Normal inspection. Neck supple. CVS: Normal heart rate and rhythm. Pulses normal. Respiratory: No respiratory distress. Breath sounds normal. No wheezes heard Abdomen: Soft and nontender. Skin: Skin warm and dry. Normal skin color. Normal skin turgor. Extremities: No lower extremity edema. No calf ttp Neuro: Oriented X 3. No motor deficit. No sensory deficit. CN2-12 intact Course Course Course Narrative: called to patient - started on augmentin and azithromycin, CXR possible pneumonia Medications Administered Discontinued Medications Generic Name Dose Route Start Last Admin Trade Name Freq PRN Reason Stop Dose Admin Benzonatate 200 mg 08/01/24 10:39 08/01/24 12:04 Benzonatate 100 Mg Capsule PO 08/01/24 10:40 200 mg ONCE ONE Administration Medical Decision Making Medical Decision Making [facility] Narrative: 43 yo female with PMH of PTSD, HTN, diabetes, GERD, reactive airway disease here with c/o URI symptoms and sore throat along with cough since . VS stable, well hydrated, not toxic appearing at this time will obtain CXR and viral panel/strep. Suspect viral illness on exam Differential Diagnosis Differential Diagnoses: The differential diagnosis associated with the presentation includes bronchitis, viral illness Admission/Observation Consideration of admission/observation: Escalation of care including admission/observation considered not toxic, can be managed as outpatient Lab Data [facility] Lab Attestation statement: I reviewed the patient's lab results. out of window for tamiflu Labs: Lab Results 08/01/24 Range/Units 10:25 Influenza Type A (PCR) POSITIVE A (Negative) Influenza Type B (PCR) NEGATIVE (Negative) RSV RNA Qual (PCR) NEGATIVE (Negative) SARS-CoV-2 RNA (RT-PCR) NEGATIVE (Negative) S. pyogenes GrpA BART Negative (Negative) Independent Interpretation I performed an independent interpretation of an: Plain X-Ray (no consolidation) Radiology Impression Discussion of test interpretation with radiology: I have reviewed the radiologist's reading. External Record Review External record reviewed: Outpatient record Prescription Management I considered prescription management with: Antibiotic and Other Discharge Plan Discharge Clinical Impression: Influenza, Pneumonia Patient Disposition: Home, Self-Care Instructions: Influenza (ED), Community Acquired Pneumonia (ED) Additional Instructions: positive for the flu negative for strep chest xray normal on prelim read if any abnormalities I will call you continue to rest and stay hydrated you can take over the counter cough and cold medications return for worsening symptoms such as increased trouble breathing, severe chest pain or any other concerns. only take the prednisone if you feel you are wheezing more. Prescriptions: New benzonatate 200 mg capsule 200 mg PO BID PRN (Reason: cough) Qty: 20 0RF prednisone 20 mg tablet 40 mg PO DAILY 5 Days Qty: 10 0RF albuterol sulfate 90 mcg/actuation HFA aerosol inhaler 2 puff inhalation QID PRN (Reason: shortness of breath or wheezing) Qty: 6.7 0RF azithromycin 250 mg tablet See Rx Instructions .ROUTE .COMPLEX Qty: 6 0RF Rx Instructions: For 250 mg dose pack: take 500 mg today (day 1), then 250 mg for 4 days (days 2-5) amoxicillin-pot clavulanate 875-125 mg tablet 1 tab PO BID Qty: 14 0RF No Action (DME) blood-glucose meter [FreeStyle Lite Meter] Kit See Rx Instructions .ROUTE .MEDSUPPLY Qty: 1 0RF Rx Instructions: As directed (DME) lancets [FreeStyle Lancets] 28 gauge misc See Rx Instructions .ROUTE .MEDSUPPLY Qty: 100 12RF Rx Instructions: As directed once a day (DME) FreeStyle Lite Strips Strip See Rx Instructions .ROUTE .MEDSUPPLY Qty: 100 12RF Rx Instructions: As directed once a day metformin 500 mg tablet 500 mg PO BID 30 Days Qty: 60 1RF zolpidem [Ambien] 10 mg tablet 10 mg PO BEDTIME PRN (Reason: insomnia) 30 Days Qty: 30 0RF Rx Instructions: #14 due to pts insurance - may partially fill tizanidine 2 mg tablet 2 mg PO Q8H PRN (Reason: muscle spasms) 30 Days Qty: 90 0RF amlodipine 5 mg tablet 5 mg PO DAILY Qty: 90 0RF albuterol sulfate 90 mcg/actuation HFA aerosol inhaler 2 puff inhalation QID PRN (Reason: shortness of breath or wheezing) Qty: 6.7 0RF lamotrigine 200 mg tablet 200 mg PO .QHS Qty: 7 0RF albuterol sulfate [Ventolin HFA] 90 mcg/actuation HFA aerosol inhaler 2 puff inhalation Q6H PRN (Reason: shortness of breath or wheezing) 30 Days Qty: 8.5 5RF clonidine HCl 0.1 mg tablet 0.1 mg PO Q6H PRN (Reason: anxiety) Rx Instructions: Take one tab 4 times daily for anxiety. Hold for BP under 90/60 Mirena 21 mcg/24 hr (8 yrs) 52 mg intrauterine device intrauterine Stand Alone Forms: Work/School Release Interventions: ED Discharge Assessment Last Done: 08/01/24 12:04 Discharge Date/Time: 08/01/24 12:05 Print Language: Kittitian
[2024-08-01 10:50] LABS: IDNOW Serial# 6674DD1D; Strep A Nucleic Acid Negative (Negative)
[2024-08-01 11:14] LABS: Influenza A PCR POSITIVE (Negative); Influenza B PCR NEGATIVE (Negative); Resp Syncy Virus RNA Qual PCR NEGATIVE (Negative); SARS COV2 PCR INHOUSE NEGATIVE (Negative)
[2024-08-01 12:04] VITALS: BP 131/86; PULSE 93; RESP 20; TEMP 36.8; O2SAT 97
[2024-08-01] MEDS: Benzonatate 100 MG CAPSULE 200 MG PO (12:04)
== END 2024-08-01 12:05 | disposition home or self-care (01) ==
PROVIDERS: Emergency Provider Emergency Medicine; PCP Internal Medicine
DX: J10.1 Influenza due to other identified influenza virus with other respiratory manifestations (principal); J18.9 Pneumonia, unspecified organism; R05.9 Cough, unspecified; M79.10 Myalgia, unspecified site; R50.9 Fever, unspecified; Z03.818 Encounter for observation for suspected exposure to other biological agents ruled out
CPT/HCPCS: 0241U; 71045; 87651; 99282; 99283

== ENCOUNTER → 2024-08-01 10:20 | Outpatient (BNV) | payer SELFPAY | PROVIDERS: Emergency Provider Emergency Medicine; PCP Internal Medicine; Visit Provider Radiology Diagnostic Radiology | DX: R91.8 Other nonspecific abnormal finding of lung field (principal) | CPT/HCPCS: 71045 ==

== ENCOUNTER 2024-10-12 11:37 | Outpatient (REF) | payer BC, SELFPAY ==
[2024-10-12 12:55] LABS: MANUAL DIFF FLAG NO
[2024-10-12 13:44] LABS: Basophils Absolute Auto 0.1 X10*3/uL (0.0-0.2); Basophils Percent Auto 0.6 % (0-2); Eosinophils Absolute Auto 0.2 X10*3/uL (0.0-0.4); Hematocrit 42.4 % (37.0-47.0); Hemoglobin 14.6 g/dl (12.0-16.0); Imm Gran Abs Auto 0.11 X10*3/uL (0.00-0.03); Imm Gran Pct Auto 1.3 % (0.0-0.4); Lymphocytes Percent Auto 22.5 % (20-40); Mean Corpuscular HGB Conc 34.4 g/dl (31.0-35.0); Mean Corpuscular Hemoglobin 31.1 pg (27.0-33.0); Mean Corpuscular Volume 90.2 fL (80.0-98.0); Monocytes Absolute Auto 0.6 X10*3/uL (0.1-1.2); Monocytes Percent Auto 7.2 % (2-11); Neutrophils Absolute Auto 5.8 x10*3/uL (2.0-8.3); Neutrophils Percent Auto 66.4 % (45-73); Platelet Count 333 X10*3/uL (160-400); Red Cell Distribution Width 12.4 % (11.0-16.0); White Blood Count 8.8 X10*3/uL (4.8-10.8)
--- OUTSIDE RECORDS SUMMARY | 2024-10-12 13:45 | XMS_ITS | Clinical Summary ---
Author Organization Formerly [facility] Address [address] [place] [address] Care Team Providers Care Assistant Manager Retail Name Role Phone Unavailable Primary Care Provider [...]
[2024-10-12 13:49] LABS: Estimated Average Glucose 143 mg/dL; Hemoglobin A1C 185.0171 umol/L; Hemoglobin A1c % 6.6 % (<6.0); Total Hemoglobin (HGBA1C) 3828.6111 umol/L
[2024-10-12 14:15] LABS: Alanine Aminotransferase 41 U/L (0-31); Albumin Level 4.5 g/dL (3.5-5.0); Alkaline Phosphatase 53 U/L (39-117); Anion Gap 10 (12-20); Aspartate Amino Transferase 24 U/L (5-31); Bilirubin Total 0.6 mg/dL (0.0-1.0); Blood Urea Nitrogen 10 mg/dL (9-16); Calcium 9.1 mg/dL (8.4-10.2); Carbon Dioxide 26 mmol/L (22-29); Chloride 104 mmol/L (96-108); Cholesterol 162 mg/dL (<200); Estimated Glomerular Filt Rate > 60; Glucose Fasting 111 mg/dL (60-99); HDL Cholesterol 57 mg/dL (>40); LDL Cholesterol Calculated 92 mg/dL (<100); Potassium 3.9 mmol/L (3.3-5.1); Sodium 136 mmol/L (135-145); Total Protein 7.3 g/dL (6.5-8.0); Triglycerides 69 mg/dL (<150)
[2024-10-12 14:35] LABS: TSH reflex Free T4 1.46 uIU/mL (0.32-4.0); Vitamin D 25-OH Total 11.9 ng/mL (>30)
[2024-10-12 14:38] LABS: Appearance Urine Cloudy; Color Urine Yellow; Glucose Urine UA Negative (Negative); Leukocyte Esterase Urine Moderate (2+) (Negative); Nitrite Urine Negative (Negative); PH 5.5 (5.0-9.0); UMIC TRIGGER UACC YES; Urine Blood Negative (Negative); Urine Ketones Trace mg/dL (Negative); Urine Protein Negative (Neg-Trace)
[2024-10-12 14:41] LABS: Bacteria Urine 2+ (None Seen); Hyaline Casts Urine 0-2 /LPF (0-2); RBC Urine 0-2 /HPF (0-2); UACC Culture Trigger YES
== END 2024-10-12 11:38 | disposition home or self-care (01) ==
LOC: HO.LAB 11:37
PROVIDERS: Absent Provider Internal Medicine; PCP Internal Medicine
DX: J32.9 Chronic sinusitis, unspecified (principal); J02.9 Acute pharyngitis, unspecified; R07.89 Other chest pain; R35.0 Frequency of micturition; R39.15 Urgency of urination; E55.9 Vitamin D deficiency, unspecified; J84.9 Interstitial pulmonary disease, unspecified; E11.65 Type 2 diabetes mellitus with hyperglycemia; F43.10 Post-traumatic stress disorder, unspecified; F41.1 Generalized anxiety disorder; F31.81 Bipolar II disorder; R21 Rash and other nonspecific skin eruption; G43.909 Migraine, unspecified, not intractable, without status migrainosus; K21.9 Gastro-esophageal reflux disease without esophagitis; F41.9 Anxiety disorder, unspecified; I10 Essential (primary) hypertension
CPT/HCPCS: 36415; 80053; 80061; 81001; 82306; 83036; 84443; 85025; 87086; 96127; 99212

== ENCOUNTER 2024-10-12 11:37 | Outpatient (AMB) | payer MEDICAID, SELFPAY ==
[2024-10-12 11:40] VITALS: BP 128/82; PULSE 95; RESP 20; TEMP 37.1; O2SAT 99; BMI 34.6
--- NOTE | 2024-10-12 11:40 | A.OFFPC_ITS ---
Vital Signs 10/12/24 11:40 Height 5 ft 4 in Weight 201 lb 12.8 oz BMI 34.6 BP 128/82 Blood Pressure Location Lt brachial Position Sitting Respiration 20 Pulse 95 Pulse Source Pulse Oximeter Temp 98.7 F Temp Source Oral Pulse Oximetry (%) 99 Oxygen Delivery Method Room Air Intake Visit Reasons: [facility] 10/08 Bronchitis/back pain Intake Note: Patient is here to follow-up after a visit the emergency department at [facility] in [place], [place] on 10/08/2024. Trial Judge Required: No Accompanied by: Self / Same As Patient Allergies acetaminophen [From PERCOCET] Allergy (Severe, Verified 10/12/24 12:05) HIVES oxycodone [From PERCOCET] Allergy (Severe, Verified 10/12/24 12:05) HIVES codeine [CODEINE] Allergy (Unknown, Verified 10/12/24 12:05) HIVES guaifenesin [From ROBITUSSIN CHEST CONGESTION] Adverse Reaction (Unknown, Verified 10/12/24 12:05) HEART RACES Codeine Phosphate Allergy (Unknown, Uncoded 10/12/24 12:05) Hives Pt states no food allergies Allergy (Unknown, Uncoded 10/12/24 12:05) Unknown Robitussin Chest Congestion Allergy (Unknown, Uncoded 10/12/24 12:05) Hives Medication List - Last Reconciled 10/12/24 by PAVEL Velasquez amlodipine 5 mg PO DAILY blood sugar diagnostic (FreeStyle Lite Strips) As directed once a day blood-glucose meter (FreeStyle Lite Meter kit) As directed clonidine HCl 0.1 mg PO Q6H PRN lamotrigine 200 mg PO .QHS lamotrigine mg PO DAILY lancets (FreeStyle Lancets) As directed once a day levonorgestrel (Mirena) intrauterine metformin 500 mg PO BID 30 days tizanidine 2 mg PO Q8H PRN 30 days zolpidem (Ambien) 10 mg PO BEDTIME PRN 30 days Tobacco use date assessed: 10/12/24 Dental Screening Dental Screen Date: 10/12/24 Did you have a dental visit in the last 12 months?: No Did you have a dental problem in the last 6 months where you did not have access to dental care?: No Was dental information given to patient?: No HPI [facility] 10/08 Bronchitis/back pain HPI Details The patient is a 44-year-old female presenting for follow up related to post [facility] visit with concerns of chest pain, chronic cough, and suspected urinary tract infection. She reported an initial sharp lower back pain and breathing difficulties, initially diagnosed as bronchitis at a previous medical visit. Though the differential included COVID-19 and RSV, both were ruled out with negative test outcomes. The patient is currently experiencing troublesome throat pain complicating swallowing, with dysuria and persistent bilateral flank pain, noted to intensify during urination. This presentation suggests a urinary tract infection, necessitating further evaluation. The patient manages type 2 diabetes mellitus, with current control challenges characterized by significant glucose fluctuations, pegged between 80 mg/dL and 300 mg/dL. She noted increased instability since July, correlating this with familial stressors and inconsistent medication management. Her current antiglycemic treatment includes metformin twice daily, yet stability has been elusive. Compounding her concerns is a chronic cough, first noted in July with a diagnosis of walking pneumonia, which, despite treatment with azithromycin (Z- Smith), has persisted in a mild form with associated chest discomfort post- coughing. The patient reports sharp pain in left lower back and felt like someone was stabbing her Reports that her throat hurts, she is having pain in the both sides of lower back when she urinates Reports burning with urination and frequency-reports that she reported this in the ED at [place] Reports that she is still coughing, reports sob, and mild chest pain with coughing lungs clear, boggy reddened turbinates, able to visualized throat well [facility] Medical History Vitamin D deficiency Diabetes mellitus Obesity (BMI 30-39.9) Osteoarthritis Degenerative disc disease, cervical Thoracic spondylosis Impaired glucose metabolism Thoracic back pain Right leg paresthesias Migraines Obesity GERD without esophagitis Depression Anxiety Insomnia Surgical History History of renal stent History of lumpectomy of right breast Social History Household Members: Other Household Members Other:: 22 yr old daughter Housing: Apartment Alcohol intake: never Patient Tobacco Use Status: Never used Tobacco Tobacco use type: Cigarette e-Cigarette/Vaping Use: Never Used Second Hand Smoke Exposure: Yes Substance Use Type: Marijuana service: No Current occupational status: employed 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 1. Little interest or pleasure in doing things: not at all 2. Feeling down, depressed, or hopeless: not at all 3. Trouble falling or staying asleep, or sleeping too much: not at all 4. Feeling tired or having little energy: not at all 5. Poor appetite or overeating: not at all 6. Feeling bad about yourself - or that you are a failure or have let yourself or your family down: not at all 7. Trouble concentrating on things, such as reading the newspaper or watching television: not at all 8. Moving or speaking so slowly that other people could have noticed. Or the opposite - being so fidgety or restless that you have been moving around a lot more than usual: not at all 9. Thoughts that you would be better off or of hurting yourself in some way: not at all Total score: 0 Depression Screening Interpretation: Negative Depression Screening Done: Yes Source: Developed by Drs. Misha Rock, Linda Forbes, James Jones and colleagues, with an educational irene from [employer]. Thrive Questionnaire Date Thrive assessed: 10/12/24 I am a: Patient What is your living situation today?: I have a steady place to live Within the past 12 months, did the food you bought not last and you didn't have the money to get more?: Never true Within the past 12 months, did you worry whether your food would run out before you got money to buy more?: Never true Do you have trouble paying for medicines?: No Do you have trouble getting transportation to medical appointments?: No Do you have trouble paying your heating and electricity bill?: No Do you have trouble taking care of your child, family member or friend?: No Do you have trouble with day-to-day activities such as bathing, preparing meals, shopping, managing finances, etc.?: No Are you currently unemployed and looking for a job?: No Are you interested in more education?: No Please select the resources that you would like help with: None Currently or been in a relationship where the following occur: No concerns reported THRIVE Score: 0 AUDIT C Alcohol Use Questionnaire (AUDIT-C) 1. How often do you have a drink containing alcohol?: Never Total Score: 0 Score Reviewed/Action Taken: No ELLEN-7 AMB Questionnaire ELLEN-7 Date ELLEN - 7 assessed: 10/12/24 Feeling nervous, anxious, or on edge: 3 = Nearly every day Not being able to stop or control worryin = Nearly every day Worrying too much about different things: 3 = Nearly every day Trouble relaxin = Nearly every day Being so restless that it is hard to sit still: 3 = Nearly every day Becoming easily annoyed or irritable: 3 = Nearly every day Feeling afraid as if something awful might happen: 1 = Several days Total ELLEN-7 score (0-4 normal; 5-9 mild; 10-14 moderate; 15-21 severe): 19 Source: Developed by Drs. Misha Rock, Linda Forbes, James Jones and colleagues, with an educational irene from [employer]. ELLEN-7 Assessment Billing ELLEN-7 Assessment Tool: ELLEN-7 Assessment 92823 Review of Systems Const Details: - Respiratory: Reports chronic cough and chest discomfort post-coughing; denies shortness of breath. - Gastrointestinal: Denies nausea or vomiting. - Genitourinary: Reports dysuria, frequent urination, and bilateral flank pain during urination. - Endocrine: Reports blood glucose fluctuations and episodes of hypoglycemia. - Neurological: Denies headaches or changes in vision. Denies headache(s) Eyes Denies loss of vision ENT Denies vertigo, Denies dizziness, Denies headache(s) and Denies sore throat Card Denies chest pain, Denies leg edema and Denies lightheadedness Resp Reports cough, Denies hemoptysis, Denies wheezing and Reports other (chest tightness) GI Denies abdominal pain, Denies melena, Denies constipation, Denies diarrhea and Denies vomiting Denies urinary frequency, Reports dysuria, Reports urinary urgency and Reports other (bilateral flank pain) Musc Denies arthralgias, Denies joint swelling, Denies numbness and Denies tingling Neuro Denies Abnormal speech present, Denies vertigo, Denies dizziness, Denies headache(s), Denies loss of vision, Denies numbness and Denies tingling Harvey/Lymph Denies easy bleeding and Denies easy bruising Aller/Immun Denies wheezing Physical exam (Primary Care) Vital Signs: Last Vital Signs Temp 98.7 F 10/12/24 11:40 Pulse 95 10/12/24 11:40 Resp 20 10/12/24 11:40 BP 128/82 10/12/24 11:40 Pulse Ox 99 10/12/24 11:40 Oxygen Delivery Method Room Air 10/12/24 11:40 BMI result Body Mass Index 34.6 Tobacco/Smoking Status: Tobacco use Status Tobacco use date assessed 10/12/24 10/12/24 11:51 Patient Tobacco Use Status Never used Tobacco 10/12/24 11:51 Tobacco use type Cigarette 10/12/24 11:51 e-Cigarette/Vaping Use Never Used 10/12/24 11:51 PHQ-9: PHQ-9 Score PHQ-9: Total score 0 10/12/24 15:29 Depression Screening Interpretation: Negative Thrive Assessment: Date of Thrive Assessment Date Thrive assessed 10/12/24 10/12/24 11:51 Currently or been in a relationship where the following occur: No concerns reported Const General: healthy appearing, no acute distress, alert and awake Nutritional Appearance: well nourished Orientation/consciousness: oriented to person, oriented to place and oriented to time HENMT Ears: TM's normal bilaterally General nose exam: Abnormal mucous membranes and turbinates present boggy and erythematous Throat: Yes posterior oropharynx normal Eyes Conjunctivae: conjunctivae normal Sclerae: sclerae normal Pupils: Equal, round and reactive pupils present Neck Neck: Yes no lymphadenopathy Thyroid: Thyroid normal Carotids: no bruits Resp Effort & Inspection: normal respiratory effort and not tachypneic Auscultation: no crackles, no rales, no rhonchi and no wheezes Cardio Rate: regular rate Rhythm: regular rhythm Heart sounds: no murmurs and normal S1 and S2 GI Palpation (GI): Soft to palpation, nontender, Hepatomegaly present and Splenomegaly present Auscultation: normal bowel sounds General: Yes CVA tenderness Back/Spine/Pelvis Back: CVA tenderness Skin General skin exam: no rashes or lesions noted and dry skin Neuro General: oriented to person, oriented to place and oriented to time Cranial nerves: Yes Equal, round and reactive pupils present Speech: No Abnormal speech present Gait exam (Neuro): Normal gait present Coding Level of Care Code Est Pt Level 3 (60304) Diagnoses Rhinosinusitis J32.9 Sore throat J02.9 Chest tightness R07.89 Urinary frequency R35.0 Urinary urgency R39.15 Additional Codes ELLEN-7 Assessment Billing - ELLEN-7 Assessment Tool: ELLEN-7 Assessment [id number] ([id number]) Time Spent (min) 31 Assessment & Plan Assessment & Plan (1) Rhinosinusitis: Code(s): J32.9 - Chronic sinusitis, unspecified Category: Medical (2) Sore throat: Code(s): J02.9 - Acute pharyngitis, unspecified Category: Medical (3) Chest tightness: Code(s): R07.89 - Other chest pain Category: Medical (4) Urinary frequency: Code(s): R35.0 - Frequency of micturition Category: Medical (5) Urinary urgency: Code(s): R39.15 - Urgency of urination Category: Medical Plan Augmentin is prescribed to address the symptoms of a suspected UTI and to manage upper respiratory symptoms, while prednisone will be tapered to help with inflammation. Blood glucose monitoring is reiterated as vital, especially given recent fluctuations, for which metformin adherence should be ensured. Labs scheduled, including HbA1c for glycemic control and urine culture, to verify infection type. Follow-up is scheduled to monitor progress and evaluate treatment adherence. Patient was informed and verbally consented to the use of an ambient scribe for clinic note documentation during this visit. Medications: New amoxicillin-pot clavulanate 875-125 mg 1 tab PO BID 20 tabs 0RF 10 days J02.9 - Acute pharyngitis, unspecified, J32.9 - Chronic sinusitis, unspecified, R07.89 - Other chest pain prednisone see taper instructions take 4 tabs x 2 days, then 3 tabs x 2 days, then 1 tab x 2 days =20 tabs for 8 days 10 mg PO DIRECTED 20 tabs 0RF prednisone see taper instructions take 4 tabs x 2 days, then 3 tabs x 2 days, then 2 tab x 2 days, then 1 tab x 2 days=20 tabs for 8 days 10 mg PO DIRECTED 20 tabs 0RF albuterol sulfate 90 mcg/actuation 2 puffs inhalation Q4-6H PRN 6.7 grams 1RF shortness of breath or wheezing
--- OUTSIDE RECORDS SUMMARY | 2024-10-12 12:51 | XMS_ITS | Clinical Summary ---
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
== END 2024-10-12 12:31 | disposition home or self-care (01) ==
LOC: HO.HMCH 11:38
PROVIDERS: PCP Internal Medicine
DX: J32.9 Chronic sinusitis, unspecified (principal); J02.9 Acute pharyngitis, unspecified; R07.89 Other chest pain; R35.0 Frequency of micturition; R39.15 Urgency of urination